=== PATIENT | male | born 1965 ===

== ENCOUNTER 2020-07-02 22:30 | Inpatient (IN) | payer OTHER ==
[2020-07-02] MEDS ORDERED: NITROGLYCERIN OINT 1 INCH/GM PACKET TOPICAL STA (22:43)
[2020-07-02] MEDS ORDERED: NITROGLYCERIN SL TABS 0.4 MG TAB SUBLINGUAL STA (22:43)
[2020-07-02] MEDS ORDERED: ASPIRIN 81 MG PO STA (22:43)
--- NOTE | 2020-07-02 23:03 | ED ---
SOB HPI - General Chief Complaint: Shortness of Breath Stated Complaint: SOB Time Seen by Provider: 07/02/20 22:42 Source: patient Mode of arrival: wheelchair Limitations: no limitations - History of Present Illness Initial Comments: This patient is a 55-year-old man who presents with complaints of shortness of breath and heavy feeling on his chest. The patient states that he has had worsening of his breathing going back for number weeks. The chest pressure came on this evening. He states that it has improved since he got here and they placed him on oxygen. The patient relates that he does have history of congestive heart failure. He was diagnosed with this a couple of years ago when he was in [place], at that time he also had a stroke with right-sided weakness that has improved after therapy. The patient has not had any nausea or vomiti ng, diaphoresis, palpitations or syncope. Patient did note at home that his blood pressure has been elevated. MD Complaint: shortness of breath, chest pain -: days(s) Severity: mild Quality: other (Pressure) Consistency: constant Improves With: oxygen Worsens With: lying flat, exertion Known History Of: congestive heart failure, diabetes Associated Symptoms: chest pain, cough, orthopnea Treatments Prior to Arrival: none - Related Data Home Oxygen Therapy: No Home Medications Medication Instructions Recorded Confirmed Atorvastatin [Lipitor] 20 mg PO DAILY 07/03/20 07/03/20 Clopidogrel [Plavix] 75 mg PO DAILY 07/03/20 07/03/20 Furosemide [Lasix] 40 mg PO DAILY 07/03/20 07/03/20 Insulin Glargine,Hum.rec.anlog See Protocol SQ AC-TID PRN 07/03/20 07/03/20 [Basaglar Kwikpen U-100] Losartan Potassium 100 mg PO DAILY 07/03/20 07/03/20 Potassium Chloride ER [K-Dur 20] 20 meq PO DAILY 07/03/20 07/03/20 Allergies Allergy/AdvReac Type Severity Reaction Status Date / Time Penicillins Allergy Swelling Verified 07/03/20 09:10 Review of Systems ROS Statement: Those systems with pertinent positive or pertinent negative responses have been documented in the HPI. ROS Other: All systems not noted in ROS Statement are negative. Constitutional: Denies: fever, chills, weakness Respiratory: Reports: cough (Clear sputum), dyspnea. Denies: wheezes, hemoptysis Cardiovascular: Reports: chest pain, dyspnea on exertion, orthopnea, edema. Denies: palpitations, syncope Gastrointestinal: Denies: abdominal pain, nausea, vomiting, melena, hematochezia Genitourinary: Denies: dysuria, hematuria Musculoskeletal: Denies: back pain Skin: Denies: rash Neurological: Denies: headache, weakness, numbness Past Medical History Past Medical History: CVA/TIA, Diabetes Mellitus, Hypertension Additional Past Medical History / Comment(s): right hand/leg weakness d/t CVA History of Any Multi-Drug Resistant Organisms: None Reported Past Surgical History: Adenoidectomy, Appendectomy, Tonsillectomy Past Psychological History: No Psychological Hx Reported Smoking Status: Never smoker Past Alcohol Use History: None Reported Past Drug Use History: None Reported General Exam Limitations: no limitations General appearance: alert, in no apparent distress Head exam: Present: atraumatic, normocephalic Eye exam: Present: normal appearance. Absent: scleral icterus, conjunctival injection Neck exam: Present: normal inspection, full ROM Respiratory exam: Present: respiratory distress (Mild tachypnea), rales (Bilateral bases). Absent: wheezes, rhonchi, stridor, accessory muscle use, decreased breath sounds, prolonged expiratory Cardiovascular Exam: Present: regular rate, normal rhythm, gallop. Absent: systolic murmur, diastolic murmur, rubs GI/Abdominal exam: Present: soft. Absent: distended, tenderness, guarding, rebound, rigid, mass Extremities exam: Present: normal capillary refill, pedal edema (Bilateral edema), other (Chronic stasis changes). Absent: tenderness, calf tenderness Back exam: Present: normal inspection. Absent: CVA tenderness (R), CVA tenderness (L) Neurological exam: Present: alert Skin exam: Present: warm, dry, intact, normal color. Absent: rash Course Vital Signs 07/02/20 07/02/20 07/02/20 22:32 23:07 23:30 Temperature 98.0 F Pulse Rate 80 73 Pulse Rate [ Pulse Oximetery ] Respiratory 24 24 22 Rate Blood Pressure 202/117 187/115 Blood Pressure [Left Arm Sitting] O2 Sat by Pulse 99 98 Oximetry 07/02/20 07/03/20 07/03/20 23:53 01:00 01:36 Temperature 98.7 F Pulse Rate 74 74 Pulse Rate [ 88 Pulse Oximetery ] Respiratory 22 22 Rate Blood Pressure 164/86 176/97 Blood Pressure 178/92 [Left Arm Sitting] O2 Sat by Pulse 100 99 98 Oximetry Medical Decision Making - Medical Decision Making This patient is a 55-year-old man who presents with dyspnea and chest pressure. He is hypertensive on arrival. The patient's workup does reveal presence of congestive heart failure, also elevated BUN/creatinine without any baseline for comparison here. The patient be admitted with cardiology consultation, also to have echocard iogram as he states the last one was performed in [place] approximately 2 years ago. Patient also to have nephrology consultation. Regarding the chest x-ray, patient denies pneumonia symptoms. He is not having fever or chills. He states that his cough is only productive of phlegm, no purulent sputum. - Lab Data Result diagrams: 07/09/20 07:08 07/09/20 07:08 Lab Results 07/02/20 07/02/20 07/02/20 Range/Units 22:50 22:50 22:50 WBC 7.1 (3.8-10.6) k/uL RBC 5.37 (4.30-5.90) m/uL Hgb 15.9 (13.0-17.5) gm/dL Hct 47.2 (39.0-53.0) % MCV 87.9 (80.0-100.0) fL MCH 29.6 (25.0-35.0) pg MCHC 33.7 (31.0-37.0) g/dL RDW 14.1 (11.5-15.5) % Plt Count 215 (150-450) k/uL Neutrophils % 70 % Lymphocytes % 18 % Monocytes % 6 % Eosinophils % 3 % Basophils % 1 % Neutrophils # 5.0 (1.3-7.7) k/uL Lymphocytes # 1.3 (1.0-4.8) k/uL Monocytes # 0.5 (0-1.0) k/uL Eosinophils # 0.2 (0-0.7) k/uL Basophils # 0.1 (0-0.2) k/uL PT 10.6 (9.0-12.0) sec INR 1.0 (<1.2) APTT 27.3 (22.0-30.0) sec D-Dimer 0.78 H (<0.60) mg/L FEU Sodium 134 L (137-145) mmol/L Potassium 4.3 (3.5-5.1) mmol/L Chloride 105 (98-107) mmol/L Carbon Dioxide 27 (22-30) mmol/L Anion Gap 2 mmol/L BUN 33 H (9-20) mg/dL Creatinine 2.61 H (0.66-1.25) mg/dL Est GFR (CKD-EPI)AfAm 30 (>60 ml/min/1.73 sqM) Est GFR (CKD-EPI)NonAf 26 (>60 ml/min/1.73 sqM) Glucose 118 H (74-99) mg/dL Plasma Lactic Acid Kiko (0.7-2.0) mmol/L Calcium 8.4 (8.4-10.2) mg/dL Magnesium 2.1 (1.6-2.3) mg/dL Total Bilirubin 1.0 (0.2-1.3) mg/dL AST 27 (17-59) U/L ALT 16 (4-49) U/L Alkaline Phosphatase 107 (38-126) U/L Troponin I (0.000-0.034) ng/mL NT-Pro-B Natriuret Pep pg/mL Total Protein 5.5 L (6.3-8.2) g/dL Albumin 2.8 L (3.5-5.0) g/dL 07/02/20 07/02/20 07/02/20 Range/Units 22:50 22:50 22:50 WBC (3.8-10.6) k/uL RBC (4.30-5.90) m/uL Hgb (13.0-17.5) gm/dL Hct (39.0-53.0) % MCV (80.0-100.0) fL MCH (25.0-35.0) pg MCHC (31.0-37.0) g/dL RDW (11.5-15.5) % Plt Count (150-450) k/uL Neutrophils % % Lymphocytes % % Monocytes % % Eosinophils % % Basophils % % Neutrophils # (1.3-7.7) k/uL Lymphocytes # (1.0-4.8) k/uL Monocytes # (0-1.0) k/uL Eosinophils # (0-0.7) k/uL Basophils # (0-0.2) k/uL PT (9.0-12.0) sec INR (<1.2) APTT (22.0-30.0) sec D-Dimer (<0.60) mg/L FEU Sodium (137-145) mmol/L Potassium (3.5-5.1) mmol/L Chloride (98-107) mmol/L Carbon Dioxide (22-30) mmol/L Anion Gap mmol/L BUN (9-20) mg/dL Creatinine (0.66-1.25) mg/dL Est GFR (CKD-EPI)AfAm (>60 ml/min/1.73 sqM) Est GFR (CKD-EPI)NonAf (>60 ml/min/1.73 sqM) Glucose (74-99) mg/dL Plasma Lactic Acid Kiko 0.7 (0.7-2.0) mmol/L Calcium (8.4-10.2) mg/dL Magnesium (1.6-2.3) mg/dL Total Bilirubin (0.2-1.3) mg/dL AST (17-59) U/L ALT (4-49) U/L Alkaline Phosphatase (38-126) U/L Troponin I 0.033 (0.000-0.034) ng/mL NT-Pro-B Natriuret Pep 55498 pg/mL Total Protein (6.3-8.2) g/dL Albumin (3.5-5.0) g/dL - EKG Data -: EKG Interpreted by Oh EKG shows normal: sinus rhythm, intervals (UT interval 230 ms, prolonged consistent with a first-degree AV block. QRS duration 124 ms, prolonged consistent with the bifascicular block. QTC is 481 ms, normal.), QRS complexes (There is a right bundle-branch block and a left anterior fascicular block, consistent with a bifascicular block.) Rate: normal (Rate 79 bpm) Interpretation: other (Possible old inferior infarct.) Disposition Clinical Impression: Congestive heart failure, Acute kidney injury, Hypertension Disposition: ADMITTED IP TO THIS [facility] Condition: Fair
[2020-07-02 23:09] LABS: Basophils # (A) 0.1 k/uL (0-0.2); Basophils % (A) 1 %; Eosinophils # (A) 0.2 k/uL (0-0.7); Eosinophils % (A) 3 %; HCT 47.2 % (39.0-53.0); HGB 15.9 gm/dL (13.0-17.5); Lymphocytes # (A) 1.3 k/uL (1.0-4.8); Lymphocytes % (A) 18 %; MCH 29.6 pg (25.0-35.0); MCHC 33.7 g/dL (31.0-37.0); MCV 87.9 fL (80.0-100.0); Mean Platelet Volume 7.8; Monocytes # (A) 0.5 k/uL (0-1.0); Monocytes % (A) 6 %; Neutrophils % (A) 70 %; Platelet Count 215 k/uL (150-450); RBC 5.37 m/uL (4.30-5.90); RDW 14.1 % (11.5-15.5); WBC 7.1 k/uL (3.8-10.6)
[2020-07-02 23:19] LABS: Albumin 2.8 g/dL (3.5-5.0); Calcium 8.4 mg/dL (8.4-10.2); Magnesium 2.1 mg/dL (1.6-2.3); Potassium 4.3 mmol/L (3.5-5.1); Total Protein 5.5 g/dL (6.3-8.2)
[2020-07-02 23:22] LABS: Partial Thromboplastin Time 27.3 sec (22.0-30.0); Prothrombin Time 10.6 sec (9.0-12.0)
[2020-07-02 23:25] LABS: D-Dimer 0.78 mg/L FEU (<0.60)
--- NOTE | 2020-07-02 23:31 | XR ---
EXAMINATION TYPE: XR chest 2V DATE OF EXAM: 07/02/2020 COMPARISON: NONE HISTORY: Difficulty breathing TECHNIQUE: FINDINGS: There is opacification left lower hemithorax. There is mild pulmonary congestion. Heart is probably enlarged. There are chest leads. Right lung is clear of consolidation. IMPRESSION: There is left lower lobe pneumonia and left pleural effusion. Mild pulmonary congestion.
[2020-07-02] MEDS ORDERED: MORPHINE SULFATE 4 MG/ML SYRINGE IV STA (23:36)
[2020-07-02] MEDS ORDERED: hydrALAZINE HCL 20 MG/ML 1 ML VIAL IVP STA (23:37)
[2020-07-02] MEDS ORDERED: FUROSEMIDE 10 MG/ML 4 ML VIAL IV SCH (23:45)
[2020-07-03] MEDS: HEPARIN SODIUM,PORCINE 5,000 UNIT/ML 1 ML VIAL SQ SCH ×4 (00:55→23:23)
[2020-07-03 02:10] LABS: Appearance,Urine Clear (Clear); Bilirubin,Urine Negative (Negative); Blood,Urine Moderate (Negative); Color,Urine Yellow; Glucose,Urine (UA) 2+ (Negative); Hyaline Casts,Urine 5 /lpf (0-2); Ketones,Urine Negative (Negative); Leukocyte Esterase,Urine Negative (Negative); Mucus,Urine Rare /hpf; Nitrite,Urine Negative (Negative); PH, Urine 6.5 (5.0-8.0); Protein,Urine 3+ (Negative); RBC,Urine 16 /hpf (0-5); Specific Gravity,Urine 1.013 (1.001-1.035); Squamous Epithelial Cell,Urine 1 /hpf (0-4); Urobilinogen,Urine <2.0 mg/dL (<2.0); WBC,Urine 3 /hpf (0-5)
--- NOTE | 2020-07-03 02:20 | US ---
EXAMINATION TYPE: US kidneys/renal and bladder DATE OF EXAM: 07/03/2020 COMPARISON: NONE CLINICAL HISTORY: kidney failure. Kidney failure. Hx hypertension. EXAM MEASUREMENTS: Right Kidney: 12.4 x 6.5 x 4.0 cm Left Kidney: 12.9 x 6.4 x 5.5 cm -Limited due to body habitus and gas. Right Kidney: No hydronephrosis or masses seen. Measures slightly enlarged versus upper limits of nor mal. Left Kidney: No hydronephrosis or masses seen. Measures slightly enlarged. Bladder: Appears to be anechoic. Bilateral Jets seen: Yes -Area of mixed echogenicity seen posterior to the bladder appears to be the prostate, appears promine nt measurin.7 x 5.4 x 4.7 cm. IMPRESSION: Normal exam. No evidence of renal mass or obstruction. Normal urinary bladder.
[2020-07-03 03:43] LABS: Creatinine,Urine Random 73.7 mg/dL
[2020-07-03 04:14] LABS: Total Protein,Urine Random >600 mg/dL (<12)
[2020-07-03 06:54] LABS: Glucose,Whole Blood 91 mg/dL (75-99)
[2020-07-03] MEDS: INSULIN ASPART (NovoLOG) 100 UNIT/ML VIAL SQ SCH ×4 (07:09→21:03)
[2020-07-03] MEDS: ATORVASTATIN 20 MG TAB PO SCH (08:56)
[2020-07-03] MEDS: CLOPIDOGREL 75 MG TAB PO SCH (08:57)
[2020-07-03] MEDS: NITROGLYCERIN OINT 1 INCH/GM PACKET TOPICAL SCH ×4 (08:58→21:04)
[2020-07-03] MEDS ORDERED: METOPROLOL SUCCINATE (ER) 50 MG TAB.ER.24H PO SCH (09:00)
[2020-07-03] MEDS ORDERED: LOSARTAN 50 MG TAB PO SCH (09:00)
--- NOTE | 2020-07-03 10:07 | P.CRDCN ---
History of Present Illness Consult date: 07/03/20 Consult reason: congestive heart failure Chief complaint: Shortness of breath History of present illness: This is a pleasant 55-year-old gentleman with documented history of diabetes, hypertension, hyperlipidemia, patient also has history of a CVA in October 2018, he underwent coiling of the brain also some stenting procedure of which exact details he is unclear. This was performed in [facility] in October 2018. According to the patient he's been progressively more and more short of breath over the past one month or more, he also had noticed significant increase in peripheral edema, up into his thigh area. Positive PND and orthopnea. Chest x- ray on presentation here showed a questionable left lower lobe pneumonia with left pleural effusion EKG showed normal sinus rhythm with first-degree AV block, right bundle branch block pattern, left anterior fascicular block inferior Q waves and some anterior ST depression noted. Blood pressure 178/80, heart rate in the 70s, 98% on 3 L of oxygen. White blood cell count 7.1, hemoglobin 15.9, platelet count 2:15. D-dimer 0.7. Sodium 134, potassium 4.3, chloride 105, CO2 27, BUN 33, creatinine 2.6. Troponin 0.03, 0.03, 0.045. BNP level XXVII,DC. Patient's home medications included Procardia, Plavix, losartan, and Lipitor. Here he has been placed on aspirin 325 mg daily, subcu heparin, Plavix, Lipitor, Lasix 40 IV twice a day, Cozaar 100 mg daily, Procardia 60 mg daily and Nitropaste. We will request an echocardiogram with Doppler study be performed, decrease the aspirin to 81 mg daily, discontinue the IV push Lasix and start the patient on a Lasix drip. Hold the Cozaar, check daily BUN and creatinine, initiate the patient on a beta tha. Past Medical History Past Medical History: Heart Failure, CVA/TIA, Diabetes Mellitus, Hypertension Additional Past Medical History / Comment(s): right hand/leg weakness d/t CVA History of Any Multi-Drug Resistant Organisms: None Reported Past Surgical History: Adenoidectomy, Appendectomy, Tonsillectomy Past Psychological History: No Psychological Hx Reported Smoking Status: Never smoker Past Alcohol Use History: None Reported Past Drug Use History: None Reported Medications and Allergies Home Medications Medication Instructions Recorded Confirmed Type Atorvastatin [Lipitor] 20 mg PO DAILY 07/03/20 07/03/20 History Clopidogrel [Plavix] 75 mg PO DAILY 07/03/20 07/03/20 History Furosemide [Lasix] 40 mg PO DAILY 07/03/20 07/03/20 History Insulin Glargine,Hum.rec.anlog See Protocol SQ AC-TID PRN 07/03/20 07/03/20 Hist ory [Basaglar Kwikpen U-100] Losartan Potassium 100 mg PO DAILY 07/03/20 07/03/20 History Potassium Chloride ER [K-Dur 20] 20 meq PO DAILY 07/03/20 07/03/20 History Allergies Allergy/AdvReac Type Severity Reaction Status Date / Time Penicillins Allergy Swelling Verified 07/03/20 09:10 Physical Exam Vitals: Vital Signs Temp Pulse Pulse Resp BP BP Pulse Ox 07/03/20 09:24 77 24 07/03/20 08:18 98.0 F 77 24 178/88 98 07/03/20 02:57 88 22 07/03/20 01:36 98.7 F 88 178/92 98 07/03/20 01:00 74 22 176/97 99 07/02/20 23:53 74 22 164/86 100 07/02/20 23:30 73 22 187/115 98 07/02/20 23:07 24 07/02/20 22:32 98.0 F 80 24 202/117 99 Intake and Output 07/02/20 07/03/20 07/03/20 22:59 06:59 14:59 Intake Total 240 130 Balance 240 130 Intake: IV 10 Invasive Line 1 10 Oral 240 120 Other: Voiding Method Urinal # Voids 2 Weight 134.263 kg 127.2 kg 127.2 kg PHYSICAL EXAMINATION: GENERAL: 55-year-old gentleman in no acute distress at the time of my examination HEENT: Head is atraumatic, normocephalic. Pupils equal, round. Sclera anic teric. Conjunctiva are clear. Mucous membranes of the mouth are moist. Neck is supple. There is elevated jugular venous pressure up to the angle of the jaw. No carotid bruit is heard. HEART EXAMINATION: Heart S1 S2 1 systolic murmur is heard CHEST EXAMINATION: Reveal diminished air entry bilaterally with rales heard to the bases bilaterally ABDOMEN: Soft, obese, nontender. Bowel sounds are heard. No organomegaly noted. EXTREMITIES: 2+ peripheral pulses with 2-3+ evidence of peripheral edema. NEUROLOGIC patient is awake, alert and oriented 3. . Results 07/02/20 22:50 07/02/20 22:50 Cardiac Enzymes 07/02/20 07/02/20 07/03/20 Range/Units 22:50 22:50 02:20 AST 27 (17-59) U/L Troponin I 0.033 0.032 (0.000-0.034) ng/mL 07/03/20 Range/Units 05:16 AST (17-59) U/L Troponin I 0.045 H* (0.000-0.034) ng/mL Coagulation 07/02/20 Range/Units 22:50 PT 10.6 (9.0-12.0) sec APTT 27.3 (22.0-30.0) sec CBC 07/02/20 Range/Units 22:50 WBC 7.1 (3.8-10.6) k/uL RBC 5.37 (4.30-5.90) m/uL Hgb 15.9 (13.0-17.5) gm/dL Hct 47.2 (39.0-53.0) % Plt Count 215 (150-450) k/uL Comprehensive Metabolic Panel 07/02/20 Range/Units 22:50 Sodium 134 L (137-145) mmol/L Potassium 4.3 (3.5-5.1) mmol/L Chloride 105 (98-107) mmol/L Carbon Dioxide 27 (22-30) mmol/L BUN 33 H (9-20) mg/dL Creatinine 2.61 H (0.66-1.25) mg/dL Glucose 118 H (74-99) mg/dL Calcium 8.4 (8.4-10.2) mg/dL AST 27 (17-59) U/L ALT 16 (4-49) U/L Alkaline Phosphatase 107 (38-126) U/L Total Protein 5.5 L (6.3-8.2) g/dL Albumin 2.8 L (3.5-5.0) g/dL Current Medications Generic Name Dose Route Start Last Admin Trade Name Freq PRN Reason Stop Dose Admin Aspirin 81 mg 07/04/20 09:00 Aspirin 81 Mg PO DAILY BRENT Atorvastatin Calcium 20 mg 07/03/20 09:00 07/03/20 08:56 Atorvastatin 20 Mg Tab PO 20 mg DAILY BRENT Administration Clopidogrel Bisulfate 75 mg 07/03/20 09:00 07/03/20 08:57 Clopidogrel 75 Mg Tab PO 75 mg DAILY BRENT Administration Heparin Sodium (Porcine) 5,000 unit 07/03/20 00:00 07/03/20 08:58 Heparin Sodium,Porcine 5,000 Unit/Ml 1 Ml Vial SQ 5,000 unit Q8HR BRENT Administration Furosemide 100 mg/ Sodium 100 mls @ 10 mls/hr 07/03/20 09:45 Chloride IV .Q10H BRENT 10 MG/HR Insulin Aspart 0 unit 07/03/20 07:30 07/03/20 07:09 Insulin Aspart (Novolog) 100 Unit/Ml Vial SQ Not Given ACHS [facility] Protocol Metoprolol Succinate 50 mg 07/03/20 09:00 07/03/20 08:56 Metoprolol Succinate (Er) 50 Mg Tab.Er.24h PO 50 mg DAILY BRENT Administration Nitroglycerin 1 inch 07/03/20 09:00 07/03/20 08:58 Nitroglycerin Oint 1 Inch/Gm Packet TOPICAL 1 inch QID BRENT Administration Sodium Chloride 10 ml 07/03/20 09:00 07/03/20 09:07 Sodium Chloride 0.9% Flush 10 Ml Syringe IV 10 ml BID BRENT Administration Intake and Output 07/02/20 07/03/20 07/03/20 22:59 06:59 14:59 Intake Total 240 130 Balance 240 130 Intake: IV 10 Invasive Line 1 10 Oral 240 120 Other: Voiding Method Urinal # Voids 2 Weight 134.263 kg 127.2 kg 127.2 kg Patient Weight 07/04/20 06:59 Weight 127.2 kg 07/02/20 22:50 07/02/20 22:50 EKG Interpretations (text) EKG shows normal sinus rhythm with first-degree AV block, right bundle branch block pattern, left anterior fascicular block, inferior Q waves and anterior ST depression. Assessment and Plan Plan: Assessment and plan #1 congestive heart failure, acute, LV function unknown #2 hypertension, accelerated #3 acute renal failure #4 diabetes #5 hyperlipidemia #6 history of CVA with mild residual weakness in the right arm, October 2018, patient did undergo coiling at that time questionable stenting as well #7 family history of premature coronary artery disease in his mom #8 mildly abnormal troponins, could be secondary to abnormal renal function, patient will however require workup for underlying coronary artery disease once his heart failure resolves. Plan We will obtain an echocardiogram with Doppler study. Decrease aspirin 81 mg daily. Discontinue Cozaar, discontinue IV push Lasix and start the patient on a Lasix drip. We will also start the patient on Coreg, discontinue Nitropaste, start the patient on some hydralazine and discontinue the Procardia. Patient will require workup for underlying coronary artery disease once his heart failure resolves. Further recommendations to follow. DNP note has been reviewed, I agree with a documented findings and plan of care. Patient was seen and examined.
[2020-07-03] MEDS: hydrALAZINE HCL 25 MG TAB PO SCH ×2 (11:04→21:01)
[2020-07-03] MEDS: FUROSEMIDE 100 MG in SODIUM CHLORIDE 0.9% 90 ML IV SCH ×2 (11:04→17:04)
[2020-07-03] MEDS: carvediloL 6.25 MG TAB PO SCH ×2 (11:04→17:33)
[2020-07-03 11:53] LABS: Glucose,Whole Blood 102 mg/dL (75-99)
--- NOTE | 2020-07-03 12:16 | P.NPCON ---
History of Present Illness - Reason for Consult acute renal failure - History of Present Illness reason for consultation: Acute kidney injury History of present illness: Patient is a 55-year-old male seen in consultation for acute kidney injury. Patient's creatinine was 2.61 on admission yesterday. Unknown as to what his baseline renal function is. Patient denies any prior history of kidney disease. He presented to the hospital due to worsening edema and shortness of breath. He was started on Lasix drip this morning. He has been voiding. No hematuria or dysuria. No chest pain. Denies regular use of nonsteroidals. He does have long-standing history of diabetes mellitus. he does admit to episodes of emesis in the morning. Oral intake has been fair. No diarrhea. blood pressures on the higher side. no fever or chills. No cough. Renal ultrasound revealed normal sized kidneys without any evidence of hydronephrosis. Vital signs are stable. General: The patient appeared well nourished and normally developed. HEENT: Head exam is unremarkable. Neck is without jugular venous distension. LUNGS: Breath sounds decreased. HEART: Rate and Rhythm are regular. ABDOMEN: soft, nontender. EXTREMITITES: 2+ edema. Past Medical History Past Medical History: Heart Failure, CVA/TIA, Diabetes Mellitus, Hypertension Additional Past Medical History / Comment(s): right hand/leg weakness d/t CVA History of Any Multi-Drug Resistant Organisms: None Reported Past Surgical History: Adenoidectomy, Appendectomy, Tonsillectomy Past Psychological History: No Psychological Hx Reported Smoking Status: Never smoker Past Alcohol Use History: None Reported Past Drug Use History: None Reported Medications and Allergies Home Medications Medication Instructions Recorded Confirmed Type Atorvastatin [Lipitor] 20 mg PO DAILY 07/03/20 07/03/20 History Clopidogrel [Plavix] 75 mg PO DAILY 07/03/20 07/03/20 History Furosemide [Lasix] 40 mg PO DAILY 07/03/20 07/03/20 History Insulin Glargine,Hum.rec.anlog See Protocol SQ AC-TID PRN 07/03/20 07/03/20 History [Basaglar Rosendapen U-100] Losartan Potassium 100 mg PO DAILY 07/03/20 07/03/20 History Potassium Chloride ER [K-Dur 20] 20 meq PO DAILY 07/03/20 07/03/20 History Allergies Allergy/AdvReac Type Severity Reaction Status Date / Time Penicillins Allergy Swelling Verified 07/03/20 09:10 Physical Exam Vitals: Vital Signs Temp Pulse Pulse Resp BP BP Pulse Ox 07/03/20 11:03 98.3 F 68 22 189/93 97 07/03/20 09:24 77 24 07/03/20 08:18 98.0 F 77 24 178/88 98 07/03/20 07:50 22 98 07/03/20 02:57 88 22 07/03/20 01:36 98.7 F 88 178/92 98 07/03/20 01:00 74 22 176/97 99 07/02/20 23:53 74 22 164/86 100 07/02/20 23:30 73 22 187/115 98 07/02/20 23:07 24 07/02/20 22:32 98.0 F 80 24 202/117 99 Intake and Output 07/02/20 07/03/20 07/03/20 22:59 06:59 14:59 Intake Total 240 150 Output Total 700 Balance 240 -550 Intake: IV 30 Invasive Line 1 30 Oral 240 120 Output: Urine 700 Other: Voiding Method Urinal Urinal # Voids 2 Weight 134.263 kg 127.2 kg 127.2 kg Results - Lab Results Most recent lab results Calcium 8.4 mg/dL (8.4-10.2) 07/02/20 22:50 Magnesium 2.1 mg/dL (1.6-2.3) 07/02/20 22:50 07/02/20 22:50 07/02/20 22:50 Assessment and Plan Plan: assessment: 1. Acute kidney injury secondary to ATN secondary to cardiorenal syndrome. creatinine 2.61 on admission. 2. Chronic kidney disease. Establish baseline renal function. Etiology is most likely diabetic kidney disease. Rule out GN. 3. CHF exacerbation. Unknown ejection fraction. 4. Volume overload. 5. Diabetes mellitus. 6. Hypervolemic hyponatremia. 7. Hypertension with chronic kidney disease. plan: Maintain Lasix drip at 10 mL an hour. Low-salt diet and 1500 mL fluid restriction. Coreg and hydralazine added today. Follow-up echocardiogram. check serologies. continue to monitor renal function and urine output. Thank you for the consultation. I will continue to follow the patient with you during his hospital stay.
--- NOTE | 2020-07-03 12:58 | ECHOF ---
Referral Reason:Heart Failure MEASUREMENTS -------- HEIGHT: 177.8 cm WEIGHT: 134.3 kg BP: 178/92 RVIDd: 2.9 cm (< 3.3) IVSd: 1.7 cm (0.6 - 1.1) LVIDd: 4.6 cm (3.9 - 5.3) LVPWd: 1.9 cm (0.6 - 1.1) IVSs: 1.8 cm LVIDs: 3.6 cm LVPWs: 2.5 cm LAESV Index (A-L): 41.49 ml/m Ao Diam: 3.4 cm (2.0 - 3.7) AV Cusp: 2.1 cm (1.5 - 2.6) MV EXCURSION: 14.751 mm (> 18.000) MV EF SLOPE: 105 mm/s (70 - 150) EPSS: 1.3 cm MV E Solis: 0.97 m/s MV DecT: 128 ms MV A Solis: 0.41 m/s MV E/A Ratio: 2.37 RAP: 5.00 mmHg RVSP: 42.23 mmHg FINDINGS -------- This was a technically difficult study with suboptimal apical views. The left ventricular size is normal. There is severe concentric left ventricular hypertrophy. Ove rall left ventricular systolic function is mildly impaired with, an EF between 45 - 50 %. Inferiorl ateral Hypokinesis The right ventricle is normal in size. LA is moderately dilated 34-39 ml/m2 The right atrium was not well visualized. 5.0mg of Lumason was utilized for enhancement of images Interatrial and interventricular septum intact. The aortic valve is trileaflet and appears structurally normal. There is mild aortic valve sclerosi s. There is no evidence of aortic regurgitation. There is no evidence of aortic stenosis. Mild mitral regurgitation is present. [id number] tricuspid regurgitation present. There is mild to moderate pulmonary hypertension. The right ventricular systolic pressure, as measured by Doppler, is 42.23mmHg. There is no pulmonic regurgitation present. The aortic root size is normal. IVC Not well visulized. There is no pericardial effusion. CONCLUSIONS -------- 1. The left ventricular size is normal. 2. There is severe concentric left ventricular hypertrophy. 3. Overall left ventricular systolic function is mildly impaired with, an EF between 45 - 50 %. 4. Inferiorlateral Hypokinesis 5. LA is moderately dilated 34-39 ml/m2 6. There is mild aortic valve sclerosis. 7. Mild mitral regurgitation is present. 8. [id number] tricuspid regurgitation present. 9. There is mild to moderate pulmonary hypertension. 10. The right ventricular systolic pressure, as measured by Doppler, is 42.23mmHg. POURER OFF: Kerri Hernandez RDCS
[2020-07-03] MEDS ORDERED: metOLazone 5 MG TAB PO STA (15:21)
[2020-07-03 16:52] LABS: Glucose,Whole Blood 152 mg/dL (75-99)
[2020-07-03 18:16] LABS: Hepatitis A Antibody IgM Non-Reactive (Non-Reactive); Hepatitis B Core IgM Non-Reactive (Non-Reactive); Hepatitis B Surface Antigen Non-Reactive (Non-Reactive); Hepatitis C IgG Antibody Non-Reactive (Non-Reactive)
--- NOTE | 2020-07-03 20:25 | P.HPIM ---
History of Present Illness H&P Date: 07/03/20 Chief Complaint: Shortness of breath History of presenting complaint: This is a pleasant 55-year-old patient of Dr. Fuentes. Patient is just 2 teenage sons. Patient with baseline right-sided weakness from prior stroke does use a cane. Also has obstructive sleep apnea. Also chronic kidney disease. Patient for noticed for 2 months has been increase in shortness of breath. Increasing edema. Sometimes get a bit lightheaded. Also notices that recently been sitting up upright sleeping on no recliner. No fever no chills. No cough. No chest pain or palpitation. Patient's sister the bedside. Review of systems: GEN.: Tired EYES: None HEENT: None NECK: None RESPIRATORY: As above CARDIOVASCULAR: As above] GASTROINTESTINAL: None GENITOURINARY: None MUSCULOSKELETAL: None LYMPHATICS: None HEMATOLOGICAL: None PSYCHIATRY: None NEUROLOGICAL: None Past medical history to include: CHF, stroke with right-sided weakness, diabetes, hypertension, Social history: Does not smoke or drink alcohol. Lives with 2 sons. Physical examination: VITAL SIGNS: 98, 18, 24, 202 / 170, 99% room air GENERAL: BMI 40.2, sitting up point chair, tired. EYES: Pupils equal. Conjunctiva normal. HEENT: External appearance of nose and ears normal, oral cavity grossly normal. NECK: JVD possibly replaced masses not palpable. HEART: First and second heart sounds are normal; edema present. LUNGS: Respiratory rate increased; decreased breath sounds at bases. ABDOMEN: Soft, nontender, liver spleen not palpable, no masses palpable. PSYCH: Alert and oriented x3; mood and affect normal. NEUROLOGICAL: Cranial nerves grossly intact; no facial asymmetry, power and sensation grossly intact. LYMPHATICS: No lymph nodes palpable in the axilla and neck INVESTIGATIONS, reviewed in the clinical context: White count 7.1 hemoglobin 15.9 platelets 215 potassium 4.3 bun 33 creatinine 2.61 Troponin I 0.033, 0.032, 0.045 Albumin 2.8 UA positive for protein 3+ glucose 2+ 2-D echocardiogram EF 45-50% some tricuspid regurgitation and some pulmonary hypertension inferolateral hypokinesis of the wall Ultrasound the kidneys and bladder-mostly unremarkable EKG tracing personally reviewed by me-normal sinus rhythm, right bundle-branch block subtle ST segment depression Chest x-ray film personally reviewed by me-pulmonary edema, cardiomegaly Assessment: -Acute on chronic congestive heart failure exacerbation from diastolic dysfunction EF 45-50% -Morbid obesity BMI 40.2 -Right hemiparesis from prior stroke -Diabetes mellitus type 2 -Essential hypertension -Chronic kidney disease stage III from diabetic nephropathy Plan: Patient was started on a Lasix drip. Home medications resumed. Accu-Cheks to be closely followed. DVT prophylaxis. Care was discussed with the patient and the sister question also. Consultation to cardiology and nephrology. Past Medical History Past Medical History: Heart Failure, CVA/TIA, Diabetes Mellitus, Hypertension Additional Past Medical History / Comment(s): right hand/leg weakness d/t CVA History of Any Multi-Drug Resistant Organisms: None Reported Past Surgical History: Adenoidectomy, Appendectomy, Tonsillectomy Past Psychological History: No Psychological Hx Reported Smoking Status: Never smoker Past Alcohol Use History: None Reported Past Drug Use History: None Reported Medications and Allergies Home Medications Medication Instructions Recorded Confirmed Type Atorvastatin [Lipitor] 20 mg PO DAILY 07/03/20 07/03/20 History Clopidogrel [Plavix] 75 mg PO DAILY 07/03/20 07/03/20 History Furosemide [Lasix] 40 mg PO DAILY 07/03/20 07/03/20 History Insulin Glargine,Hum.rec.anlog See Protocol SQ AC-TID PRN 07/03/20 07/03/20 History [Basaglar Kwikpen U-100] Losartan Potassium 100 mg PO DAILY 07/03/20 07/03/20 History Potassium Chloride ER [K-Dur 20] 20 meq PO DAILY 07/03/20 07/03/20 History Allergies Allergy/AdvReac Type Severity Reaction Status Date / Time Penicillins Allergy Swelling Verified 07/03/20 09:10 Physical Exam Vitals: Vital Signs Temp Pulse Pulse Resp BP BP Pulse Ox 07/03/20 11:03 98.3 F 68 22 189/93 97 07/03/20 09:24 77 24 07/03/20 08:18 98.0 F 77 24 178/88 98 07/03/20 02:57 88 22 07/03/20 01:36 98.7 F 88 178/92 98 07/03/20 01:00 74 22 176/97 99 07/02/20 23:53 74 22 164/86 100 07/02/20 23:30 73 22 187/115 98 07/02/20 23:07 24 07/02/20 22:32 98.0 F 80 24 202/117 99 Intake and Output 07/02/20 07/03/20 07/03/20 22:59 06:59 14:59 Intake Total 240 130 Output Total 300 Balance 240 -170 Intake: IV 10 Invasive Line 1 10 Oral 240 120 Output: Urine 300 Other: Voiding Method Urinal # Voids 2 Weight 134.263 kg 127.2 kg 127.2 kg Results CBC & Chem 7: 07/02/20 22:50 07/02/20 22:50 Labs: Abnormal Lab Results - Last 24 Hours (Table) 07/02/20 07/02/20 07/03/20 Range/Units 22:50 22:50 01:34 D-Dimer 0.78 H (<0.60) mg/L FEU Sodium 134 L (137-145) mmol/L BUN 33 H (9-20) mg/dL Creatinine 2.61 H (0.66-1.25) mg/dL Glucose 118 H (74-99) mg/dL Troponin I (0.000-0.034) ng/mL Total Protein 5.5 L (6.3-8.2) g/dL Albumin 2.8 L (3.5-5.0) g/dL Urine Protein 3+ H (Negative) Urine Glucose (UA) 2+ H (Negative) Urine Blood Moderate H (Negative) Urine RBC 16 H (0-5) /hpf Hyaline Casts 5 H (0-2) /lpf Urine Mucus Rare H (None) /hpf U Random Total Protein (<12) mg/dL 07/03/20 07/03/20 Range/Units 01:34 05:16 D-Dimer (<0.60) mg/L FEU Sodium (137-145) mmol/L BUN (9-20) mg/dL Creatinine (0.66-1.25) mg/dL Glucose (74-99) mg/dL Troponin I 0.045 H* (0.000-0.034) ng/mL Total Protein (6.3-8.2) g/dL Albumin (3.5-5.0) g/dL Urine Protein (Negative) Urine Glucose (UA) (Negative) Urine Blood (Negative) Urine RBC (0-5) /hpf Hyaline Casts (0-2) /lpf Urine Mucus (None) /hpf U Random Total Protein >600 H (<12) mg/dL Thrombosis Risk Factor Assmnt - Choose All That Apply Any of the Below Risk Factors Present?: Yes Each Factor Represents 1 point: Age 41-60 years, Heart failure (<1month), Obesity (BMI >25), Swollen legs (current) Other Risk Factors: No Thrombosis Risk Factor Assessment Total Risk Factor Score: 4 Thrombosis Risk Factor Assessment Level: Moderate Risk
[2020-07-03 20:54] LABS: Glucose,Whole Blood 130 mg/dL (75-99)
[2020-07-03 21:09] LABS: Anti-DNA, DS unit <1.0 IU/mL; DNA Double-Stranded NEGATIVE (NEGATIVE)
[2020-07-03 21:28] LABS: Protein, Total 4.6 g/dL (6.2-8.2)
[2020-07-04] MEDS ORDERED: ASPIRIN 325 MG TAB PO SCH (00:12)
[2020-07-04 06:46] LABS: Glucose,Whole Blood 97 mg/dL (75-99)
[2020-07-04] MEDS: INSULIN ASPART (NovoLOG) 100 UNIT/ML VIAL SQ SCH ×5 (06:52→20:45)
[2020-07-04] MEDS: FUROSEMIDE 100 MG in SODIUM CHLORIDE 0.9% 90 ML IV SCH ×3 (06:54→23:18)
[2020-07-04] MEDS: carvediloL 6.25 MG TAB PO SCH ×2 (06:54→17:29)
[2020-07-04] MEDS: ASPIRIN 81 MG PO SCH (08:44)
[2020-07-04] MEDS: NITROGLYCERIN OINT 1 INCH/GM PACKET TOPICAL SCH ×4 (08:44→23:16)
[2020-07-04] MEDS: hydrALAZINE HCL 25 MG TAB PO SCH ×2 (08:44→20:09)
[2020-07-04] MEDS: CLOPIDOGREL 75 MG TAB PO SCH (08:44)
[2020-07-04] MEDS: HEPARIN SODIUM,PORCINE 5,000 UNIT/ML 1 ML VIAL SQ SCH ×3 (08:44→23:16)
[2020-07-04] MEDS: ATORVASTATIN 20 MG TAB PO SCH (08:44)
[2020-07-04 09:02] LABS: Calcium 8.2 mg/dL (8.4-10.2); Magnesium 1.9 mg/dL (1.6-2.3); Potassium 3.8 mmol/L (3.5-5.1)
[2020-07-04] MEDS ORDERED: POTASSIUM CHLORIDE ER 20 MEQ TAB.ER PO STA (10:27)
--- NOTE | 2020-07-04 10:59 | P.PN ---
Subjective patient is seen in follow-up for acute kidney injury. Creatinine was 2.61 on admission and is 2.89 today. He is maintained on Lasix drip at 10 mL an hour. Weight trending down. no chest pain or shortness of breath. Feels better today. Vital signs are stable. General: The patient appeared well nourished and normally developed. HEENT: Head exam is unremarkable. Neck is without jugular venous distension. LUNGS: Lungs are clear to auscultation and percussion. Breath sounds decreased. HEART: Rate and Rhythm are regular. ABDOMEN: soft, nontender. EXTREMITITES: 2+ edema. Objective - Vital Signs Vital signs: Vital Signs Temp 97.4 F L 07/04/20 07:37 Pulse 67 07/04/20 08:20 Resp 20 07/04/20 08:41 BP 141/84 07/04/20 07:37 Pulse Ox 97 07/04/20 07:37 Intake & Output 07/03/20 07/04/20 07/04/20 18:59 06:59 18:59 Intake Total 1190 100 258.167 Output Total 700 2900 150 Balance 490 -2800 108.167 Weight 127.2 kg 124.6 kg Intake: IV 160 .9 10cc/ hr 60 Furosemide 100 mg In 60 Sodium Chloride 0.9% 90 ml @ 10 MG/HR 10 mls/hr IV .Q10H [facility] Rx#: [id number] Invasive Line 1 40 Intake, IV Titration 60 100 18.167 Amount Furosemide 100 mg In 60 100 18.167 Sodium Chloride 0.9% 90 ml @ 10 MG/HR 10 mls/hr IV .Q10H [facility] Rx#: [id number] Oral 970 240 Output: Urine 700 2900 150 Other: Voiding Method Urinal Urinal Urinal # Voids 2 - Labs CBC & Chem 7: 07/02/20 22:50 07/04/20 08:01 Labs: Abnormal Lab Results - Last 24 Hours (Table) 07/03/20 07/03/20 07/03/20 Range/Units 11:52 12:32 16:51 Sodium (137-145) mmol/L BUN (9-20) mg/dL Creatinine (0.66-1.25) mg/dL Glucose (74-99) mg/dL POC Glucose (mg/dL) 102 H 152 H (75-99) mg/dL Calcium (8.4-10.2) mg/dL Total Protein (PEP) 4.6 L (6.2-8.2) g/dL 07/03/20 07/04/20 Range/Units 20:48 08:01 Sodium 134 L (137-145) mmol/L BUN 35 H (9-20) mg/dL Creatinine 2.89 H (0.66-1.25) mg/dL Glucose 121 H (74-99) mg/dL POC Glucose (mg/dL) 130 H (75-99) mg/dL Calcium 8.2 L (8.4-10.2) mg/dL Total Protein (PEP) (6.2-8.2) g/dL Assessment and Plan Plan: Assessment: 1. Acute kidney injury secondary to ATN secondary to cardiorenal syndrome. creatinine 2.61 on admission - 2.89 today. 2. Chronic kidney disease. Establish baseline renal function. Etiology is most likely diabetic kidney disease. Rule out GN. 3. acute systolic CHF with ejection fraction of 45-50% with mild to moderate tricuspid regurgitation and moderate pulmonary hypertension. 4. Volume overload. improving with diuresis. 5. Diabetes mellitus. 6. Hypervolemic hyponatremia. better. 7. Hypertension with chronic kidney disease. plan: Maintain Lasix drip at 10 mL an hour. add metolazone 5 mg once daily. Low-salt diet and 1500 mL fluid restriction. follow-up pending serologies - negative so far. continue to monitor renal function and urine output.
[2020-07-04 11:56] LABS: Glucose,Whole Blood 109 mg/dL (75-99)
[2020-07-04] MEDS: metOLazone 5 MG TAB PO SCH (12:47)
--- NOTE | 2020-07-04 13:28 | P.PN ---
Subjective Progress Note Date: 07/04/20 This is a pleasant 55-year-old gentleman with documented history of diabetes, hypertension, hyperlipidemia, patient also has history of a CVA in October 2018, he underwent coiling of the brain also some stenting procedure of which exact details he is unclear. This was performed in [facility] in October 2018. According to the patient he's been progressively more and more short of breath over the past one month or more, he also had noticed significant increase in peripheral edema, up into his thigh area. Positive PND and orthopnea. Chest x- ray on presentation here showed a questionable left lower lobe pneumonia with left pleural effusion EKG showed normal sinus rhythm with first-degree AV block, right bundle branch block pattern, left anterior fascicular block inferior Q waves and some anterior ST depression noted. Blood pressure 178/80, heart rate in the 70s, 98% on 3 L of oxygen. White blood cell count 7.1, hemoglobin 15.9, platelet count 2:15. D-dimer 0.7. Sodium 134, potassium 4.3, chloride 105, CO2 27, BUN 33, creatinine 2.6. Troponin 0.03, 0.03, 0.045. BNP level XXVII,DC. Patient's home medications included Procardia, Plavix, losartan, and Lipitor. Here he has been placed on aspirin 325 mg daily, subcu heparin, Plavix, Lipitor, Lasix 40 IV twice a day, Cozaar 100 mg daily, Procardia 60 mg daily and Nitropaste. We will request an echocardiogram with Doppler study be performed, decrease the aspirin to 81 mg daily, discontinue the IV push Lasix and start the patient on a Lasix drip. Hold the Cozaar, check daily BUN and creatinine, initiate the patient on a beta tha. 07/04/2020 Patient was seen and examined this morning, sitting up at the chair bedside. Overall he feels significantly better. Diuresed well through the night last night. Blood pressure 130/60 with a heart rate in the 60s, 95% on room air. Sodium 134, potassium 3.8, BUN 35, creatinine 2.8. Magnesium 1.9. Echocardiogram with Doppler study was performed which revealed an ejection fraction of 45-50%. Inferior lateral hypokinesia noted, mild to moderate tricuspid regurg with moderate pulmonary hypertension. Ultrasound of the bladder was normal, no evidence of renal mass or obstruction. We will continue the patient on current dose of Lasix drip, along with his other medications. Continue to monitor the intake and output along with daily weights and daily lytes BUN and creatinine. Objective - Vital Signs Vital signs: Vital Signs Temp 97.4 F L 07/04/20 12:00 Pulse 63 07/04/20 12:00 Resp 18 07/04/20 12:00 BP 131/65 07/04/20 12:00 Pulse Ox 95 07/04/20 12:00 Intake & Output 07/03/20 07/04/20 07/04/20 18:59 06:59 18:59 Intake Total 1190 100 258.167 Output Total 700 2900 550 Balance 490 -2800 -291.833 Weight 127.2 kg 124.6 kg Intake: IV 160 .9 10cc/ hr 60 Furosemide 100 mg In 60 Sodium Chloride 0.9% 90 ml @ 10 MG/HR 10 mls/hr IV .Q10H [facility] Rx#: [id number] Invasive Line 1 40 Intake, IV Titration 60 100 18.167 Amount Furosemide 100 mg In 60 100 18.167 Sodium Chloride 0.9% 90 ml @ 10 MG/HR 10 mls/hr IV .Q10H [facility] Rx#: [id number] Oral 970 240 Output: Urine 700 2900 550 Other: Voiding Method Urinal Urinal Urinal # Voids 2 - Exam PHYSICAL EXAMINATION: GENERAL: 55-year-old gentleman in no acute distress at the time of my examination HEENT: Head is atraumatic, normocephalic. Pupils equal, round. Sclera anicteric. Conjunctiva are clear. Mucous membranes of the mouth are moist. Neck is supple. There is elevated jugular venous pressure up to the angle of the jaw. No carotid bruit is heard. HEART EXAMINATION: Heart S1 S2 1 systolic murmur is heard CHEST EXAMINATION: Reveal diminished air entry bilaterally with rales heard to the bases bilaterally ABDOMEN: Soft, obese, nontender. Bowel sounds are heard. No organomegaly noted. EXTREMITIES: 2+ peripheral pulses with 2-3+ evidence of peripheral edema. NEUROLOGIC patient is awake, alert and oriented 3. - Labs CBC & Chem 7: 07/02/20 22:50 07/04/20 08:01 Labs: Abnormal Lab Results - Last 24 Hours (Table) 09/07/03/20 07/03/20 Range/Units 12:32 16:51 20:48 Sodium (137-145) mmol/L BUN (9-20) mg/dL Creatinine (0.66-1.25) mg/dL Glucose (74-99) mg/dL POC Glucose (mg/dL) 152 H 130 H (75-99) mg/dL Calcium (8.4-10.2) mg/dL Total Protein (PEP) 4.6 L (6.2-8.2) g/dL 07/04/20 07/04/20 Range/Units 08:01 11:50 Sodium 134 L (137-145) mmol/L BUN 35 H (9-20) mg/dL Creatinine 2.89 H (0.66-1.25) mg/dL Glucose 121 H (74-99) mg/dL POC Glucose (mg/dL) 109 H (75-99) mg/dL Calcium 8.2 L (8.4-10.2) mg/dL Total Protein (PEP) (6.2-8.2) g/dL Assessment and Plan Plan: Assessment and plan #1 congestive heart failure, acute, LV function unknown #2 hypertension, accelerated #3 acute renal failure #4 diabetes #5 hyperlipidemia #6 history of CVA with mild residual weakness in the right arm, October 2018, patient did undergo coiling at that time questionable stenting as well #7 family history of premature coronary artery disease in his mom #8 mildly abnormal troponins, could be secondary to abnormal renal function, patient will however require workup for underlying coronary artery disease once his heart failure resolves. Plan We will continue current dose of IV Lasix drip, continue to monitor the intake and output along with daily weights and daily lytes BUN and creatinine. DNP note has been reviewed, I agree with a documented findings and plan of care. Patient was seen and examined.
[2020-07-04 14:51] LABS: Gamma Globulin 0.52 g/dL (0.70-1.50)
[2020-07-04 17:09] LABS: Glucose,Whole Blood 119 mg/dL (75-99)
--- NOTE | 2020-07-04 20:29 | P.PN ---
Progress Note - Text Progress Note Date: 07/04/20 Chief Complaint: Shortness of breath History of presenting complaint: This is a pleasant 55-year-old patient of Dr. Fuentes. Patient is just 2 teenage sons. Patient with baseline right-sided weakness from prior stroke does use a cane. Also has obstructive sleep apnea. Also chronic kidney disease. Patient for noticed for 2 months has been increase in shortness of breath. Increasing edema. Sometimes get a bit lightheaded. Also notices that recently been sitting up upright sleeping on no recliner. No fever no chills. No cough. No chest pain or palpitation. Patient's sister the bedside. Hospital course: Admitted with acute on chronic congestive heart exacerbation. [place] to have underlying chronic kidney disease. Started on Lasix drip. Today-breathing better. Eating better. Remains on Lasix drip. Sitting up in a chair. Over 2 L in negative fluid balance. Review of systems: Was done for constitutional, cardiovascular, GI, pulmonary. relevant finding as above Active Medications Aspirin (Aspirin 81 Mg) 81 mg PO DAILY [facility] Last Admin: 07/04/20 08:44 Dose: 81 mg Documented by: Atorvastatin Calcium (Atorvastatin 20 Mg Tab) 20 mg PO DAILY [facility] Last Admin: 07/04/20 08:44 Dose: 20 mg Documented by: Carvedilol (Carvedilol 6.25 Mg Tab) 6.25 mg PO BID-W/MEALS [facility] Last Admin: 07/04/20 17:29 Dose: 6.25 mg Documented by: Clopidogrel Bisulfate (Clopidogrel 75 Mg Tab) 75 mg PO DAILY [facility] Last Admin: 07/04/20 08:44 Dose: 75 mg Documented by: Heparin Sodium (Porcine) (Heparin Sodium,Porcine 5,000 Unit/Ml 1 Ml Vial) 5,000 unit SQ Q8HR [facility] Last Admin: 07/04/20 17:29 Dose: 5,000 unit Documented by: Hydralazine HCl (Hydralazine Hcl 25 Mg Tab) 25 mg PO BID [facility] Last Admin: 07/04/20 20:09 Dose: 25 mg Documented by: Furosemide 100 mg/ Sodium (Chloride) 100 mls @ 10 mls/hr IV .Q10H [facility] Last Admin: 07/04/20 08:43 Dose: 10 mg/hr, 10 mls/hr Documented by: Insulin Aspart (Insulin Aspart (Novolog) 100 Unit/Ml Vial) 0 unit SQ ACHS [facility]; Protocol Last Admin: 07/04/20 17:33 Dose: Not Given Documented by: Metolazone (Metolazone 5 Mg Tab) 5 mg PO DAILY [facility] Last Admin: 07/04/20 12:47 Dose: 5 mg Documented by: Nitroglycerin (Nitroglycerin Oint 1 Inch/Gm Packet) 1 inch TOPICAL QID [facility] Last Admin: 07/04/20 17:29 Dose: 1 inch Documented by: Sodium Chloride (Sodium Chloride 0.9% Flush 10 Ml Syringe) 10 ml IV BID [facility] Last Admin: 07/04/20 20:10 Dose: Not Given Documented by: Physical examination: VITAL SIGNS: 97.4, 623, 18, 1 31 x 55, 95% room air GENERAL: Sitting up in a chair, breathing better EYES: Pupils equal. Conjunctiva normal. NECK: JVD possibly replaced masses not palpable. HEART: First and second heart sounds are normal; edema present. LUNGS: Respiratory rate increased; decreased breath sounds at bases. ABDOMEN: Soft, nontender, liver spleen not palpable, no masses palpable. PSYCH: Alert and oriented x3; mood and affect normal. INVESTIGATIONS, reviewed in the clinical context: Potassium 3.8 bun 35 creatinine 2.89 Admission testing White count 7.1 hemoglobin 15.9 platelets 215 potassium 4.3 bun 33 creatinine 2.61 Troponin I 0.033, 0.032, 0.045 Albumin 2.8 UA positive for protein 3+ glucose 2+ 2-D echocardiogram EF 45-50% some tricuspid regurgitation and some pulmonary hypertension inferolateral hypokinesis of the wall Ultrasound the kidneys and bladder-mostly unremarkable EKG tracing personally reviewed by me-normal sinus rhythm, right bundle-branch block subtle ST segment depression Chest x-ray film personally reviewed by me-pulmonary edema, cardiomegaly Assessment: -Acute on chronic congestive heart failure exacerbation from diastolic dysfunction EF 45-50%-slow to respond, remain on IV Lasix drip -Morbid obesity BMI 40.2 -Right hemiparesis from prior stroke -Diabetes mellitus type 2 -Essential hypertension -Chronic kidney disease stage III from diabetic nephropathy Plan: Continue Lasix drip. Follow lites closely. Care was discussed with the patient. Questions answered.
[2020-07-04 20:45] LABS: Glucose,Whole Blood 138 mg/dL (75-99)
[2020-07-05] MEDS: carvediloL 6.25 MG TAB PO SCH (06:28)
[2020-07-05] MEDS: INSULIN ASPART (NovoLOG) 100 UNIT/ML VIAL SQ SCH ×4 (06:29→20:36)
[2020-07-05 06:35] LABS: Glucose,Whole Blood 90 mg/dL (75-99)
[2020-07-05 08:00] LABS: Calcium 8.4 mg/dL (8.4-10.2); Magnesium 1.8 mg/dL (1.6-2.3); Potassium 3.7 mmol/L (3.5-5.1)
[2020-07-05] MEDS: NITROGLYCERIN OINT 1 INCH/GM PACKET TOPICAL SCH ×4 (08:32→21:17)
[2020-07-05] MEDS: FUROSEMIDE 100 MG in SODIUM CHLORIDE 0.9% 90 ML IV SCH ×2 (08:32→16:13)
[2020-07-05] MEDS: HEPARIN SODIUM,PORCINE 5,000 UNIT/ML 1 ML VIAL SQ SCH ×3 (08:32→23:14)
[2020-07-05] MEDS: metOLazone 5 MG TAB PO SCH (08:33)
[2020-07-05] MEDS: hydrALAZINE HCL 25 MG TAB PO SCH ×3 (08:33→21:17)
[2020-07-05] MEDS: ASPIRIN 81 MG PO SCH (08:33)
[2020-07-05] MEDS: ATORVASTATIN 20 MG TAB PO SCH (08:33)
[2020-07-05] MEDS: CLOPIDOGREL 75 MG TAB PO SCH (08:33)
--- NOTE | 2020-07-05 10:05 | P.PN ---
Subjective Progress Note Date: 07/05/20 Principal diagnosis: This is a 55-year-old male seen in consultation because of cardiorenal syndrome, currently maintained on IV Lasix drip. Is known with diabetes hypertension history of CVA in October 2018. He came in because of shortness of breath and increasing edema, pulmonary hypertension with right ventricular pressure at 42 mm With IV Lasix he is diuresing well with 3.6 L and 3.4 L over the last 2 days. He claims his breathing is much better, is able to stand up and walk without any dizziness appetite is good. Mild cough no chest pain. No fever chills no nause a vomiting diarrhea. Creatinine is worsened slightly from 2.61-2.93 over the last 3 days Objective - Vital Signs Vital signs: Vital Signs Temp 98.6 F 07/05/20 08:31 Pulse 65 07/05/20 08:31 Resp 16 07/05/20 08:31 BP 168/94 07/05/20 08:31 Pulse Ox 99 07/05/20 08:31 Intake & Output 07/04/20 07/05/20 07/05/20 18:59 06:59 18:59 Intake Total 838.167 332.333 Output Total 775 2650 Balance 63.167 -2650 332.333 Weight 123.8 kg Intake: Intake, IV Titration 118.167 92.333 Amount Furosemide 100 mg In 118.167 92.333 Sodium Chloride 0.9% 90 ml @ 10 MG/HR 10 mls/hr IV .Q10H [facility] Rx#: [id number] Oral 720 240 Output: Urine 775 2650 Other: Voiding Method Urinal Urinal # Voids 3 Exam general he is awake alert oriented comfortable on nasal cannula HEENT exam no JVP neck is supple no facial asymmetry Lungs are clear to auscultation with good air entry bilaterally Heart sounds unremarkable for any murmur rub gallop Abdomen soft nontender Extremity exam was 2-3+ edema Neurologically awake alert oriented - Labs CBC & Chem 7: 07/02/20 22:50 07/05/20 07:15 Labs: Abnormal Lab Results - Last 24 Hours (Table) 07/03/20 07/04/20 07/04/20 Range/Units 12:32 11:50 17:06 Sodium (137-145) mmol/L BUN (9-20) mg/dL Creatinine (0.66-1.25) mg/dL POC Glucose (mg/dL) 109 H 119 H (75-99) mg/dL Albumin (PEP) 2.30 L (3.80-4.90) g/dL Gamma Globulins 0.52 L (0.70-1.50) g/dL 07/04/20 07/05/20 Range/Units 20:42 07:15 Sodium 134 L (137-145) mmol/L BUN 38 H (9-20) mg/dL Creatinine 2.93 H (0.66-1.25) mg/dL POC Glucose (mg/dL) 138 H (75-99) mg/dL Albumin (PEP) (3.80-4.90) g/dL Gamma Globulins (0.70-1.50) g/dL Assessment and Plan Assessment: Impression 1. Cardiorenal syndrome, on IV Lasix drip with diuresis about 3-3-1/2 L, creatinine though is worsening 2. Chronic kidney disease secondary diabetic nephropathy 3+ protein no previous creatinines available. Serum protein electrophoresis is no multiple myeloma protein. Urine protein to creatinine ratio is in the 10 g range. Ultrasound shows 12.4 and 12.9 cm kidneys 3. Significant edema improved 4. Hypertension not at target. The 1 6170 Recommendations. 1. Maintain diuretics IV Lasix drip. 2. Patient was informed that in the 24-48 hours we'll switch over to by mouth medication and see if he will respond otherwise possibility of renal replacement therapy may be needed 3. We'll monitor labs, intake and output and blood pressure
--- NOTE | 2020-07-05 11:10 | P.PN ---
Subjective Progress Note Date: 07/05/20 Principal diagnosis: Heart failure secondary to systolic dysfunction This is a pleasant 55-year-old with a past medical history significant for hypertension and diabetes and dyslipidemia who was admitted to the hospital was heart failure exacerbation as well as renal failure. The patient was sent to a July [id number]. He states he is feeling better internal shortness of breath. No symptoms of chest pain or chest discomfort. The creatinine continues to be elevated. Nephrology service is still on the case. The pressure continues to be elevated as well and I'm going to increase the dose of hydralazine to 25 mg by mouth 3 times a day. He underwent an ech ocardiogram which revealed mildly impaired LV function was EF between 45-50% was evidence of hypertensive heart disease. When he was seen and examined this morning he still have extensive crackles in both lung la. Objective - Vital Signs Vital signs: Vital Signs Temp 98.6 F 07/05/20 08:31 Pulse 65 07/05/20 08:31 Resp 16 07/05/20 08:31 BP 168/94 07/05/20 08:31 Pulse Ox 99 07/05/20 08:31 Intake & Output 07/04/20 07/05/20 07/05/20 18:59 06:59 18:59 Intake Total 838.167 342.333 Output Total 775 2650 Balance 63.167 -2650 342.333 Weight 123.8 kg Intake: IV 10 Invasive Line 1 10 Intake, IV Titration 118.167 92.333 Amount Furosemide 100 mg In 118.167 92.333 Sodium Chloride 0.9% 90 ml @ 10 MG/HR 10 mls/hr IV .Q10H [facility] Rx#: [id number] Oral 720 240 Output: Urine 775 2650 Other: Voiding Method Urinal Urinal Urinal # Voids 3 - Constitutional General appearance: Present: no acute distress - Respiratory Respiratory: bilateral: CTA - Cardiovascular Rhythm: regular Heart sounds: normal: S1, S2 - Labs CBC & Chem 7: 07/02/20 22:50 07/05/20 07:15 Labs: Abnormal Lab Results - Last 24 Hours (Table) 07/03/20 07/04/20 07/04/20 Range/Units 12:32 11:50 17:06 Sodium (137-145) mmol/L BUN (9-20) mg/dL Creatinine (0.66-1.25) mg/dL POC Glucose (mg/dL) 109 H 119 H (75-99) mg/dL Albumin (PEP) 2.30 L (3.80-4.90) g/dL Gamma Globulins 0.52 L (0.70-1.50) g/dL 07/04/20 07/05/20 Range/Units 20:42 07:15 Sodium 134 L (137-145) mmol/L BUN 38 H (9-20) mg/dL Creatinine 2.93 H (0.66-1.25) mg/dL POC Glucose (mg/dL) 138 H (75-99) mg/dL Albumin (PEP) (3.80-4.90) g/dL Gamma Globulins (0.70-1.50) g/dL Assessment and Plan Assessment: Assessment #1 congestive heart failure exacerbation secondary to systolic dysfunction with acute on chronic #2 uncontrolled blood pressure #3 acute on chronic renal failure #4 multiple comorbid conditions #5 mild cardiomyopathy Plan #1 he is on Lasix drip. #2 nephrology service still on the case #3 increase the dose of hydralazine #4 follow-up with the patient
[2020-07-05 11:59] LABS: Glucose,Whole Blood 126 mg/dL (75-99)
--- NOTE | 2020-07-05 13:09 | PN ---
PROGRESS NOTE DATE OF SERVICE: 07/05/2020 I am covering for Dr. Soni today. HISTORY OF PRESENT ILLNESS: This 55-year-old woman was admitted with shortness of breath and is on IV Lasix drip. The patient is being closely monitored. The creatinine is 2.93, the baseline about 2.67. BUN is also 38. Sodium is 130. Patient complains of tiredness and weakness. Troponin was found to be 0.045 and BNP was elevated at 600. PAST MEDICAL HISTORY: Reviewed. REVIEW OF SYSTEMS: CARDIOVASCULAR: As mentioned earlier. RESPIRATORY: As mentioned earlier. GI: No nausea or vomiting. : No dysuria. NERVOUS SYSTEM: No numbness or weakness. CURRENT MEDICATIONS: Reviewed and include aspirin, Lipitor, Coreg, Plavix, Lasix drip, heparin, hydralazine, NovoLog, Zaroxolyn, Nitro-Bid. Doses reviewed. PHYSICAL EXAM: Patient is alert, oriented x3. Pulse 65, blood pressure 168/94, respirations 16, temperature 98.2, pulse ox 98% on room air. HEENT: Conjunctivae normal. Oral mucosa moist. NECK: No jugular venous distention. No carotid bruits. No lymph node enlargement. CARDIOVASCULAR: S1 and S2 muffled, no S3 or S4. RESPIRATORY: Breath sounds diminished in the bases with bilateral scattered rhonchi and crackles. ABDOMEN: Soft, nontender. No mass palpable. EXTREMITIES: No edema, no swelling. NERVOUS SYSTEM: Higher functions as mentioned earlier. Moves all 4 limbs. No focal motor sensory deficits. LYMPHATICS: No lymph nodes palpable in the neck or axillae. SKIN: No rash. JOINTS: No active deforming arthropathy. LABS: WBC 7.2, hemoglobin 15.9, sodium is 134, potassium 3.7, creatinine is 2.93 and troponin 0.045. ASSESSMENT: 1. Congestive heart failure acute exacerbation with acute on chronic systolic dysfunction with ejection fraction 45% to 50%. On IV Lasix drip. 2. Morbid obesity. 3. Right hemiparesis from the previous stroke. 4. Diabetes mellitus type 2. 5. Hypertension. 6. Chronic kidney disease stage 3 from diabetic peripheral neuropathy. 7. Hyponatremia, mild. 8. Mild hypoalbuminemia with mild protein calorie malnutrition. 9. Proteinuria. 10.History of appendectomy. 11.History of adenoidectomy. 12.Obesity with body mass of 39.2. RECOMMENDATIONS AND DISCUSSION: In this 55-year-old gentleman who presented with multiple complex medical issues, we will monitor the patient closely. Continue the current management and symptomatic treatment. Otherwise we will continue with Lasix drip. Monitor fluid electrolyte balance closely. Closely follow with Cardiology, Nephrology. I would also recommend increasing the dose of Coreg and monitor blood pressure closely. The prognosis is guarded because of multiple complex medical issues. Further recommendations to follow. MMODL / IJN: [id number] /
--- NOTE | 2020-07-05 15:49 | XR ---
EXAMINATION TYPE: XR chest 1V portable DATE OF EXAM: 07/05/2020 COMPARISON: 07/02/2020 HISTORY: Difficulty breathing TECHNIQUE: FINDINGS: There is blunting of the left costophrenic angle. Heart size is normal. There is no heart f ailure. Thoracic aorta is atheromatous. There are chest leads. IMPRESSION: There is left pleural effusion that is improved compared to last exam. There is clearing of the congestive heart failure compared to last exam.
[2020-07-05] MEDS: carvediloL 12.5 MG TAB PO SCH (16:10)
[2020-07-05] MEDS ORDERED: POTASSIUM CHLORIDE ER 20 MEQ TAB.ER PO STA (16:15)
[2020-07-05 17:09] LABS: Glucose,Whole Blood 139 mg/dL (75-99)
[2020-07-05 20:07] LABS: Glucose,Whole Blood 141 mg/dL (75-99)
[2020-07-05] MEDS: MELATONIN 3 MG TABLET PO SCH (21:17)
[2020-07-06 06:49] LABS: Glucose,Whole Blood 95 mg/dL (75-99)
[2020-07-06] MEDS: INSULIN ASPART (NovoLOG) 100 UNIT/ML VIAL SQ SCH ×4 (06:51→21:06)
[2020-07-06] MEDS: carvediloL 12.5 MG TAB PO SCH ×2 (06:51→15:38)
[2020-07-06] MEDS: FUROSEMIDE 100 MG in SODIUM CHLORIDE 0.9% 90 ML IV SCH ×3 (08:17→19:21)
[2020-07-06] MEDS: HEPARIN SODIUM,PORCINE 5,000 UNIT/ML 1 ML VIAL SQ SCH ×3 (08:21→22:56)
[2020-07-06] MEDS: ATORVASTATIN 20 MG TAB PO SCH (08:21)
[2020-07-06] MEDS: CLOPIDOGREL 75 MG TAB PO SCH (08:21)
[2020-07-06] MEDS: NITROGLYCERIN OINT 1 INCH/GM PACKET TOPICAL SCH ×4 (08:22→21:06)
[2020-07-06] MEDS: hydrALAZINE HCL 25 MG TAB PO SCH ×3 (08:22→21:06)
[2020-07-06] MEDS: ASPIRIN 81 MG PO SCH (08:22)
[2020-07-06] MEDS: metOLazone 5 MG TAB PO SCH (08:22)
[2020-07-06 09:24] LABS: HCT 44.5 % (39.0-53.0); HGB 14.8 gm/dL (13.0-17.5); MCHC 33.2 g/dL (31.0-37.0); MCV 87.2 fL (80.0-100.0); Platelet Count 204 k/uL (150-450); WBC 5.6 k/uL (3.8-10.6)
[2020-07-06 09:37] LABS: Albumin 2.6 g/dL (3.5-5.0); Calcium 8.3 mg/dL (8.4-10.2); Magnesium 1.7 mg/dL (1.6-2.3); Potassium 3.9 mmol/L (3.5-5.1); Total Bilirubin 1.1 mg/dL (0.2-1.3); Total Protein 5.1 g/dL (6.3-8.2)
--- NOTE | 2020-07-06 11:21 | P.PN ---
Subjective Progress Note Date: 07/06/20 Principal diagnosis: This is a 55-year-old male seen in consultation because of cardiorenal syndrome, currently maintained on IV Lasix drip. Is known with diabetes hypertension history of CVA in October 2018. He came in because of shortness of breath and increasing edema, pulmonary hypertension with right ventricular pressure at 42 mm With IV Lasix he is diuresing well with 3 Liters approximately per day,his weight is going down is supposedly. He does not feel dizzy when he stands up although his creatinine is slowly. Mild cough no chest pain. No fever chills no nausea vomiting diarrhea. Creatinine is worsened slightly from 2.61-2.93 over the last 3 days Objective - Vital Signs Vital signs: Vital Signs Temp 97.7 F 07/06/20 07:40 Pulse 63 07/06/20 07:40 Resp 18 07/06/20 07:41 BP 156/81 07/06/20 07:40 Pulse Ox 95 07/06/20 07:40 Intake & Output 07/05/20 07/06/20 07/06/20 18:59 06:59 18:59 Intake Total 1639.166 100 Output Total 1400 2100 Balance 239.166 -2000 Weight 118.7 kg Intake: IV 30 Invasive Line 1 30 Intake, IV Titration 169.166 100 Amount Furosemide 100 mg In 169.166 100 Sodium Chloride 0.9% 90 ml @ 10 MG/HR 10 mls/hr IV .Q10H [facility] Rx#: [id number] Oral 1440 Output: Urine 1400 2100 Other: Voiding Method Urinal Urinal Urinal # Voids 4 on examination is awake alert oriented comfortable sitting in a chair. HEENT exam no JVP neck is supple no facial asymmetry Lungs are clear to auscultation good air entry bilaterally Tones are unremarkable for any murmur rub gallop Abdomen soft nontender Extremity exam was 1-2+ edema much better Neurologically awake alert oriented - Labs CBC & Chem 7: 07/06/20 08:37 07/06/20 08:37 Labs: Abnormal Lab Results - Last 24 Hours (Table) 07/05/20 07/05/20 07/05/20 Range/Units 11:51 16:57 20:06 Sodium (137-145) mmol/L BUN (9-20) mg/dL Creatinine (0.66-1.25) mg/dL Glucose (74-99) mg/dL POC Glucose (mg/dL) 126 H 139 H 141 H (75-99) mg/dL Calcium (8.4-10.2) mg/dL Total Protein (6.3-8.2) g/dL Albumin (3.5-5.0) g/dL 07/06/20 Range/Units 08:37 Sodium 133 L (137-145) mmol/L BUN 39 H (9-20) mg/dL Creatinine 3.10 H (0.66-1.25) mg/dL Glucose 144 H (74-99) mg/dL POC Glucose (mg/dL) (75-99) mg/dL Calcium 8.3 L (8.4-10.2) mg/dL Total Protein 5.1 L (6.3-8.2) g/dL Albumin 2.6 L (3.5-5.0) g/dL Assessment and Plan Assessment: Impression 1. Cardiorenal syndrome, on IV Lasix drip with diuresis about 3-1/2 L, creatinine though is worsening, was 2.61 on admission and currently 3.1 2. Chronic kidney disease secondary diabetic nephropathy 3+ protein no previous creatinines available. Serum protein electrophoresis is no multiple myeloma protein. Urine protein to creatinine ratio is in the 10 g range. Ultrasound shows 12.4 and 12.9 cm kidneys 3. Significant edema improved, weight down 4. Hypertension not at target. Recommendations. 1. Maintain diuretics IV Lasix drip. 2. Patient was informed that in the 24-48 hours we'll switch over to by mouth medication and see if he will respond otherwise possibility of renal replacement therapy may be needed 3. We'll monitor labs, intake and output and blood pressure
[2020-07-06 12:03] LABS: Glucose,Whole Blood 114 mg/dL (75-99)
--- NOTE | 2020-07-06 12:21 | P.PN ---
Subjective Progress Note Date: 07/06/20 Principal diagnosis: Heart failure secondary to systolic dysfunction This is a pleasant 55-year-old with a past medical history significant for hypertension and diabetes and dyslipidemia who was admitted to the hospital was heart failure exacerbation as well as renal failure. Also he was found to be in acute on chronic renal failure The patient was seen today July 062019. He is feeling better internal shortness of breath. On physical examination the crackles are less compared to before. Hemodynamically he continues to be hypertensive. I'm going to increase the dose of hydralazine to 50 mg by mouth 3 times a day. The weight has came down significantly. The echo revealed mildly impaired LV function was EF between 45-50% was evidence of hypertensive heart disease. He continues to be on Lasix IV and nephrology service continues to be on the case. The creatinine is worse. Objective - Vital Signs Vital signs: Vital Signs Temp 97.7 F 07/06/20 07:40 Pulse 63 07/06/20 07:40 Resp 18 07/06/20 07:41 BP 156/81 07/06/20 07:40 Pulse Ox 95 07/06/20 07:40 Intake & Output 07/05/20 07/06/20 07/06/20 18:59 06:59 18:59 Intake Total 1639.166 100 Output Total 1400 2100 200 Balance 239.166 -2000 -200 Weight 118.7 kg Intake: IV 30 Invasive Line 1 30 Intake, IV Titration 169.166 100 Amount Furosemide 100 mg In 169.166 100 Sodium Chloride 0.9% 90 ml @ 10 MG/HR 10 mls/hr IV .Q10H [facility] Rx#: [id number] Oral 1440 Output: Urine 1400 2100 200 Other: Voiding Method Urinal Urinal Urinal # Voids 4 1 - Constitutional General appearance: Present: no acute distress - Respiratory Respiratory: bilateral: diminished - Cardiovascular Rhythm: regular Heart sounds: normal: S1, S2 - Labs CBC & Chem 7: 07/06/20 08:37 07/06/20 08:37 Labs: Abnormal Lab Results - Last 24 Hours (Table) 07/05/20 07/05/20 07/06/20 Range/Units 16:57 20:06 08:37 Sodium 133 L (137-145) mmol/L BUN 39 H (9-20) mg/dL Creatinine 3.10 H (0.66-1.25) mg/dL Glucose 144 H (74-99) mg/dL POC Glucose (mg/dL) 139 H 141 H (75-99) mg/dL Calcium 8.3 L (8.4-10.2) mg/dL Total Protein 5.1 L (6.3-8.2) g/dL Albumin 2.6 L (3.5-5.0) g/dL 07/06/20 Range/Units 11:49 Sodium (137-145) mmol/L BUN (9-20) mg/dL Creatinine (0.66-1.25) mg/dL Glucose (74-99) mg/dL POC Glucose (mg/dL) 114 H (75-99) mg/dL Calcium (8.4-10.2) mg/dL Total Protein (6.3-8.2) g/dL Albumin (3.5-5.0) g/dL Assessment and Plan Assessment: Assessment #1 congestive heart failure exacerbation secondary to systolic dysfunction with acute on chronic #2 uncontrolled blood pressure #3 acute on chronic renal failure #4 multiple comorbid conditions #5 mild cardiomyopathy Plan #1 continue Lasix drip #2 continue monitor the kidney function and electrolytes #3 increase the dose of hydralazine #4 follow-up with the patient
--- NOTE | 2020-07-06 14:09 | US ---
EXAMINATION TYPE: US chest DATE OF EXAM: 07/06/2020 COMPARISON: NONE CLINICAL HISTORY: left effusion, dyspnea. TECHNIQUE: Targeted ultrasound of the posterior lower bilateral hemithoraces EXAM MEASUREMENTS: Left Pleural Effusion pocket size: 11.3 cm Left skin surface to fluid distance: 3.9 cm Left side marked for possible thoracentesis outside the dept. Pulmonologists are able to review the images in the patient?s EMR. IMPRESSIONS: 1. Left pleural effusion
[2020-07-06 17:38] LABS: Glucose,Whole Blood 117 mg/dL (75-99)
--- NOTE | 2020-07-06 17:53 | PN ---
PROGRESS NOTE DATE OF SERVICE: 07/06/2020 I am covering for Dr. Soni. HISTORY OF PRESENT ILLNESS: This 55-year-old gentleman was admitted with shortness of breath, CHF acute exacerbation, IV Lasix drip. The patient has got left pleural effusion. Creatinine is at 3.10, indicating possibly cardiorenal syndrome. Troponins are noted. The patient is rather diuresing in negative balance at this time. The patient has lost several kilos after admission. The chest ultrasound was also done to evaluate the pleural effusion, which showed 11.3 cm pocket of the pleural fluid. PAST MEDICAL HISTORY: Reviewed. REVIEW OF SYSTEMS: Cardiovascular system: No angina. Respiration as mentioned earlier. GI: As mentioned earlier. : No dysuria. NERVOUS SYSTEM: As mentioned earlier. CURRENT MEDICATIONS: Reviewed include aspirin, Lipitor. Coreg. Plavix. Lasix drip, NovoLog, Zestril, melatonin, Zaroxolyn. PHYSICAL EXAM: Patient is alert, oriented x3. Pulse 61. Blood pressure 176/90, respiration 14, temperature 97.2, pulse ox 98% on room air. HEENT: Conjunctivae normal. NECK: No JVD. CARDIOVASCULAR: S1, S2 muffled. Respiration: Breath sounds diminished in the bases. A few scattered rhonchi and crackles. ABDOMEN: Soft, obese. LEGS are no edema. No swelling. NERVOUS SYSTEM: No focal deficits. LABORATORY DATA: CBC within normal limits. Sodium 130, creatinine 3.10. ASSESSMENT: 1. Congestive heart failure acute exacerbation with acute on chronic systolic dysfunction, EF fraction 45% to 50% on IV Lasix drip. 2. Acute on chronic renal failure with possibly cardiorenal syndrome. 3. Possible chronic kidney disease stage 3. 4. Left pleural effusion, possibly secondary to pleural effusion which is persistent. 5. Morbid obesity. 6. Right hemiparesis from previous stroke. 7. Diabetes mellitus type 2. 8. Hypertension. 9. Hypernatremia, mild. 10.Mild hypoalbuminemia with mild protein calorie malnutrition. 11.Proteinuria. 12.History of appendectomy. 13.History of adenoidectomy. 14.Obesity with body mass of 39.2. 15.FULL CODE. RECOMMENDATIONS AND DISCUSSION: Recommend to continue current medications, symptomatic treatment. Otherwise ultrasound of the chest showed at least fluid pocket about 11 cm. I would recommend pulmonary consultation by Dr. Randell for possible thoracocentesis. Otherwise, continue to monitor. Continue with Lasix drip. Monitor intake/output chart carefully and repeat labs. Limit fluid intake. Guarded prognosis. Further recommendations to follow. MMODL / IJN: [id number] /
[2020-07-06 20:31] LABS: Glucose,Whole Blood 169 mg/dL (75-99)
[2020-07-06] MEDS: MELATONIN 3 MG TABLET PO SCH (21:06)
[2020-07-07] MEDS: FUROSEMIDE 100 MG in SODIUM CHLORIDE 0.9% 90 ML IV SCH ×3 (03:24→17:01)
[2020-07-07 06:22] LABS: Glucose,Whole Blood 90 mg/dL (75-99)
[2020-07-07] MEDS: INSULIN ASPART (NovoLOG) 100 UNIT/ML VIAL SQ SCH ×4 (06:23→20:55)
[2020-07-07] MEDS: carvediloL 12.5 MG TAB PO SCH ×2 (06:38→15:01)
[2020-07-07] MEDS: CLOPIDOGREL 75 MG TAB PO SCH (08:07)
[2020-07-07] MEDS: ASPIRIN 81 MG PO SCH (08:07)
[2020-07-07] MEDS: HEPARIN SODIUM,PORCINE 5,000 UNIT/ML 1 ML VIAL SQ SCH ×3 (08:07→23:01)
[2020-07-07] MEDS: metOLazone 5 MG TAB PO SCH (08:07)
[2020-07-07] MEDS: ATORVASTATIN 20 MG TAB PO SCH (08:07)
[2020-07-07] MEDS: NITROGLYCERIN OINT 1 INCH/GM PACKET TOPICAL SCH (08:07)
[2020-07-07] MEDS: lisinopriL 5 MG TAB PO SCH (08:07)
[2020-07-07] MEDS: hydrALAZINE HCL 25 MG TAB PO SCH ×3 (08:08→21:07)
[2020-07-07] MEDS: ISOSORBIDE MONONITRATE ER 30 MG TAB.ER.24H PO SCH (09:26)
[2020-07-07 09:46] LABS: Basophils # (A) 0.1 k/uL (0-0.2); Basophils % (A) 1 %; Eosinophils # (A) 0.2 k/uL (0-0.7); Eosinophils % (A) 3 %; HCT 48.3 % (39.0-53.0); HGB 15.5 gm/dL (13.0-17.5); Lymphocytes # (A) 1.6 k/uL (1.0-4.8); Lymphocytes % (A) 27 %; MCH 28.2 pg (25.0-35.0); MCHC 32.2 g/dL (31.0-37.0); MCV 87.7 fL (80.0-100.0); Mean Platelet Volume 7.5; Monocytes # (A) 0.4 k/uL (0-1.0); Monocytes % (A) 6 %; Neutrophils # (A) 3.7 k/uL (1.3-7.7); Neutrophils % (A) 62 %; Platelet Count 235 k/uL (150-450); RBC 5.51 m/uL (4.30-5.90); RDW 13.9 % (11.5-15.5); WBC 5.9 k/uL (3.8-10.6)
[2020-07-07 09:56] LABS: Calcium 8.5 mg/dL (8.4-10.2); Potassium 3.8 mmol/L (3.5-5.1)
--- NOTE | 2020-07-07 11:30 | P.PN ---
Subjective Progress Note Date: 07/07/20 This is a pleasant 55-year-old gentleman with documented history of diabetes, hypertension, hyperlipidemia, patient also has history of a CVA in October 2018, he underwent coiling of the brain also some stenting procedure of which exact details he is unclear. This was performed in [facility] in October 2018. According to the patient he's been progressively more and more short of breath over the past one month or more, he also had noticed significant increase in peripheral edema, up into his thigh area. Positive PND and orthopnea. Chest x- ray on presentation here showed a questionable left lower lobe pneumonia with left pleural effusion EKG showed normal sinus rhythm with first-degree AV block, right bundle branch block pattern, left anterior fascicular block inferior Q waves and some anterior ST depression noted. Blood pressure 178/80, heart rate in the 70s, 98% on 3 L of oxygen. White blood cell count 7.1, hemoglobin 15.9, platelet count 2:15. D-dimer 0.7. Sodium 134, potassium 4.3, chloride 105, CO2 27, BUN 33, creatinine 2.6. Troponin 0.03, 0.03, 0.045. BNP level XXVII,DC. Patient's home medications included Procardia, Plavix, losartan, and Lipitor. Here he has been placed on aspirin 325 mg daily, subcu heparin, Plavix, Lipitor, Lasix 40 IV twice a day, Cozaar 100 mg daily, Procardia 60 mg daily and Nitropaste. We will request an echocardiogram with Doppler study be performed, decrease the aspirin to 81 mg daily, discontinue the IV push Lasix and start the patient on a Lasix drip. Hold the Cozaar, check daily BUN and creatinine, initiate the patient on a beta tha. 07/04/2020 Patient was seen and examined this morning, sitting up at the chair bedside. Overall he feels significantly better. Diuresed well through the night last night. Blood pressure 130/60 with a heart rate in the 60s, 95% on room air. Sodium 134, potassium 3.8, BUN 35, creatinine 2.8. Magnesium 1.9. Echocardiogram with Doppler study was performed which revealed an ejection fraction of 45-50%. Inferior lateral hypokinesia noted, mild to moderate tricuspid regurg with moderate pulmonary hypertension. Ultrasound of the bladder was normal, no evidence of renal mass or obstruction. We will continue the patient on current dose of Lasix drip, along with his other medications. Continue to monitor the intake and output along with daily weights and daily lytes BUN and creatinine. 07/05/2020 Patient seen and examined this morning, overall doing significantly better. He continues to diurese well, his weight is down 4 kg from yesterday. Blood pressure 146/76 with a heart rate in the 60s, 95% on room air. White blood cell count 5.9, hemoglobin 15.5, platelet count 235. Sodium 132, potassium 3.8, BUN 44, creatinine 3.0. An ultrasound of the chest was performed yesterday which showed a left sided pleural effusion measuring 11.3 cm Objective - Vital Signs Vital signs: Vital Signs Temp 97.8 F 07/07/20 07:44 Pulse 61 07/07/20 07:44 Resp 18 07/07/20 07:45 BP 148/77 07/07/20 07:44 Pulse Ox 95 07/07/20 07:44 Intake & Output 07/06/20 07/07/20 07/07/20 18:59 06:59 18:59 Intake Total 1123.5 357.667 850 Output Total 700 2100 250 Balance 423.5 -1742.333 600 Weight 114.5 kg Intake: IV 30 10 Invasive Line 1 10 Invasive Line 2 20 10 Intake, IV Titration 73.5 117.667 Amount Furosemide 100 mg In 73.5 117.667 Sodium Chloride 0.9% 90 ml @ 10 MG/HR 10 mls/hr IV .Q10H [facility] Rx#: [id number] Oral 1020 240 840 Output: Urine 700 2100 250 Other: Voiding Method Urinal Urinal # Voids 2 1 - Exam PHYSICAL EXAMINATION: GENERAL: 55-year-old gentleman in no acute distress at the time of my examination HEENT: Head is atraumatic, normocephalic. Pupils equal, round. Sclera anicteric. Conjunctiva are clear. Mucous membranes of the mouth are moist. Neck is supple. There is elevated jugular venous pressure up to the angle of the jaw. No carotid bruit is heard. HEART EXAMINATION: Heart S1 S2 1 systolic murmur is heard CHEST EXAMINATION: Reveal diminished air entry bilaterally , left greater than the right, with rales heard to the bases bilaterally ABDOMEN: Soft, obese, nontender. Bowel sounds are heard. No organomegaly noted. EXTREMITIES: 2+ peripheral pulses with 2-3+ evidence of peripheral edema. NEUROLOGIC patient is awake, alert and oriented 3. - Labs CBC & Chem 7: 07/07/20 09:05 07/07/20 09:05 Labs: Abnormal Lab Results - Last 24 Hours (Table) 07/06/20 07/06/20 07/06/20 Range/Units 11:49 17:30 20:26 Sodium (137-145) mmol/L Chloride (98-107) mmol/L Carbon Dioxide (22-30) mmol/L BUN (9-20) mg/dL Creatinine (0.66-1.25) mg/dL Glucose (74-99) mg/dL POC Glucose (mg/dL) 114 H 117 H 169 H (75-99) mg/dL 07/07/20 Range/Units 09:05 Sodium 132 L (137-145) mmol/L Chloride 95 L (98-107) mmol/L Carbon Dioxide 33 H (22-30) mmol/L BUN 44 H (9-20) mg/dL Creatinine 3.08 H (0.66-1.25) mg/dL Glucose 133 H (74-99) mg/dL POC Glucose (mg/dL) (75-99) mg/dL Assessment and Plan Plan: Assessment and plan #1 congestive heart failure, acute, LV function unknown #2 hypertension, accelerated #3 acute renal failure #4 diabetes #5 hyperlipidemia #6 history of CVA with mild residual weakness in the right arm, October 2018, patient did undergo coiling at that time questionable stenting as well #7 family history of premature coronary artery disease in his mom #8 mildly abnormal troponins, could be secondary to abnormal renal function, patient will however require workup for underlying coronary artery disease once his heart failure resolves. Plan We will continue current dose of IV Lasix drip, continue to monitor the intake and output along with daily weights and daily lytes BUN and creatinine. DNP note has been reviewed, I agree with a documented findings and plan of care. Patient was seen and examined.
[2020-07-07 12:01] LABS: Glucose,Whole Blood 100 mg/dL (75-99)
[2020-07-07 14:27] LABS: C-ANCA <1:20 Titer (<1:20)
[2020-07-07] MEDS ORDERED: POTASSIUM CHLORIDE ER 20 MEQ TAB.ER PO STA (14:38)
--- NOTE | 2020-07-07 15:55 | PN ---
PROGRESS NOTE Patient is seen for followup for chronic kidney disease and acute kidney injury. Currently, patient is maintained on Lasix drip for volume overload. He has had a 24 hour output of about 2.8 L. Weight is down significantly since admission. Overall, patient states he is feeling better, although he continues to have significant edema. PHYSICAL EXAMINATION: On examination today, blood pressure was 148/77, heart rate 61 per minute he is afebrile/ Examination of the heart S1, S2. Examination of lungs decreased breath sounds at bases. Abdomen is soft, nontender. Examination of the lower extremities shows edema 3 to 4+ bilaterally. [employer] exam grossly intact. LABS: Show sodium 132, potassium 3.8, chloride 95, CO2 is 33, BUN 44, creatinine 3.08 hemoglobin 15.5 g/dL. ASSESSMENT: 1. Acute kidney injury cardiorenal, currently maintained on Lasix drip. Serum creatinine staying at about 3 mg/dL. I will discontinue the Lasix drip tomorrow. 2. Chronic kidney disease secondary to diabetic nephropathy with protein creatinine ratio about 10 g suggesting 10 g of proteinuria, started on VARINDER inhibitors this admission. 3. Significant edema, now improving. 4. Blood pressure remains elevated. However, expect further improvement with ongoing diuresis. VARINDER inhibitors have just been added. PLAN: Continue Lasix drip for one more day and switch to IV push Lasix tomorrow. Continue with the VARINDER inhibitors. Repeat labs in a.m. Patient will need followup as outpatient. MMODL / IJN: [id number] /
[2020-07-07 16:48] LABS: Glucose,Whole Blood 158 mg/dL (75-99)
--- NOTE | 2020-07-07 18:07 | PN ---
PROGRESS NOTE DATE OF SERVICE: 07/07/2020 I am covering for Dr. Soni. This 55-year-old gentleman who was admitted with CHF, acute exacerbation, is still on IV Lasix drip. The patient is diuresing significantly, but even then there is a persistent left pleural effusion. Chest ultrasound showed almost 11 cm of fluid. Most recent chest x-ray, which was personally reviewed by me, showed persistent left pleural effusion. Past medical history reviewed. REVIEW OF SYSTEMS: CARDIOVASCULAR SYSTEM: As mentioned earlier. RESPIRATORY SYSTEM: As mentioned earlier. GI: No nausea, vomiting. : No dysuria or retention. NERVOUS SYSTEM: No numbness, weakness. CURRENT MEDICATIONS: Reviewed. They include Lipitor 20 mg daily, Coreg 12.5 mg b.i.d., Lasix drip at 20 mg/hour, Apresoline, NovoLog, Imdur, Zestril, melatonin and Zaroxolyn. PHYSICAL EXAMINATION: Patient is alert, oriented x3. Pulse 64, blood pressure 137/74, respiration 14, temperature 97.7, pulse ox 94% on room air. HEENT: Conjunctivae normal. NECK: No jugular venous distention. CARDIOVASCULAR SYSTEM: S1, S2 muffled. RESPIRATORY SYSTEM: Breath sounds diminished at the bases. A few scattered rhonchi and crackles. ABDOMEN: Soft, obese, non-tender. LEGS: Bilateral leg edema. NERVOUS SYSTEM: No focal deficit. LABS: CBC within normal limits. Sodium 132, creatinine 3.08. Yesterday it was 3.10. ASSESSMENT: 1. Congestive heart failure, acute exacerbation, with acute on chronic systolic dysfunction, ejection fraction 45% to 50% with IV Lasix drip. 2. Acute on chronic renal failure, possibly cardiorenal syndrome. 3. Possible chronic kidney disease, stage 3. 4. Left pleural effusion possibly secondary secondary to congestive heart failure, which is persistent. 5. Morbid obesity. 6. Right hemiparesis from previous stroke. 7. Diabetes mellitus, type 2. 8. Hypertension. 9. Hyponatremia mild. 10.Mild hypoalbuminemia with mild protein-calorie malnutrition. 11.Proteinuria. 12.History of appendectomy. 13.History of adenoidectomy. 14.Obesity with body mass index of 39.6. 15.FULL CODE. RECOMMENDATIONS AND DISCUSSION: I recommend to continue current medications, continue symptomatic treatment. Continue with the Lasix drip. I would also recommend a repeat chest x-ray. Pulmonary consultation. Continue the rest of the medications. Monitor creatinine closely. Prognosis extremely guarded. Closely follow with Cardiology and Pulmonology. Further recommendations to follow. MMODL / IJN: [id number] / MTDD
[2020-07-07 19:20] LABS: Hemoglobin A1C 6.6 % (4.0-6.0)
[2020-07-07 20:54] LABS: Glucose,Whole Blood 109 mg/dL (75-99)
[2020-07-07] MEDS: MELATONIN 3 MG TABLET PO SCH (21:07)
--- NOTE | 2020-07-07 22:09 | CONS ---
CONSULTATION PULMONARY/CRITICAL CARE CONSULTATION: DATE OF SERVICE: 07/07/2020 REASON FOR CONSULTATION: Shortness of breath and left pleural effusion. This is a 55-year-old male who apparently was evaluated in the emergency room on July 02. We were just consulted today. We are apparently being consulted because the patient had shortness of breath and was discovered to have a left pleural effusion which was about 11 cm in size based on a recent ultrasound. He presented to the emergency room with complaints of shortness of breath and a heavy feeling in his chest. Apparently his shortness of breath had been going on for a couple of weeks. The chest pressure occurred on the evening of his admission to the emergency room. He apparently was placed on oxygen in the emergency room and felt better. He does have a history of congestive heart failure. He apparently was diagnosed with heart failure recently when he was in [place]. In addition, at that time he apparently sustained a CVA with right- sided weakness that has improved. Currently the patient is feeling reasonably well other than when he is walking around, at which time he does develop increasing shortness of breath. His left posterior chest was marked by ultrasound. Unfortunately, the patient is on aspirin, Plavix and subcutaneous heparin. We will have to hold those medications before we anticipate doing a thoracentesis. MEDICATIONS: His home medications include potassium chloride, losartan, insulin, Lasix, Plavix, Lipitor. His current inpatient medications include Lipitor, Coreg, Lasix in the form of Lasix drip, subcutaneous heparin, Apresoline, NovoLog, Imdur, Zestril, melatonin, Zaroxolyn and sodium chloride IV. He was also on Plavix and aspirin, but those 2 things have been discontinued. ALLERGIES: PENICILLIN. PAST MEDICAL HISTORY: Past medical history includes diabetes, hypertension and CVA. SURGICAL HISTORY: Surgical history includes tonsillectomy, appendectomy, adenoidectomy. SOCIAL HISTORY: Negative tobacco use. He denies any alcohol use or illicit drug use. FAMILY HISTORY: Noncontributory. Both parents were healthy. REVIEW OF SYSTEMS: CONSTITUTIONAL: Negative. NEUROLOGIC: Negative. HEENT: Negative. CARDIOVASCULAR: Chest heaviness, resolved. PULMONARY: Shortness of breath on exertion. GI: Negative. : Negative. RHEUMATOLOGIC: Negative. IMMUNOLOGIC: Negative. ENDOCRINOLOGIC: Negative. DERMATOLOGIC: Negative. PHYSICAL EXAMINATION: VITAL SIGNS: Current vital signs are reviewed. They include a temperature of 97.7 heart rate 64, respiratory rate 14, blood pressure 137/74, mean 95, and room-air saturation 95%. GENERAL APPEARANCE: He appears in no acute distress. HEENT: Examination is grossly unremarkable. NECK: Supple. CARDIOVASCULAR: Examination reveals regular rhythm and rate. S1, S2 normal. Heart rate 64. No murmur. LUNGS: Lungs reveal diminished breath sounds at the left base. There is some dullness at the left base. The right lung is clear. I do not hear any wheezes, rhonchi or crackles. ABDOMEN: Soft. Bowel sounds are heard. EXTREMITIES: Intact. No significant edema. Maybe slight edema noted bilaterally. SKIN: Without rash. NEUROLOGIC: Neurologic examination is nonfocal. LABS/IMAGING: Labs are reviewed. White count 5.9, hemoglobin 15.5, hematocrit 48.3, platelet count 335,000. Sodium 132, potassium 3.8, chloride 95. CO2 33. Anion gap is 4. BUN and creatinine were 44 and 3.08. Microbiology is negative. A chest ultrasound done yesterday shows a pocket on the left side that is 11.3 cm. Chest x-ray on 07/05 shows a left-sided pleural effusion. Medications are reviewed. ASSESSMENT: 1. Left pleural effusion, likely secondary to congestive heart failure, causing the patient shortness of breath, particularly on exertion. 2. Chronic kidney disease, which may also be contributing to the patient's fluid overload/pleural effusion. 3. History of recent cerebrovascular accident with right-sided weakness, which has improved. 4. Diabetes mellitus. 5. Hypertension. 6. Previous adenoidectomy, appendectomy and tonsillectomy. 7. Lifelong nonsmoker. PLAN: The patient's Plavix and aspirin were discontinued. He will continue on the subcutaneous heparin for now. Will discontinue that before the procedure. Probably will do a thoracentesis on . Additional recommendations and suggestions are forthcoming. The left posterior chest was marked. The pocket size is 11.3 cm. No additional recommendations are made. Again, we will continue to follow. MMODL / IJN: [id number] /
[2020-07-08 06:25] LABS: Glucose,Whole Blood 91 mg/dL (75-99)
[2020-07-08] MEDS: carvediloL 12.5 MG TAB PO SCH ×3 (07:03→15:50)
[2020-07-08] MEDS: INSULIN ASPART (NovoLOG) 100 UNIT/ML VIAL SQ SCH ×4 (07:06→21:48)
[2020-07-08] MEDS: ISOSORBIDE MONONITRATE ER 30 MG TAB.ER.24H PO SCH (08:11)
[2020-07-08] MEDS: ATORVASTATIN 20 MG TAB PO SCH (08:11)
[2020-07-08] MEDS: metOLazone 5 MG TAB PO SCH (08:11)
[2020-07-08] MEDS: HEPARIN SODIUM,PORCINE 5,000 UNIT/ML 1 ML VIAL SQ SCH ×2 (08:12→15:50)
[2020-07-08] MEDS: hydrALAZINE HCL 25 MG TAB PO SCH ×3 (08:12→21:49)
[2020-07-08] MEDS: lisinopriL 5 MG TAB PO SCH (08:12)
--- NOTE | 2020-07-08 08:13 | XR ---
EXAMINATION TYPE: XR chest 2V DATE OF EXAM: 07/08/2020 COMPARISON: Prior chest x-ray 07/05/2020 HISTORY: Congestive heart failure, pleural effusion TECHNIQUE: Frontal and lateral views of the chest are obtained. FINDINGS: There is persistent abnormal density at the left lung base with obscured left hemidiaphrag m, blunting of the left costophrenic angle. No pneumothorax. Heart is stable. Aorta is dense. IMPRESSION: Persistent left lower lobe atelectasis versus pneumonia and associated effusion.
[2020-07-08] MEDS: FUROSEMIDE 100 MG in SODIUM CHLORIDE 0.9% 90 ML IV SCH (08:16)
[2020-07-08 09:55] LABS: Calcium 8.3 mg/dL (8.4-10.2); Potassium 3.9 mmol/L (3.5-5.1)
[2020-07-08 10:17] LABS: Basophils # (A) 0.1 k/uL (0-0.2); Basophils % (A) 1 %; Eosinophils # (A) 0.2 k/uL (0-0.7); Eosinophils % (A) 2 %; HCT 46.7 % (39.0-53.0); HGB 14.7 gm/dL (13.0-17.5); Lymphocytes # (A) 1.7 k/uL (1.0-4.8); Lymphocytes % (A) 25 %; MCH 27.9 pg (25.0-35.0); MCHC 31.4 g/dL (31.0-37.0); Mean Platelet Volume 7.7; Monocytes # (A) 0.5 k/uL (0-1.0); Monocytes % (A) 8 %; Neutrophils # (A) 4.3 k/uL (1.3-7.7); Neutrophils % (A) 63 %; Platelet Count 224 k/uL (150-450); RBC 5.25 m/uL (4.30-5.90); RDW 14.2 % (11.5-15.5); WBC 6.9 k/uL (3.8-10.6)
[2020-07-08 12:04] LABS: Glucose,Whole Blood 108 mg/dL (75-99)
--- NOTE | 2020-07-08 13:05 | PN ---
PROGRESS NOTE Mr. Melisas is a 55-year-old male who presented with symptoms of progressive dyspnea, evidence with significant peripheral edema and hypertension and had evidence of congestive heart failure. He had a prior history of stroke. He had an echocardiogram performed at the time of his admission that revealed an ejection fraction 45% to 50% with mild mitral and mild to moderate tricuspid regurgitation. He feels better today. His breathing is better. He denies any symptoms of chest pain. He denies any dizziness. He denies any palpitation. His energy is better. He continues to have evidence of left lower lobe atelectasis with evidence of effusion and was evaluated by Dr. Jeronimo for thoracentesis. His aspirin and Plavix are on hold for this thoracentesis. Otherwise, he continues to be on Lasix 60 mg IV q.12 hours, Coreg 12.5 mg twice a day, Lipitor 20 mg daily, hydralazine 75 mg 3 times a day, lisinopril 5 mg daily, and metolazone 5 mg daily in addition to isosorbide mononitrate 30 mg daily. PHYSICAL EXAMINATION: Blood pressure 120/60 with a heart rate in the 70s. Lungs with decreased breath sounds at the bases, more on the left side. HEART: Regular rate and rhythm, S1, S2. No S3. No rub. ABDOMEN: Soft, nontender. EXTREMITIES: Trace edema. LAB DATA: Revealed BUN and creatinine of 50 and 3.22. Potassium 3.9, hemoglobin of 14.7. IMPRESSION: 1. Congestive heart failure, improving. 2. Hypertension. 3. Pleural effusion. 4. History of stroke. 5. Chronic kidney disease. RECOMMENDATION: I will switch him to oral recommendation. I will stop his Zaroxolyn and follow his renal function. Will continue to hold his aspirin and clopidogrel pending the thoracentesis and depending on his blood pressure and renal function, further recommendation will be made. MMODL / IJN: [id number] /
--- NOTE | 2020-07-08 14:36 | P.PN ---
Subjective Progress Note Date: 07/08/20 Principal diagnosis: Shortness of breath On 07/08/2020 patient seen in follow-up on selective care unit. Patient was admitted to the hospital on 07/03/2020 with complaints of shortness of breath, and was diagnosed with acute exacerbation of CHF with systolic dysfunction. His been diuresed, and she was on Lasix infusion which was transitioned over to Lasix 60 mg twice daily, nephrology is following, he is in negative fluid balance, fluid balance is difficult to estimate, but his weight is down by 0.7 kg in the last 24 hours. Today's chest x-ray shows persistent left lower lobe atelectasis versus pneumonia and associated pleural effusion. Yesterday we stopped the patient Plavix and aspirin with the plan of left thoracentesis possibly on . Today's labs have been reviewed, CBC is within normal limits, sodium 133, relatively stable, potassium is 3.9, chloride is 94, CO2 is 35, BUN is 50, and creatinine is 3.22 with some worsening in renal function. No worsening dyspnea, no complaints of chest pain, his echocardiogram during this admission revealed an ejection fraction of 45-50% with mild mitral and mild to moderate tricuspid regurgitation. Overall his breathing easier, feeling better. Cardiology is following. Objective - Vital Signs Vital signs: Vital Signs Temp 98.0 F 07/08/20 11:00 Pulse 70 07/08/20 11:00 Resp 16 07/08/20 11:00 BP 121/69 07/08/20 11:00 Pulse Ox 98 07/08/20 11:00 Intake & Output 07/07/20 07/08/20 07/08/20 18:59 06:59 18:59 Intake Total 1243.914 536 7169.167 Output Total 750 700 Balance 493.667 -600 1170.167 Weight 113.8 kg Intake: IV 30 10 Invasive Line 2 30 10 Intake, IV Titration 133.667 100 20.167 Amount Furosemide 100 mg In 133.667 100 20.167 Sodium Chloride 0.9% 90 ml @ 10 MG/HR 10 mls/hr IV .Q10H BRENT Rx#: [id number] Oral 1080 1140 Output: Urine 750 700 Other: Voiding Method Urinal Urinal Urinal # Voids 1 - Exam GENERAL EXAM: Alert, very pleasant, 65-year-old white male, on room air, with a pulse ox of 98% comfortable in no apparent distress. HEAD: Normocephalic/atraumatic. EYES: Normal reaction of pupils, equal size. Conjunctiva pink, sclera white. NOSE: Clear with pink turbinates. THROAT: No erythema or exudates. NECK: No masses, no JVD, no thyroid enlargement, no adenopathy. CHEST: No chest wall deformity. Symmetrical expansion. LUNGS: Equal air entry with no crackles, wheeze, rhonchi or dullness. CVS: Regular rate and rhythm, normal S1 and S2, no gallops, no murmurs, no rubs ABDOMEN: Soft, nontender. No hepatosplenomegaly, normal bowel sounds, no guarding or rigidity. EXTREMITIES: No clubbing, no edema, no cyanosis, 2+ pulses and upper and lower extremities. MUSCULOSKELETAL: Muscle strength and tone normal. SPINE: No scoliosis or deformity SKIN: No rashes CENTRAL NERVOUS SYSTEM: Alert and oriented -3. No focal deficits, tone is normal in all 4 extremities. PSYCHIATRIC: Alert and oriented -3. Appropriate affect. Intact judgment and insight. - Labs CBC & Chem 7: 07/08/20 08:48 07/08/20 08:48 Labs: Abnormal Lab Results - Last 24 Hours (Table) 07/07/20 07/07/20 07/07/20 Range/Units 09:05 16:45 20:53 Sodium (137-145) mmol/L Chloride (98-107) mmol/L Carbon Dioxide (22-30) mmol/L BUN (9-20) mg/dL Creatinine (0.66-1.25) mg/dL Glucose (74-99) mg/dL POC Glucose (mg/dL) 158 H 109 H (75-99) mg/dL Hemoglobin A1c 6.6 H (4.0-6.0) % Calcium (8.4-10.2) mg/dL 07/08/20 07/08/20 Range/Units 08:48 12:02 Sodium 133 L (137-145) mmol/L Chloride 94 L (98-107) mmol/L Carbon Dioxide 35 H (22-30) mmol/L BUN 50 H (9-20) mg/dL Creatinine 3.22 H (0.66-1.25) mg/dL Glucose 133 H (74-99) mg/dL POC Glucose (mg/dL) 108 H (75-99) mg/dL Hemoglobin A1c (4.0-6.0) % Calcium 8.3 L (8.4-10.2) mg/dL Assessment and Plan Plan: Assessment: #1. Left pleural effusion, likely related to acute exacerbation of CHF, with s ystolic dysfunction with secondary increased shortness of breath particularly on exertion #2. Acute on chronic kidney disease #3. History of recent CVA with right-sided weakness, which has improved #4. Diabetes mellitus type 2 #5. Hypertension #6. Previous adenoidectomy, appendectomy and tonsillectomy #7. Lifelong nonsmoker Plan: Continue current medical treatment, diuretics per nephrology, breathing easier today, we'll continue holding aspirin and Plavix for possibility of left-sided thoracentesis on . Continue medical treatment for now, daily electrolytes and renal profile, and acute intake and output, accurate weight I performed a history & physical examination of the patient and discussed their management with my nurse practitioner, Elizabet Irwin. I reviewed the nurse practitioner's note and agree with the documented findings and plan of care. Lung sounds are positive for diffuse wheezes throughout the lung la. The findings and the impression was discussed with the patient. I attest to the documentation by the nurse practitioner. Time with Patient: Less than 30
--- NOTE | 2020-07-08 14:42 | PN ---
PROGRESS NOTE Patient is seen for followup for acute kidney injury, mostly cardiorenal. Patient is maintained on Lasix drip for significant volume overload. His creatinine has been staying at about 3 mg/dL. Urine output seems to have dropped a little bit since VARINDER inhibitors were started. However, patient's overall volume status is much better than on admission. PHYSICAL EXAMINATION: On examination today, blood pressure was 121/69, heart rate 70 per minute, patient is afebrile. Examination of the heart S1, S2. Examination of the lungs, bilateral breath sounds are heard. Decreased breath sounds at the bases. Abdomen is soft, nontender, obese. Examination of lower extremities shows edema 2+ bilaterally. MEDICAL BILLING AND CODING SPECIALIST exam grossly intact. LABS: Show sodium 133, potassium 3.9, CO2 is 35, BUN 50, serum creatinine 3.2, hemoglobin 14.7 g/dL. ASSESSMENT: 1. Acute kidney injury mostly cardiorenal, renal function fairly stable; however, serum creatinine slightly increased. I will discontinue the Lasix drip. Continue with the VARINDER inhibitors for now. 2. Chronic kidney disease secondary to diabetic nephropathy with protein creatinine ratio suggesting about 10 g of proteinuria, maintained on VARINDER inhibitors, which was started this admission. 3. Edema, currently improving. 4. Hypertension, better controlled with initiation of VARINDER inhibitors and improvement in volume status. PLAN: DC Lasix drip, maintain Lasix 60 mg IV q.12 hours. Repeat labs in a.m. MMODL / IJN: [id number] /
[2020-07-08 17:01] LABS: Glucose,Whole Blood 135 mg/dL (75-99)
--- NOTE | 2020-07-08 21:05 | PN ---
PROGRESS NOTE DATE OF SERVICE: 07/08/2009 This is a 55-year-old gentleman admitted with CHF exacerbation slated to have a pleural effusion tapped on by Dr. Jeronimo, the Lasix drip has been stopped at this time. Chest x-ray showed persistent pleural effusion, left side. No fever. No cough. PHYSICAL EXAMINATION: Alert and oriented times three. Pulse is 61. Blood pressure 145/70, respiration 18, temperature 97.9, pulse ox 98% on room air. HEENT: Conjunctivae normal. NECK: No JVD. CARDIOVASCULAR: S1, S2 muffled. RESPIRATION: Breath sounds diminished in the bases. A few scattered rhonchi. ABDOMEN: Soft. Nontender. NERVOUS SYSTEM: No focal deficits. LAB: CBC within normal limits. Sodium 133, creatinine 3.22. ASSESSMENT: 1. Congestive heart failure acute exacerbation with acute on chronic systolic dysfunction, ejection fraction 40-50 percent, status post IV Lasix drip. 2. Acute on chronic renal failure, possibly cardiorenal syndrome. 3. Possible chronic kidney stage 3 baseline. 4. Left pleural effusion, possibly secondary to congestive heart failure acute exacerbation which is persistent. 5. Morbid obesity. 6. Right hemiparesis from previous stroke. 7. Diabetes mellitus type 2. 8. Hypertension. 9. Hyponatremia, mild. 10.Mild hypoalbuminemia with mild protein calorie malnutrition. 11.Proteinuria. 12.History of appendectomy. 13.History of adenoidectomy. 14.Obesity, body mass index of 39.6. 15.FULL CODE. RECOMMENDATIONS AND DISCUSSION: Continue current management. Symptomatic treatment. Patient is titrated off to Lasix 60 IV b.i.d. by Nephrology. We will continue to monitor. Closely follow with Dr. Jeronimo. Stop antiplatelet agents. Thoracocenteses. Guarded prognosis. Further recommendations to follow. MMODL / IJN: [id number] /
[2020-07-08 21:15] LABS: Glucose,Whole Blood 114 mg/dL (75-99)
[2020-07-08] MEDS: FUROSEMIDE 10 MG/ML 10 ML VIAL IV SCH (21:43)
[2020-07-08] MEDS: MELATONIN 3 MG TABLET PO SCH (21:49)
[2020-07-09] MEDS: HEPARIN SODIUM,PORCINE 5,000 UNIT/ML 1 ML VIAL SQ SCH ×2 (01:00→08:28)
[2020-07-09 06:31] LABS: Glucose,Whole Blood 101 mg/dL (75-99)
[2020-07-09] MEDS: INSULIN ASPART (NovoLOG) 100 UNIT/ML VIAL SQ SCH ×4 (06:34→21:34)
[2020-07-09] MEDS: carvediloL 12.5 MG TAB PO SCH ×2 (06:40→17:00)
[2020-07-09 08:06] LABS: Basophils # (A) 0.1 k/uL (0-0.2); Basophils % (A) 1 %; Eosinophils # (A) 0.1 k/uL (0-0.7); Eosinophils % (A) 2 %; HCT 45.5 % (39.0-53.0); HGB 14.4 gm/dL (13.0-17.5); Lymphocytes # (A) 1.7 k/uL (1.0-4.8); Lymphocytes % (A) 26 %; MCHC 31.6 g/dL (31.0-37.0); MCV 88.6 fL (80.0-100.0); Monocytes # (A) 0.5 k/uL (0-1.0); Monocytes % (A) 7 %; Neutrophils # (A) 4.1 k/uL (1.3-7.7); Neutrophils % (A) 62 %; Platelet Count 233 k/uL (150-450); RBC 5.13 m/uL (4.30-5.90); WBC 6.6 k/uL (3.8-10.6)
[2020-07-09 08:13] LABS: Calcium 8.3 mg/dL (8.4-10.2); Potassium 3.7 mmol/L (3.5-5.1)
[2020-07-09] MEDS: hydrALAZINE HCL 25 MG TAB PO SCH ×3 (08:28→21:35)
[2020-07-09] MEDS: lisinopriL 5 MG TAB PO SCH (08:28)
[2020-07-09] MEDS: FUROSEMIDE 10 MG/ML 10 ML VIAL IV SCH (08:28)
[2020-07-09] MEDS: ISOSORBIDE MONONITRATE ER 30 MG TAB.ER.24H PO SCH (08:28)
[2020-07-09] MEDS: ATORVASTATIN 20 MG TAB PO SCH (08:28)
--- NOTE | 2020-07-09 10:56 | P.PN ---
Subjective Progress Note Date: 07/09/20 This is a pleasant 55-year-old gentleman with documented history of diabetes, hypertension, hyperlipidemia, patient also has history of a CVA in October 2018, he underwent coiling of the brain also some stenting procedure of which exact details he is unclear. This was performed in [facility] in October 2018. According to the patient he's been progressively more and more short of breath over the past one month or more, he also had noticed significant increase in peripheral edema, up into his thigh area. Positive PND and orthopnea. Chest x- ray on presentation here showed a questionable left lower lobe pneumonia with left pleural effusion EKG showed normal sinus rhythm with first-degree AV block, right bundle branch block pattern, left anterior fascicular block inferior Q waves and some anterior ST depression noted. Blood pressure 178/80, heart rate in the 70s, 98% on 3 L of oxygen. White blood cell count 7.1, hemoglobin 15.9, platelet count 2:15. D-dimer 0.7. Sodium 134, potassium 4.3, chloride 105, CO2 27, BUN 33, creatinine 2.6. Troponin 0.03, 0.03, 0.045. BNP level XXVII,DC. Patient's home medications included Procardia, Plavix, losartan, and Lipitor. Here he has been placed on aspirin 325 mg daily, subcu heparin, Plavix, Lipitor, Lasix 40 IV twice a day, Cozaar 100 mg daily, Procardia 60 mg daily and Nitropaste. We will request an echocardiogram with Doppler study be performed, decrease the aspirin to 81 mg daily, discontinue the IV push Lasix and start the patient on a Lasix drip. Hold the Cozaar, check daily BUN and creatinine, initiate the patient on a beta tha. 07/04/2020 Patient was seen and examined this morning, sitting up at the chair bedside. Overall he feels significantly better. Diuresed well through the night last night. Blood pressure 130/60 with a heart rate in the 60s, 95% on room air. Sodium 134, potassium 3.8, BUN 35, creatinine 2.8. Magnesium 1.9. Echocardiogram with Doppler study was performed which revealed an ejection fraction of 45-50%. Inferior lateral hypokinesia noted, mild to moderate tricuspid regurg with moderate pulmonary hypertension. Ultrasound of the bladder was normal, no evidence of renal mass or obstruction. We will continue the patient on current dose of Lasix drip, along with his other medications. Continue to monitor the intake and output along with daily weights and daily lytes BUN and creatinine. 07/05/2020 Patient seen and examined this morning, overall doing significantly better. He continues to diurese well, his weight is down 4 kg from yesterday. Blood pressure 146/76 with a heart rate in the 60s, 95% on room air. White blood cell count 5.9, hemoglobin 15.5, platelet count 235. Sodium 132, potassium 3.8, BUN 44, creatinine 3.0. An ultrasound of the chest was performed yesterday which showed a left sided pleural effusion measuring 11.3 cm. 07/09/2020 Patient seen and examined this morning, he states that he did not sleep well through the night last night, had an episode of nausea and vomiting after his dinner and overall just did not feel well. He continues today to feel short of breath. Patient has been seen by pulmonary, with the plan on possibly doing a left-sided thoracentesis tomorrow. His aspirin and Plavix continue to be on hold. Blood pressure 114/60 with a heart rate in the 60s, 96% on room air. White blood cell count 6.6, hemoglobin 14.4, platelet count 233. Sodium 133, potassium 3.7, BUN 54 and creatinine 3.5. Objective - Vital Signs Vital signs: Vital Signs Temp 98.1 F 07/09/20 08:15 Pulse 67 07/09/20 08:15 Resp 18 07/09/20 08:15 BP 114/57 07/09/20 08:15 Pulse Ox 96 07/09/20 08:15 Intake & Output 07/08/20 07/09/20 07/09/20 18:59 06:59 18:59 Intake Total 1720.167 600 236 Output Total 225 600 Balance 1495.167 0 236 Weight 113.4 kg Intake: IV 20 Invasive Line 2 20 Intake, IV Titration 20.167 Amount Furosemide 100 mg In 20.167 Sodium Chloride 0.9% 90 ml @ 10 MG/HR 10 mls/hr IV .Q10H [facility] Rx#: [id number] Oral 1680 600 236 Output: Urine 225 600 Other: Voiding Method Urinal Urinal - Exam PHYSICAL EXAMINATION: GENERAL: 55-year-old gentleman in no acute distress at the time of my examinat ion HEENT: Head is atraumatic, normocephalic. Pupils equal, round. Sclera anicteric. Conjunctiva are clear. Mucous membranes of the mouth are moist. Neck is supple. There is elevated jugular venous pressure up to the angle of the jaw. No carotid bruit is heard. HEART EXAMINATION: Heart S1 S2 1 systolic murmur is heard CHEST EXAMINATION: Reveal diminished air entry bilaterally , left greater than the right, with rales heard to the bases bilaterally ABDOMEN: Soft, obese, nontender. Bowel sounds are heard. No organomegaly noted. EXTREMITIES: 2+ peripheral pulses with 1-2+ evidence of peripheral edema. NEUROLOGIC patient is awake, alert and oriented 3. - Labs CBC & Chem 7: 07/09/20 07:08 07/09/20 07:08 Labs: Abnormal Lab Results - Last 24 Hours (Table) 07/08/20 07/08/20 07/08/20 Range/Units 12:02 17:00 21:14 Sodium (137-145) mmol/L Chloride (98-107) mmol/L BUN (9-20) mg/dL Creatinine (0.66-1.25) mg/dL POC Glucose (mg/dL) 108 H 135 H 114 H (75-99) mg/dL Calcium (8.4-10.2) mg/dL 07/09/20 07/09/20 Range/Units 06:31 07:08 Sodium 133 L (137-145) mmol/L Chloride 97 L (98-107) mmol/L BUN 54 H (9-20) mg/dL Creatinine 3.50 H (0.66-1.25) mg/dL POC Glucose (mg/dL) 101 H (75-99) mg/dL Calcium 8.3 L (8.4-10.2) mg/dL Assessment and Plan Plan: Assessment and plan #1 congestive heart failure, acute, LV function unknown #2 hypertension, accelerated #3 acute renal failure #4 diabetes #5 hyperlipidemia #6 history of CVA with mild residual weakness in the right arm, October 2018, patient did undergo coiling at that time questionable stenting as well #7 family history of premature coronary artery disease in his mom #8 mildly abnormal troponins, could be secondary to abnormal renal function, patient will however require workup for underlying coronary artery disease once his heart failure resolves. Plan We will continue current dose of IV Lasix , continue to monitor the intake and output along with daily weights and daily lytes BUN and creatinine. Tentatively the patient is scheduled for a left-sided thoracentesis tomorrow. DNP note has been reviewed, I agree with a documented findings and plan of care. Patient was seen and examined.
[2020-07-09 11:45] LABS: Glucose,Whole Blood 160 mg/dL (75-99)
--- NOTE | 2020-07-09 15:42 | PN ---
PROGRESS NOTE Patient is seen for followup for acute kidney injury. Patient states he did not sleep well. He had an upset stomach. However, he was able to tolerate some breakfast. No significant chest pains. He has had good urine output. A 24 hour urine output: however, noted to be 1.4 L. Lasix drip was discontinued yesterday. Currently maintained on 60 mg IV q.12 hours of Lasix. Volume status has improved significantly. Serum creatinine; however, has been trending upwards. PHYSICAL EXAMINATION: On examination today, blood pressure is 114/57, heart rate 67 per minute, patient is afebrile. Examination of the heart S1, S2. Examination of the lungs, decreased breath sounds at bases. Abdomen is soft, obese, nontender. Examination of the lower extremities shows 1+ edema bilaterally. RNP exam grossly intact. LABS: Show sodium 133, potassium 3.7, chloride 97, CO2 is 30, BUN 54, serum creatinine 3.5, hemoglobin 14.4 g/dL. ASSESSMENT: 1. Acute kidney injury mostly cardiorenal, serum creatinine slightly worsened over the last 2-3 days associated with recent diuresis as well as initiation of VARINDER inhibitors. I will switch to p.o. Lasix today. 2. Chronic kidney disease secondary to diabetic nephropathy with roughly 10 g of proteinuria, started on VARINDER inhibitors this admission. 3. Edema, significantly improved. 4. CHF exacerbation, acute on top of chronic, mostly diastolic. 5. Hypertension, better controlled with improvement in volume status. 6. Cardiomyopathy, ejection fraction 45% to 50%. PLAN: Switch to p.o. Lasix, decrease lisinopril to about 2.5 mg. Repeat labs in a.m. MMODL / IJN: [id number] /
[2020-07-09] MEDS: FUROSEMIDE 40 MG TAB PO SCH (17:00)
[2020-07-09 17:02] LABS: Glucose,Whole Blood 114 mg/dL (75-99)
--- NOTE | 2020-07-09 17:18 | PN ---
PROGRESS NOTE This is a 55-year-old gentleman who is seen in followup. He has a left pleural effusion. We are going to do a left-sided thoracentesis tomorrow. We held off doing initially because he was on heparin, aspirin and Plavix. His pleural effusion is likely secondary to CHF. In addition, he has a history of acute on chronic kidney disease, recent CVA with right-sided weakness, diabetes mellitus, hypertension, previous adenoidectomy, appendectomy and tonsillectomy, and the patient is a lifelong nonsmoker. Clinically, he is doing well. He is not particularly short of breath. The ultrasound and chest x-rays were reviewed. Current vital signs are reviewed. Temperature is 98.1, heart rate 61, respiratory rate 17, blood pressure 144/68 mean 86 and room-air saturation 96%. Appears in no acute distress. HEENT: Examination is grossly unremarkable. Neck is supple, full range of motion. No adenopathy. Neck veins are flat. CARDIOVASCULAR: Examination reveals regular rhythm and rate. S1, S2 normal. No S3, S4, or murmur. LUNGS: Reveal diminished breath sounds at the left base. No crackles or wheezes. ABDOMEN: Soft, bowel sounds are heard. EXTREMITIES: Intact. No cyanosis, clubbing, or significant edema. SKIN: Without rash. NEUROLOGIC: Examination is nonfocal. CURRENT LABORATORY DATA: Includes a white count 6.6, hemoglobin 14.4, hematocrit 45.5, platelet count is 233,000. Sodium 133, potassium 3.7, chloride 97, CO2 is 30, anion gap is 6, BUN and creatinine were 54 and 3.50. Microbiology is negative, pending. The most recent chest x-ray was on July 08, which shows some persistent left lower lobe atelectasis and pneumonia with associated effusion. Medications are reviewed. ASSESSMENT: 1. Left-sided pleural effusion, secondary to CHF, with anticipated thoracentesis tomorrow. 2. History of systolic dysfunction. 3. Acute on chronic kidney disease. 4. History of recent cerebrovascular accident with right-sided weakness, improved. 5. Type 2 diabetes mellitus. 6. Essential hypertension. 7. Prior history of adenoidectomy, appendectomy, and tonsillectomy. 8. Lifelong nonsmoker. PLAN: The patient is doing reasonably well. I will follow him along. The patient will have a thoracentesis tomorrow, if all is well. The ultrasound demonstrated a relatively large left-sided pleural effusion. Chest x-ray has been reviewed. We have discussed the case with the patient. No additional recommendations made. Will continue to follow. MMODL / IJN: [id number] /
[2020-07-09 20:44] LABS: Glucose,Whole Blood 165 mg/dL (75-99)
[2020-07-09] MEDS: MELATONIN 3 MG TABLET PO SCH (21:37)
--- NOTE | 2020-07-09 22:10 | PN ---
PROGRESS NOTE DATE OF SERVICE: 07/09/2020 This 55-year-old gentleman who was admitted with CHF, acute exacerbation, with acute on chronic systolic dysfunction had ejection fraction 40% to 50%. Patient is on Lasix drip. Patient also had a left pleural effusion. Dr. Jeronimo is planning possible thoracocentesis tomorrow. No chest pain. No palpitations. No fever. PHYSICAL EXAMINATION: Alert and oriented x3. Pulse 74, blood pressure 159/74, respiration 22, temperature 97.9, pulse ox 96% on room air. HEENT: Conjunctivae normal. NECK: No jugular venous distention. CARDIOVASCULAR SYSTEM: S1, S2 muffled. RESPIRATORY SYSTEM: Breath sounds diminished at the bases. A few scattered rhonchi. ABDOMEN: Soft, non-tender. NERVOUS SYSTEM: No focal deficit. LABS: Creatinine 3.50 and glucose 160. ASSESSMENT: 1. Congestive heart failure with acute exacerbation with acute on chronic systolic dysfunction, ejection fraction 40% to 50%, status post IV Lasix drip. 2. Acute on chronic renal failure, possibly cardiorenal syndrome. 3. Possible chronic kidney disease, stage 3 disease at baseline. 4. Left pleural effusion possibly secondary to congestive heart failure. 5. Morbid obesity. 6. Right hemiparesis from previous stroke. 7. Diabetes mellitus, type 2. 8. Hypertension. 9. Hyponatremia, mild. 10.Mild hypoalbuminemia with mild protein-calorie malnutrition. 11.Proteinuria. 12.History of appendectomy. 13.History of adenoidectomy. 14.Obesity with body mass index of 39.6. 15.FULL CODE. RECOMMENDATIONS AND DISCUSSION: I recommend to continue current medications, continue with the monitoring, symptomatic treatment. Continue the diuretics. Monitor renal functions closely. Thoracocentesis by Dr. Jeronimo. Prognosis guarded. Further recommendations to follow. MMODL / IJN: [id number] /
[2020-07-10 06:30] LABS: Glucose,Whole Blood 95 mg/dL (75-99)
[2020-07-10] MEDS: INSULIN ASPART (NovoLOG) 100 UNIT/ML VIAL SQ SCH ×4 (06:38→20:57)
[2020-07-10] MEDS: carvediloL 12.5 MG TAB PO SCH ×2 (07:00→17:49)
[2020-07-10] MEDS: FUROSEMIDE 40 MG TAB PO SCH ×2 (09:12→15:40)
[2020-07-10] MEDS: ATORVASTATIN 20 MG TAB PO SCH (09:12)
[2020-07-10] MEDS: hydrALAZINE HCL 25 MG TAB PO SCH ×3 (09:12→20:57)
[2020-07-10] MEDS: ISOSORBIDE MONONITRATE ER 30 MG TAB.ER.24H PO SCH (09:12)
[2020-07-10 09:40] LABS: Calcium 8.4 mg/dL (8.4-10.2); Potassium 3.6 mmol/L (3.5-5.1)
[2020-07-10 11:46] VITALS: BMI 35.9
[2020-07-10 12:21] LABS: Glucose,Whole Blood 116 mg/dL (75-99)
--- NOTE | 2020-07-10 12:34 | XR ---
EXAMINATION TYPE: XR chest 1V portable DATE OF EXAM: 07/10/2020 COMPARISON: 07/08/2020 INDICATION: Status post left thoracentesis TECHNIQUE: Single frontal view of the chest is obtained. FINDINGS: The heart size is mildly prominent. The pulmonary vasculature is prominent. Lungs appear essentially clear. Very minimal residual left pleural effusion may be present. No pneumo thorax is evident. IMPRESSION: 1. No pneumothorax postthoracentesis.
--- NOTE | 2020-07-10 14:11 | P.PN ---
Subjective Progress Note Date: 07/10/20 Principal diagnosis: Acute exacerbation of systolic congestive heart failure with left pleural effusion The patient is seen today on 07/10/2020 in follow-up in the selective care unit. He is currently sitting up at the bedside. Awake and alert in no acute distress. He is maintaining O2 saturation in the 90s on room air. He's been afebrile. Sodium 133. Potassium 3.6. Creatinine 3.67. Ultrasound of the left chest did reveal a 11.3 cm pocket. He did undergo a left-sided thoracentesis by Dr. Jeronimo today with 1100 mL of cloudy yellow fluid removed removed. Follow-up chest x-ray revealed no evidence of pneumothorax. Fluid sent for analysis and cytology. Objective - Vital Signs Vital signs: Vital Signs Temp 98.6 F 07/10/20 12:34 Pulse 69 07/10/20 12:34 Resp 17 07/10/20 12:34 BP 180/86 07/10/20 12:34 Pulse Ox 94 L 07/10/20 12:34 Intake & Output 07/09/20 07/10/20 07/10/20 18:59 06:59 18:59 Intake Total 596 690 Output Total 150 Balance 596 -150 690 Weight 113.5 kg 113.5 kg Intake: Oral 596 690 Output: Urine 150 Other: Voiding Method Urinal # Voids 1 - Exam GENERAL EXAM: Alert, active, pleasant 55-year-old gentleman, on room air, comfortable in no apparent distress. HEAD: Normocephalic. EYES: Normal reaction of pupils, equal size. NOSE: Clear with pink turbinates. THROAT: No erythema or exudates. NECK: No masses, no JVD. CHEST: No chest wall deformity. LUNGS: Equal air entry with crackles in the left base, diminished, dullness. CVS: S1 and S2 normal with no audible murmur, regular rhythm. ABDOMEN: No hepatosplenomegaly, normal bowel sounds, no guarding or rigidity. SPINE: No scoliosis or deformity SKIN: No rashes CENTRAL NERVOUS SYSTEM: No focal deficits, tone is normal in all 4 extremities. EXTREMITIES: There is no peripheral edema. No clubbing, no cyanosis. Perip heral pulses are intact. - Labs CBC & Chem 7: 07/09/20 07:08 07/10/20 08:41 Labs: Abnormal Lab Results - Last 24 Hours (Table) 07/09/20 07/09/20 07/10/20 Range/Units 17:00 20:42 08:41 Sodium 133 L (137-145) mmol/L Chloride 96 L (98-107) mmol/L Carbon Dioxide 34 H (22-30) mmol/L BUN 60 H (9-20) mg/dL Creatinine 3.67 H (0.66-1.25) mg/dL Glucose 131 H (74-99) mg/dL POC Glucose (mg/dL) 114 H 165 H (75-99) mg/dL 07/10/20 Range/Units 12:20 Sodium (137-145) mmol/L Chloride (98-107) mmol/L Carbon Dioxide (22-30) mmol/L BUN (9-20) mg/dL Creatinine (0.66-1.25) mg/dL Glucose (74-99) mg/dL POC Glucose (mg/dL) 116 H (75-99) mg/dL Assessment and Plan Assessment: #1. Left pleural effusion, likely related to acute exacerbation of CHF, with systolic dysfunction with secondary increased shortness of breath particularly on exertion #2. Acute on chronic kidney disease #3. History of recent CVA with right-sided weakness, which has improved #4. Diabetes mellitus type 2 #5. Hypertension #6. Previous adenoidectomy, appendectomy and tonsillectomy #7. Lifelong nonsmoker Plan: The patient was seen and evaluated by Dr. Jeronimo He did go ahead and perform a left-sided thoracentesis with 1100 ML's cloudy yellow fluid returned Fluid sent for analysis and cytology Follow-up chest x-ray revealed no evidence of pneumothorax Okay to resume aspirin and Plavix Cleared for discharge once cleared by cardiology We'll continue to follow I, the cosigning physician, performed a history & physical examination of the patient. Lungs sounds with crackles in the left lung base, diminished. Maintaining good O2 saturations in the 90s on room air. I discussed the assessm ent and plan of care with my nurse practitioner, Rohini Clfiford. I attest to the above note as dictated by her.
[2020-07-10] MEDS: CLOPIDOGREL 75 MG TAB PO SCH (15:40)
[2020-07-10 16:49] LABS: Glucose,Whole Blood 163 mg/dL (75-99)
--- NOTE | 2020-07-10 17:03 | PN ---
PROGRESS NOTE Patient is seen for follow up for acute kidney injury on top of chronic kidney disease. Patient's serum creatinine continues to increase. It is up to 3.6 today. The VARINDER inhibitors were started about 3 days ago. Patient was also on Lasix drip which is now decreased to Lasix 40 mg p.o. b.i.d. Volume status has improved significantly and edema is much improved than on admission. The patient is scheduled for thoracentesis today. 24 hour urine output documented at 825 mL. PHYSICAL EXAMINATION: On examination today, blood pressure 151/74, heart rate 70 per minute, he is afebrile. Examination of the heart S1, S2. Examination of lungs, decreased breath sounds at bases. Abdomen is soft, nontender. Examination of lower extremities shows 1+ edema bilaterally. Chronic skin changes noted. [employer] exam grossly intact. LAB: Show sodium 133, potassium 3.6, chloride 96, CO2 is 34, BUN 60, creatinine 3.67. ASSESSMENT: 1. Acute kidney injury, mostly cardiorenal. The dose of VARINDER inhibitors were decreased yesterday to 2.5. The Lasix was also decreased. I will continue with the current dose of p.o. Lasix. There are no other nephrotoxic agents on board. The VARINEDR inhibitors were started mainly because of underlying 10 g of proteinuria and chronic kidney disease. 2. Chronic kidney disease secondary to diabetic nephropathy. Baseline creatinine not available. Lowest creatinine 2.6 this admission. 3. Congestive heart failure exacerbation, acute on top of chronic, mostly systolic. 4. Cardiomyopathy, ejection fraction 45% to 50%. 5. Pleural effusion, left-sided, scheduled for thoracentesis today. PLAN: Continue with oral Lasix. Continue minimal dose of VARINDER inhibitors. Repeat labs in a.m. Continue to avoid any other nephrotoxic medications. MMODL / IJN: [id number] /
[2020-07-10] MEDS: MELATONIN 3 MG TABLET PO SCH (20:56)
[2020-07-10 20:57] LABS: Appearance,BF Clear; Nucleated Cells, Body Fluid 110 /uL; RBC, Body Fluid 205 /uL
[2020-07-10 20:58] LABS: Glucose,Whole Blood 181 mg/dL (75-99)
[2020-07-10 21:05] LABS: Mononuclear WBC,Body Fluid 94 %; Polynuclear WBC,Body Fluid 6 %; Total Cells Counted,Body Fluid 100
--- NOTE | 2020-07-10 22:04 | P.PN ---
Progress Note - Text Progress Note Date: 07/10/20 Chief Complaint: Shortness of breath History of presenting complaint: This is a pleasant 55-year-old patient of Dr. Fuentes. Patient is just 2 teenage sons. Patient with baseline right-sided weakness from prior stroke does use a cane. Also has obstructive sleep apnea. Also chronic kidney disease. Patient for noticed for 2 months has been increase in shortness of breath. Increasing edema. Sometimes get a bit lightheaded. Also notices that recently been sitting up upright sleeping on no recliner. No fever no chills. No cough. No chest pain or palpitation. Patient's sister the bedside. Hospital course: Admitted with acute on chronic congestive heart exacerbation. [place] to have underlying chronic kidney disease. Started on Lasix drip. Patient made good urine output. Today-and left-sided thoracentesis carried out today. About 1100 mL of juan c- colored fluid was removed. Breathing better. Eating well. Edema was gone on. Son at bedside. Review of systems: Was done for constitutional, cardiovascular, GI, pulmonary. relevant finding as above Active Medications Aspirin (Aspirin 81 Mg) 81 mg PO DAILY [facility] Atorvastatin Calcium (Atorvastatin 20 Mg Tab) 20 mg PO DAILY [facility] Last Admin: 07/10/20 09:12 Dose: 20 mg Documented by: Carvedilol (Carvedilol 12.5 Mg Tab) 12.5 mg PO BID-W/MEALS [facility] Last Admin: 07/10/20 17:49 Dose: 12.5 mg Documented by: Clopidogrel Bisulfate (Clopidogrel 75 Mg Tab) 75 mg PO DAILY [facility] Last Admin: 07/10/20 15:40 Dose: 75 mg Documented by: Furosemide (Furosemide 40 Mg Tab) 40 mg PO BID@0900,1600 [facility] Last Admin: 07/10/20 15:40 Dose: 40 mg Documented by: Hydralazine HCl (Hydralazine Hcl 25 Mg Tab) 75 mg PO TID [facility] Last Admin: 07/10/20 20:57 Dose: 75 mg Documented by: Insulin Aspart (Insulin Aspart (Novolog) 100 Unit/Ml Vial) 0 unit SQ [facility]; Protocol Last Admin: 07/10/20 20:57 Dose: 3 unit Documented by: Isosorbide Mononitrate (Isosorbide Mononitrate Er 30 Mg Tab.Er.24h) 30 mg PO DAILY [facility] Last Admin: 07/10/20 09:12 Dose: 30 mg Documented by: Lisinopril (Lisinopril 2.5 Mg Tab) 2.5 mg PO DAILY [facility] Last Admin: 07/10/20 09:12 Dose: 2.5 mg Documented by: Melatonin (Melatonin 3 Mg Tablet) 3 mg PO HS [facility] Last Admin: 07/10/20 20:56 Dose: 3 mg Documented by: Sodium Chloride (Sodium Chloride 0.9% Flush 10 Ml Syringe) 10 ml IV BID [facility] Last Admin: 07/10/20 20:57 Dose: 10 ml Documented by: Physical examination: VITAL SIGNS: 98.3, 68, 16, 144/68, 95% room air GENERAL: Sitting at the edge of the bed, eating EYES: Pupils equal. Conjunctiva normal. NECK: JVD possibly replaced masses not palpable. HEART: First and second heart sounds are normal; edema decreased LUNGS: Respiratory rate normal; decreased breath sounds at bases. ABDOMEN: Soft, nontender, liver spleen not palpable, no masses palpable. PSYCH: Alert and oriented x3; mood and affect normal. INVESTIGATIONS, reviewed in the clinical context: Potassium 3.6 creatinine 3.67 Admission testing White count 7.1 hemoglobin 15.9 platelets 215 potassium 4.3 bun 33 creatinine 2.61 Troponin I 0.033, 0.032, 0.045 Albumin 2.8 UA positive for protein 3+ glucose 2+ 2-D echocardiogram EF 45-50% some tricuspid regurgitation and some pulmonary hypertension inferolateral hypokinesis of the wall Ultrasound the kidneys and bladder-mostly unremarkable EKG tracing personally reviewed by me-normal sinus rhythm, right bundle-branch block subtle ST segment depression Chest x-ray film personally reviewed by me-pulmonary edema, cardiomegaly Assessment: -Acute on chronic congestive heart failure exacerbation from diastolic dysfunction EF 45-50%-is wondering well to IV Lasix drip. -Large left pleural effusion from CHF, status post thoracentesis, 1100 mL removed -Morbid obesity BMI 40.2 -Right hemiparesis from prior stroke -Diabetes mellitus type 2 -Essential hypertension -Chronic kidney disease stage III from diabetic nephropathy Plan: Patient doing much better. On oral Lasix. Encouraged tablet. Hopefully discharge in next 24 hours.
--- NOTE | 2020-07-11 04:28 | PCN ---
PROCEDURE NOTE PULMONARY/CRITICAL CARE PROCEDURE NOTE: PROCEDURE: Left-sided thoracentesis. PREOPERATIVE DIAGNOSIS: Left pleural effusion. POSTOPERATIVE DIAGNOSIS: Left pleural effusion. OPERATORS: Dr. Jeronimo and Dr. Clifford Indication Pleural effusion. A time-out was completed verifying correct patient, procedure, site, positioning , and implant (s) or special equipment if applicable. Ultrasound guidance was used and appropriate fluid pocket was identified and marked. Patient was positioned, prepped and draped in usual sterile fashion. Lidocaine was used to anesthetize the area. A Thoracentesis catheter was introduced into the pleural space and fluid was removed. Blood loss was none. A chest x-ray was ordered to evaluate for pneumothorax. Total Fluid Removed: 1100 mL. Color of Fluid: Yellow. Fluid was sent for appropriate laboratory tests. Patient tolerated the procedure well and there were no complications. 1100 mL of fluid was removed from the left pleural space. The patient tolerated the procedure well. The left posterior chest was marked by ultrasound. The fluid was yellow in color and relatively thin. The fluid will be sent for analysis. This will include chemistry, cytology and also microbiology. The patient tolerated procedure well. Chest x-ray was ordered to rule out pneumothorax. Again the patient tolerated the procedure well without any difficulty whatsoever. MMODL / IJN: [id number] /
[2020-07-11 05:52] LABS: Glucose, BF Source Pleural Fluid; Glucose, Body Fluid 124 mg/dL; LDH, Body Fluid Source Pleural Fluid
[2020-07-11 06:13] LABS: Glucose,Whole Blood 84 mg/dL (75-99)
[2020-07-11] MEDS: INSULIN ASPART (NovoLOG) 100 UNIT/ML VIAL SQ SCH ×2 (06:38→12:19)
[2020-07-11] MEDS: carvediloL 12.5 MG TAB PO SCH (06:38)
[2020-07-11] MEDS: FUROSEMIDE 40 MG TAB PO SCH (08:17)
[2020-07-11] MEDS: CLOPIDOGREL 75 MG TAB PO SCH (08:17)
[2020-07-11] MEDS: hydrALAZINE HCL 25 MG TAB PO SCH (08:17)
[2020-07-11] MEDS: ISOSORBIDE MONONITRATE ER 30 MG TAB.ER.24H PO SCH (08:18)
[2020-07-11] MEDS: ATORVASTATIN 20 MG TAB PO SCH (08:18)
[2020-07-11 08:31] VITALS: PULSE 60
[2020-07-11] MEDS ORDERED: ASPIRIN 81 MG PO SCH (09:00)
[2020-07-11 11:22] VITALS: BP 150/79; RESP 23; TEMP 98.2
--- NOTE | 2020-07-11 11:43 | P.PN ---
Subjective Progress Note Date: 07/11/20 This is a pleasant 55-year-old gentleman with documented history of diabetes, hypertension, hyperlipidemia, patient also has history of a CVA in October 2018, he underwent coiling of the brain also some stenting procedure of which exact details he is unclear. This was performed in [facility] in October 2018. According to the patient he's been progressively more and more short of breath over the past one month or more, he also had noticed significant increase in peripheral edema, up into his thigh area. Positive PND and orthopnea. Chest x- ray on presentation here showed a questionable left lower lobe pneumonia with left pleural effusion EKG showed normal sinus rhythm with first-degree AV block, right bundle branch block pattern, left anterior fascicular block inferior Q waves and some anterior ST depression noted. Blood pressure 178/80, heart rate in the 70s, 98% on 3 L of oxygen. White blood cell count 7.1, hemoglobin 15.9, platelet count 2:15. D-dimer 0.7. Sodium 134, potassium 4.3, chloride 105, CO2 27, BUN 33, creatinine 2.6. Troponin 0.03, 0.03, 0.045. BNP level XXVII,DC. Patient's home medications included Procardia, Plavix, losartan, and Lipitor. Here he has been placed on aspirin 325 mg daily, subcu heparin, Plavix, Lipitor, Lasix 40 IV twice a day, Cozaar 100 mg daily, Procardia 60 mg daily and Nitropaste. We will request an echocardiogram with Doppler study be performed, decrease the aspirin to 81 mg daily, discontinue the IV push Lasix and start the patient on a Lasix drip. Hold the Cozaar, check daily BUN and creatinine, initiate the patient on a beta tha. 07/04/2020 Patient was seen and examined this morning, sitting up at the chair bedside. Overall he feels significantly better. Diuresed well through the night last night. Blood pressure 130/60 with a heart rate in the 60s, 95% on room air. Sodium 134, potassium 3.8, BUN 35, creatinine 2.8. Magnesium 1.9. Echocardiogram with Doppler study was performed which revealed an ejection fraction of 45-50%. Inferior lateral hypokinesia noted, mild to moderate tricuspid regurg with moderate pulmonary hypertension. Ultrasound of the bladder was normal, no evidence of renal mass or obstruction. We will continue the patient on current dose of Lasix drip, along with his other medications. Continue to monitor the intake and output along with daily weights and daily lytes BUN and creatinine. 07/05/2020 Patient seen and examined this morning, overall doing significantly better. He continues to diurese well, his weight is down 4 kg from yesterday. Blood pressure 146/76 with a heart rate in the 60s, 95% on room air. White blood cell count 5.9, hemoglobin 15.5, platelet count 235. Sodium 132, potassium 3.8, BUN 44, creatinine 3.0. An ultrasound of the chest was performed yesterday which showed a left sided pleural effusion measuring 11.3 cm. 07/09/2020 Patient seen and examined this morning, he states that he did not sleep well through the night last night, had an episode of nausea and vomiting after his dinner and overall just did not feel well. He continues today to feel short of breath. Patient has been seen by pulmonary, with the plan on possibly doing a left-sided thoracentesis tomorrow. His aspirin and Plavix continue to be on hold. Blood pressure 114/60 with a heart rate in the 60s, 96% on room air. White blood cell count 6.6, hemoglobin 14.4, platelet count 233. Sodium 133, potassium 3.7, BUN 54 and creatinine 3.5. 07/11/2020 Patient was seen and examined this morning, he had a good night last night. Breathing is stable this morning. The patient underwent a left-sided thoracentesis yesterday, total fluid removed 1100 mL. Blood pressure 150/70 with a heart rate in the 60s, 96% on room air. BMP remains pending. Objective - Vital Signs Vital signs: Vital Signs Temp 98.2 F 07/11/20 11:20 Pulse 60 07/11/20 11:20 Resp 23 07/11/20 11:20 BP 150/79 07/11/20 11:20 Pulse Ox 96 07/11/20 11:20 Intake & Output 07/10/20 07/11/20 07/11/20 18:59 06:59 18:59 Intake Total 930 540 240 Output Total 400 Balance 530 540 240 Weight 113.5 kg 112.4 kg Intake: Oral 930 240 Other 540 Output: Urine 400 Other: Voiding Method Urinal Urinal Urinal - Exam PHYSICAL EXAMINATION: GENERAL: 55-year-old gentleman in no acute distress at the time of my examination HEENT: Head is atraumatic, normocephalic. Pupils equal, round. Sclera anicteric. Conjunctiva are clear. Mucous membranes of the mouth are moist. Neck is supple. There is elevated jugular venous pressure up to the angle of the jaw. No carotid bruit is heard. HEART EXAMINATION: Heart S1 S2 1 systolic murmur is heard CHEST EXAMINATION: Reveal improvement in air entry bilaterally ABDOMEN: Soft, obese, nontender. Bowel sounds are heard. No organomegaly noted. EXTREMITIES: 2+ peripheral pulses with trace evidence of peripheral edema. NEUROLOGIC patient is awake, alert and oriented 3. - Labs CBC & Chem 7: 07/09/20 07:08 07/10/20 08:41 Labs: Abnormal Lab Results - Last 24 Hours (Table) 07/10/20 07/10/20 07/10/20 Range/Units 12:20 16:44 20:56 POC Glucose (mg/dL) 116 H 163 H 181 H (75-99) mg/dL Microbiology - Last 24 Hours (Table) 07/10/20 12:05 Gram Stain - Preliminary Pleural Fluid Body Fluid Culture - Preliminary Assessment and Plan Plan: Assessment and plan #1 congestive heart failure, acute, LV function unknown #2 hypertension, accelerated #3 acute renal failure #4 diabetes #5 hyperlipidemia #6 history of CVA with mild residual weakness in the right arm, October 2018, patient did undergo coiling at that time questionable stenting as well #7 family history of premature coronary artery disease in his mom #8 mildly abnormal troponins, could be secondary to abnormal renal function, patient will however require workup for underlying coronary artery disease once his heart failure resolves. Plan From cardiology's perspective, patient is overall doing significantly better. We will follow this patient along with you now on an as-needed basis only, please don't hesitate to call with any questions. DNP note has been reviewed, I agree with a documented findings and plan of care. Patient was seen and examined.
[2020-07-11 12:21] LABS: Glucose,Whole Blood 153 mg/dL (75-99)
[2020-07-11 12:59] LABS: Calcium 8.5 mg/dL (8.4-10.2); Potassium 3.8 mmol/L (3.5-5.1)
--- NOTE | 2020-07-11 14:04 | PN ---
PROGRESS NOTE Patient is seen for followup for acute kidney injury. He is currently doing well. He states he is feeling better after the thoracentesis. He has been walking. Lower extremity edema has improved. No complaints of chest pains or shortness of breath. Lasix is now at 40 mg p.o. b.i.d. EXAMINATION: Patient is comfortable. Blood pressure 150/79, heart rate 60 per minute, he is afebrile. Examination of the heart S1, S2. Examination of the lungs, bilateral breath sounds are heard. Abdomen is soft, nontender, obese. Examination of lower extremities shows edema trace bilaterally. [employer] exam grossly intact. LAB: Show sodium 132, potassium 3.8, chloride 98, BUN 62, creatinine 3.37. ASSESSMENT: 1. Acute kidney injury, cardiorenal, currently improved. Diuretics have been decreased. VARINDER inhibitors are maintained at a very low dose. 2. Chronic kidney disease secondary to diabetic nephropathy with about 10 g of proteinuria. Lowest creatinine this admission 2.6. No prior labs available for comparison. 3. Congestive heart failure, acute on top of chronic, mainly systolic. 4. Cardiomyopathy, ejection fraction 45 to 50%. 5. Pleural effusion status post thoracentesis. PLAN: Continue with current dose of Lasix. Maintain followup as outpatient in 1-2 weeks. MMODL / IJN: [id number] /
--- NOTE | 2020-07-11 16:08 | PN ---
PROGRESS NOTE This is a very pleasant 55-year-old male. He had a left pleural effusion. The patient had a thoracentesis performed yesterday. We had to hold his Plavix, aspirin and subcutaneous heparin to do the procedure. About 1100 mL was removed, as I recall. He tolerated the procedure well. He is feeling much better. The fluid was sent to the laboratory for analysis. He does have acute on chronic kidney disease, recent CVA with right-sided weakness, diabetes mellitus, hypertension, and he is a lifelong nonsmoker. This morning he was feeling relatively well. He denies any chest pain or chest discomfort, shortness of breath, cough, wheezing, phlegm production, GI complaints or complaints. PHYSICAL EXAMINATION: VITAL SIGNS: Current vital signs are reviewed. His temperature is 98.2, heart rate 60, respiratory rate 23, blood pressure 150/79, mean 102, room-air saturation 96%. GENERAL APPEARANCE: Appears in no acute distress. HEENT: Examination is grossly unremarkable. NECK: Supple. Full range of motion. No adenopathy. Neck veins are flat. CARDIOVASCULAR: Examination reveals regular rhythm and rate. S1, S2 normal. Heart rate 60. LUNGS: Lungs reveal clear breath sounds throughout. Breath sounds equal bilaterally. No wheezes, rhonchi or crackles. ABDOMEN: Soft. Bowel sounds are heard. EXTREMITIES: Intact. No cyanosis, clubbing or edema. SKIN: Without rash. NEUROLOGIC: Neurologic examination is brief but nonfocal. LABS/IMAGING: Labs are reviewed. Sodium 132, potassium 3.8, chloride 98, CO2 30. Anion gap is 4. BUN and creatinine were 62 and 3.37. Chest x-ray is much improved following the thoracentesis. ASSESSMENT: 1. Left pleural effusion, status post thoracentesis. 2. Pleural effusion, left, secondary to congestive heart failure and systolic dysfunction as well as renal failure. 3. Acute on chronic kidney disease. 4. History of recent cerebrovascular accident with right-sided weakness, which is improved. 5. Diabetes mellitus, type 2. 6. History of hypertension. 7. Previous adenoidectomy, appendectomy and tonsillectomy. 8. Lifelong nonsmoker. PLAN: The patient did have a left-sided thoracentesis; 1100 mL was removed on . The fluid was sent for analysis. The fluid was yellow and cloudy. The patient tolerated the procedure well. Follow-up chest x-ray showed no complication. Clinically he is doing well. The patient is being considered for discharge in the next 24 to 48 hours. We will continue to follow. CHAD / ANN: [id number] /
--- NOTE | 2020-07-11 23:04 | P.DS ---
Providers Date of admission: 07/03/20 00:13 Expected date of discharge: 07/11/20 Attending physician: Darek Soni Consults: 07/02/20 23:55 Consult Physician Routine Consulting Provider: Rodolfo Leon Consult Reason/Comments: Chronic kidney disease Do you want consulting provider notified?: Yes Consult Physician Routine Consulting Provider: Fermin Wood Consult Reason/Comments: Congestive heart failure Do you want consulting provider notified?: Yes 07/06/20 14:47 Consult Physician Routine Consulting Provider: Óscar Mejias Consult Reason/Comments: left pleural effusion Do you want consulting provider notified?: Yes 07/06/20 15:14 Consult Physician Routine Consulting Provider: Óscar Mejias Consult Reason/Comments: thoracentesis Do you want consulting provider notified?: Yes Primary care physician: [facility] Course: Chief Complaint: Shortness of breath History of presenting complaint: This is a pleasant 55-year-old patient of Dr. Fuentes. Patient is just 2 teenage sons. Patient with baseline right-sided weakness from prior stroke does use a cane. Also has obstructive sleep apnea. Also chronic kidney disease. Patient for noticed for 2 months has been increase in shortness of breath. Increasing edema. Sometimes get a bit lightheaded. Also notices that recently been sitting up upright sleeping on no recliner. No fever no chills. No cough. No chest pain or palpitation. Patient's sister the bedside. Hospital course: Admitted with acute on chronic congestive heart exacerbation. underlying chronic kidney disease. Started on Lasix drip. Patient made good urine output.left-sided thoracentesis- 1100 mL of juan c-colored fluid was removed. Today-breathing better. Ambulating. Edema is gone down. Patient weighs about his diet. He'll follow with nephrology and cardiology. Consultation: [facility] Physical examination: VITAL SIGNS: 98.2, 60, 23, 150/79, 96% room GENERAL: Sitting-comfortable EYES: Pupils equal. Conjunctiva normal. NECK: JVD possibly replaced masses not palpable. HEART: First and second heart sounds are normal; edema decreased LUNGS: Respiratory rate normal; decreased breath sounds at bases. ABDOMEN: Soft, nontender, liver spleen not palpable, no masses palpable. PSYCH: Alert and oriented x3; mood and affect normal. INVESTIGATIONS, reviewed in the clinical context: Potassium 3.8 creatinine 3.37 Admission testing White count 7.1 hemoglobin 15.9 platelets 215 potassium 4.3 bun 33 creatinine 2.61 Troponin I 0.033, 0.032, 0.045 Albumin 2.8 UA positive for protein 3+ glucose 2+ 2-D echocardiogram EF 45-50% some tricuspid regurgitation and some pulmonary hypertension inferolateral hypokinesis of the wall Ultrasound the kidneys and bladder-mostly unremarkable EKG tracing personally reviewed by me-normal sinus rhythm, right bundle-branch block subtle ST segment depression Chest x-ray film personally reviewed by me-pulmonary edema, cardiomegaly Assessment: -Acute on chronic congestive heart failure exacerbation from diastolic dysfunction EF 45-50%-respond well to IV Lasix drip. -Large left pleural effusion from CHF, status post thoracentesis, 1100 mL removed -Morbid obesity BMI 40.2 -Right hemiparesis from prior stroke -Diabetes mellitus type 2 -Essential hypertension -Chronic kidney disease stage III from diabetic nephropathy -Acute kidney injury, ATN from cardiorenal Disposition: Home Patient Condition at Discharge: Stable Plan - Discharge Summary Discharge Rx Participant: No New Discharge Prescriptions: New hydrALAZINE HCL [Apresoline] 75 mg PO TID #90 tab Aspirin 81 mg PO DAILY chew carvediloL [Coreg*] 12.5 mg PO BID-W/MEALS #60 tab Isosorbide Mononitrate ER [Imdur] 30 mg PO DAILY #30 tab.er.24h lisinopriL [Zestril] 2.5 mg PO DAILY #30 tab Continue Atorvastatin [Lipitor] 20 mg PO DAILY Clopidogrel [Plavix] 75 mg PO DAILY Potassium Chloride ER [K-Dur 20] 20 meq PO DAILY Insulin Glargine,Hum.rec.anlog [Basaglar Kwikpen U-100] See Protocol SQ AC- TID PRN PRN Reason: Blood Sugar - High Changed Furosemide [Lasix] 40 mg PO BID #60 tab Discontinued Losartan Potassium 100 mg PO DAILY Discharge Medication List Atorvastatin [Lipitor] 20 mg PO DAILY 07/03/20 [History] Clopidogrel [Plavix] 75 mg PO DAILY 07/03/20 [History] Insulin Glargine,Hum.rec.anlog [Basaglar Kwikpen U-100] See Protocol SQ AC-TID PRN 07/03/20 [History] Potassium Chloride ER [K-Dur 20] 20 meq PO DAILY 07/03/20 [History] Aspirin 81 mg PO DAILY chew 07/11/20 [Rx] Furosemide [Lasix] 40 mg PO BID #60 tab 07/11/20 [Rx] Isosorbide Mononitrate ER [Imdur] 30 mg PO DAILY #30 tab.er.24h 07/11/20 [Rx] carvediloL [Coreg*] 12.5 mg PO BID-W/MEALS #60 tab 07/11/20 [Rx] hydrALAZINE HCL [Apresoline] 75 mg PO TID #90 tab 07/11/20 [Rx] lisinopriL [Zestril] 2.5 mg PO DAILY #30 tab 07/11/20 [Rx] Follow up Appointment(s)/Referral(s): Lea Umanzor MD [STAFF PHYSICIAN] - 08/05/20 1:00 pm Gerald Greenwood MD [STAFF PHYSICIAN] - 1 Week (Office will call to schedule follow-up. ) Larry Fuentes MD [Primary Care Provider] - 07/14/20 11:30 am Patient Instructions/Handouts: Heart Failure (DC), Chronic Kidney Disease (DC), Heart Healthy Diet (DC) Discharge Disposition: HOME SELF-CARE
== END 2020-07-11 14:00 | disposition home or self-care (01) | DRG 291 ==
LOC: EC 22:30 → 3SCARD 07-03 00:13
PROVIDERS: ADMIT Hospitalist; ATTEND Hospitalist
PROC: 0W9B3ZZ Drainage of Left Pleural Cavity, Percutaneous Approach (ICD-10-PCS; principal; 2020-07-11)
DX: I13.0 Hypertensive heart and chronic kidney disease with heart failure and stage 1 through stage 4 chronic kidney disease, or unspecified chronic kidney disease (principal); I50.33 Acute on chronic diastolic (congestive) heart failure; N17.0 Acute kidney failure with tubular necrosis; E44.1 Mild protein-calorie malnutrition; J91.8 Pleural effusion in other conditions classified elsewhere; E87.0 Hyperosmolality and hypernatremia; E87.1 Hypo-osmolality and hyponatremia; I69.351 Hemiplegia and hemiparesis following cerebral infarction affecting right dominant side; I45.2 Bifascicular block; J98.11 Atelectasis; I42.9 Cardiomyopathy, unspecified; I27.22 Pulmonary hypertension due to left heart disease; E11.42 Type 2 diabetes mellitus with diabetic polyneuropathy; N18.30 Chronic kidney disease, stage 3 unspecified; E11.22 Type 2 diabetes mellitus with diabetic chronic kidney disease; Z79.4 Long term (current) use of insulin; E66.01 Morbid (severe) obesity due to excess calories; E78.5 Hyperlipidemia, unspecified; I44.0 Atrioventricular block, first degree; I07.1 Rheumatic tricuspid insufficiency; G47.33 Obstructive sleep apnea (adult) (pediatric); R79.89 Other specified abnormal findings of blood chemistry; Z71.3 Dietary counseling and surveillance; Z79.899 Other long term (current) drug therapy; Z79.02 Long term (current) use of antithrombotics/antiplatelets; Z90.49 Acquired absence of other specified parts of digestive tract; Z98.890 Other specified postprocedural states; Z88.0 Allergy status to penicillin; Z82.49 Family history of ischemic heart disease and other diseases of the circulatory system
CPT/HCPCS: 36415; 71045; 71046; 76604; 76770; 80048; 80053; 80074; 81001; 82570; 82945; 83036; 83605; 83615; 83735; 83880; 84133; 84156; 84157; 84165; 84300; 84484; 85025; 85027; 85379; 85610; 85730; 86038; 86160; 86162; 86225; 86255; 86334; 87070; 87205; 88108; 88305; 88341; 88342; 89050; 93005; 93306; 96374; 96375; 99285

== ENCOUNTER 2020-09-12 17:06 | Inpatient (IN) | payer OTHER ==
--- NOTE | 2020-09-12 17:46 | ED ---
General Adult HPI - General Chief complaint: Shortness of Breath Stated complaint: chest pain/SOB Time Seen by Provider: 09/12/20 17:33 Source: patient Mode of arrival: wheelchair Limitations: no limitations - History of Present Illness Initial comments: Dictation was produced using [employer] dictation software. please excuse any grammatical, word or spelling errors. This patient was cared for during a federal and state declared state of emergency secondary to Covid 19 Chief Complaint: 55-year-old male with past medical history of diabetes hypertension stroke and heart failure presents with shortness of breath. History of Present Illness: 55-year-old male he has multiple comorbidities. Patient states he's been feeling short of breath for the last 7 days or so. Patient reports being admitted to our hospital couple months ago. He is admitted for congestive heart failure and evaluated by cardiology. At that time he had a large pleural effusion. She persisted symptoms are similar to the last time he was admitted. Urinalysis insurance of breath is worse especially when lying flat. He states he is gained 30 pounds in the last 2 months. He's been taking his medications as prescribed. If her. No chills or night sweats. No sore throat or runny nose. No muscle aches. No headaches. No obvious exposure to antibiotic coronavirus. The ROS documented in this emergency department record has been reviewed and confirmed by me. Those systems with pertinent positive or negative responses have been documented in the HPI. All other systems are other negative and/or noncontributory. PHYSICAL EXAM: General Impression: Alert and oriented x3, not in acute distress HEENT: Normocephalic atraumatic, extra-ocular movements intact, pupils equal and reactive to light bilaterally, mucous membranes moist. Cardiovascular: Heart regular rate and rhythm Chest: Able to complete full sentences, no retractions, no tachypnea, mild crackles with auscultation to the lungs Abdomen: abdomen soft, non-tender, non-distended, no organomegaly Musculoskeletal: Pulses present and equal in all extremities, 1+ edema bilaterally Motor: no focal deficits noted Neurological: CN II-XII grossly intact, no focal motor or sensory deficits noted Skin: Intact with no visualized rashes Psych: Normal affect and mood ED course: 55-year-old male multiple coronary disease presents with dyspnea. Vital signs upon arrival shows blood pressure 203/99, worse vital signs within acceptable limits. Laboratory evaluation obtained. CBC and a marble. Coag panel is unremarkable. D-dimer is elevated at 1.61. Metabolic panel shows cranial 2.91 which appears to be improved compared to his baseline. Troponin is elevated 0.043 which appears to be around his baseline. Brain natruretic peptide is 44,000. Coronavirus test is negative. Chest x-ray shows bilateral pleural effusions and mild congestive heart failure. Given patient's elevated blood pressure, symptoms of dyspnea and x-ray and lab findings concerning for CHF exacerbation. Patient's blood pressure significantly elevated. Clinical presentation concerning also for hypertensive emergency. Patient given sublingual nitroglycerin and started on nitroglycerin infusion. Case is discussed with Dr. Soni is willing to accept patients care for admission. Patient is pending neuro S and scan to evaluate for possible PE given that patient is elevated d-dimer. Patient given one dose of Lovenox subcu pending nuclear medicine scan. This is discussed with Dr. Soni who requests ICU admission. Case is discussed with Dr. Brady was went except patient's care however I see is currently full patient be boarded in the emergency room. Should patient's clinical status stabilizes to the point where he will no longer any ICU admission Dr. Brady requested patient be admitted to the floor instead. Cardiology consulted. he given aspirin. EKG interpretation: Ventricular rate 65, sinus rhythm, SD interval 260, QRS 134, QTC 482, right bundle branch block. No SD prolongation, no QTC prolongation, no ST or T-wave changes noted. EKG compared to 07/02/2020 showing no changes. Overall, this EKG is unremarkable - Related Data Home Medications Medication Instructions Recorded Confirmed Furosemide [Lasix] 40 mg PO DAILY 09/12/20 09/12/20 Losartan Potassium 100 mg PO DAILY 09/12/20 09/12/20 hydrALAZINE HCL [Apresoline] 100 mg PO AC-TID 09/12/20 09/12/20 Previous Rx's Medication Instructions Recorded Aspirin 81 mg PO DAILY chew 07/11/20 Isosorbide Mononitrate ER [Imdur] 30 mg PO DAILY #30 tab.er.24h 07/11/20 carvediloL [Coreg*] 12.5 mg PO BID-W/MEALS #60 tab 07/11/20 Allergies Allergy/AdvReac Type Severity Reaction Status Date / Time Penicillins Allergy Swelling Verified 09/12/20 18:05 Review of Systems ROS Statement: Those systems with pertinent positive or pertinent negative responses have been documented in the HPI. ROS Other: All systems not noted in ROS Statement are negative. Past Medical History Past Medical History: CVA/TIA, Diabetes Mellitus, Hypertension Additional Past Medical History / Comment(s): right hand/leg weakness d/t CVA History of Any Multi-Drug Resistant Organisms: None Reported Past Surgical History: Adenoidectomy, Appendectomy, Tonsillectomy Past Psychological History: No Psychological Hx Reported Smoking Status: Never smoker Past Alcohol Use History: None Reported Past Drug Use History: None Reported General Exam Limitations: no limitations Course Vital Signs 09/12/20 09/12/20 09/12/20 17:25 17:39 19:20 Temperature 98.5 F Pulse Rate 63 64 61 Respiratory 18 24 26 H Rate Blood Pressure 203/99 199/114 202/112 O2 Sat by Pulse 97 98 98 Oximetry Medical Decision Making - Lab Data Result diagrams: 09/12/20 17:45 09/12/20 17:45 Lab Results 09/12/20 09/12/20 09/12/20 Range/Units 17:45 17:45 17:45 WBC 6.4 (3.8-10.6) k/uL RBC 4.88 (4.30-5.90) m/uL Hgb 15.1 (13.0-17.5) gm/dL Hct 44.4 (39.0-53.0) % MCV 91.0 (80.0-100.0) fL MCH 30.9 (25.0-35.0) pg MCHC 33.9 (31.0-37.0) g/dL RDW 14.3 (11.5-15.5) % Plt Count 161 (150-450) k/uL MPV 7.7 Neutrophils % 73 % Lymphocytes % 17 % Monocytes % 5 % Eosinophils % 3 % Basophils % 2 % Neutrophils # 4.6 (1.3-7.7) k/uL Lymphocytes # 1.1 (1.0-4.8) k/uL Monocytes # 0.3 (0-1.0) k/uL Eosinophils # 0.2 (0-0.7) k/uL Basophils # 0.1 (0-0.2) k/uL PT 11.1 (9.0-12.0) sec INR 1.1 (<1.2) APTT 27.6 (22.0-30.0) sec D-Dimer 1.61 H (<0.60) mg/L FEU Sodium 136 L (137-145) mmol/L Potassium 3.7 (3.5-5.1) mmol/L Chloride 109 H (98-107) mmol/L Carbon Dioxide 23 (22-30) mmol/L Anion Gap 4 mmol/L BUN 41 H (9-20) mg/dL Creatinine 2.91 H (0.66-1.25) mg/dL Est GFR (CKD-EPI)AfAm 26 (>60 ml/min/1.73 sqM) Est GFR (CKD-EPI)NonAf 23 (>60 ml/min/1.73 sqM) Glucose 187 H (74-99) mg/dL Plasma Lactic Acid Kiko (0.7-2.0) mmol/L Calcium 8.4 (8.4-10.2) mg/dL Total Bilirubin 1.0 (0.2-1.3) mg/dL AST 26 (17-59) U/L ALT 18 (4-49) U/L Alkaline Phosphatase 101 (38-126) U/L Troponin I (0.000-0.034) ng/mL NT-Pro-B Natriuret Pep pg/mL Total Protein 5.5 L (6.3-8.2) g/dL Albumin 2.8 L (3.5-5.0) g/dL Coronavirus (PCR) (Not Detectd) 09/12/20 09/12/20 09/12/20 Range/Units 17:45 17:45 17:45 WBC (3.8-10.6) k/uL RBC (4.30-5.90) m/uL Hgb (13.0-17.5) gm/dL Hct (39.0-53.0) % MCV (80.0-100.0) fL MCH (25.0-35.0) pg MCHC (31.0-37.0) g/dL RDW (11.5-15.5) % Plt Count (150-450) k/uL MPV Neutrophils % % Lymphocytes % % Monocytes % % Eosinophils % % Basophils % % Neutrophils # (1.3-7.7) k/uL Lymphocytes # (1.0-4.8) k/uL Monocytes # (0-1.0) k/uL Eosinophils # (0-0.7) k/uL Basophils # (0-0.2) k/uL PT (9.0-12.0) sec INR (<1.2) APTT (22.0-30.0) sec D-Dimer (<0.60) mg/L FEU Sodium (137-145) mmol/L Potassium (3.5-5.1) mmol/L Chloride (98-107) mmol/L Carbon Dioxide (22-30) mmol/L Anion Gap mmol/L BUN (9-20) mg/dL Creatinine (0.66-1.25) mg/dL Est GFR (CKD-EPI)AfAm (>60 ml/min/1.73 sqM) Est GFR (CKD-EPI)NonAf (>60 ml/min/1.73 sqM) Glucose (74-99) mg/dL Plasma Lactic Acid Kiko 1.0 (0.7-2.0) mmol/L Calcium (8.4-10.2) mg/dL Total Bilirubin (0.2-1.3) mg/dL AST (17-59) U/L ALT (4-49) U/L Alkaline Phosphatase (38-126) U/L Troponin I 0.043 H* (0.000-0.034) ng/mL NT-Pro-B Natriuret Pep 92412 pg/mL Total Protein (6.3-8.2) g/dL Albumin (3.5-5.0) g/dL Coronavirus (PCR) (Not Detectd) 09/12/20 Range/Units 17:45 WBC (3.8-10.6) k/uL RBC (4.30-5.90) m/uL Hgb (13.0-17.5) gm/dL Hct (39.0-53.0) % MCV (80.0-100.0) fL MCH (25.0-35.0) pg MCHC (31.0-37.0) g/dL RDW (11.5-15.5) % Plt Count (150-450) k/uL MPV Neutrophils % % Lymphocytes % % Monocytes % % Eosinophils % % Basophils % % Neutrophils # (1.3-7.7) k/uL Lymphocytes # (1.0-4.8) k/uL Monocytes # (0-1.0) k/uL Eosinophils # (0-0.7) k/uL Basophils # (0-0.2) k/uL PT (9.0-12.0) sec INR (<1.2) APTT (22.0-30.0) sec D-Dimer (<0.60) mg/L FEU Sodium (137-145) mmol/L Potassium (3.5-5.1) mmol/L Chloride (98-107) mmol/L Carbon Dioxide (22-30) mmol/L Anion Gap mmol/L BUN (9-20) mg/dL Creatinine (0.66-1.25) mg/dL Est GFR (CKD-EPI)AfAm (>60 ml/min/1.73 sqM) Est GFR (CKD-EPI)NonAf (>60 ml/min/1.73 sqM) Glucose (74-99) mg/dL Plasma Lactic Acid Kiko (0.7-2.0) mmol/L Calcium (8.4-10.2) mg/dL Total Bilirubin (0.2-1.3) mg/dL AST (17-59) U/L ALT (4-49) U/L Alkaline Phosphatase (38-126) U/L Troponin I (0.000-0.034) ng/mL NT-Pro-B Natriuret Pep pg/mL Total Protein (6.3-8.2) g/dL Albumin (3.5-5.0) g/dL Coronavirus (PCR) Not Detected (Not Detectd) Critical Care Time Critical Care Time: Yes Total Critical Care Time: 33 Disposition Clinical Impression: Hypertensive emergency, Heart failure Disposition: ADMITTED IP TO THIS [facility] Condition: Critical Referrals: Larry Fuentes MD [Primary Care Provider] - 1-2 days Decision Time: 19:58
[2020-09-12 17:58] LABS: Basophils # (A) 0.1 k/uL (0-0.2); Basophils % (A) 2 %; Eosinophils # (A) 0.2 k/uL (0-0.7); Eosinophils % (A) 3 %; HCT 44.4 % (39.0-53.0); HGB 15.1 gm/dL (13.0-17.5); Lymphocytes # (A) 1.1 k/uL (1.0-4.8); Lymphocytes % (A) 17 %; MCH 30.9 pg (25.0-35.0); MCHC 33.9 g/dL (31.0-37.0); Mean Platelet Volume 7.7; Monocytes # (A) 0.3 k/uL (0-1.0); Monocytes % (A) 5 %; Neutrophils # (A) 4.6 k/uL (1.3-7.7); Neutrophils % (A) 73 %; Platelet Count 161 k/uL (150-450); RBC 4.88 m/uL (4.30-5.90); RDW 14.3 % (11.5-15.5); WBC 6.4 k/uL (3.8-10.6)
[2020-09-12 18:14] LABS: Albumin 2.8 g/dL (3.5-5.0); Calcium 8.4 mg/dL (8.4-10.2); Potassium 3.7 mmol/L (3.5-5.1); Total Protein 5.5 g/dL (6.3-8.2)
--- NOTE | 2020-09-12 18:28 | XR ---
EXAMINATION TYPE: XR chest 2V DATE OF EXAM: 09/12/2020 COMPARISON: 07/10/2020 HISTORY: Difficulty breathing TECHNIQUE: FINDINGS: There is bilateral blunting of the costophrenic angles and more on the left side. There is mild pulmonary congestion. Heart is slightly enlarged. There are chest leads. IMPRESSION: Bilateral pleural effusions and mild congestive heart failure. Pleural fluid increased on the left side and unchanged on the right side compared to old exam.
[2020-09-12 18:29] LABS: INR 1.1 (<1.2); Partial Thromboplastin Time 27.6 sec (22.0-30.0); Prothrombin Time 11.1 sec (9.0-12.0)
[2020-09-12 18:39] LABS: D-Dimer 1.61 mg/L FEU (<0.60)
[2020-09-12] MEDS ORDERED: ENOXAPARIN 150 MG/ML SYRINGE SQ STA (18:42)
[2020-09-12] MEDS ORDERED: NITROGLYCERIN SL TABS 0.4 MG TAB SUBLINGUAL STA (19:25)
[2020-09-12] MEDS ORDERED: NITROGLYCERIN-D5W PMX 50 MG in DEXTROSE/WATER 1 250ML.BAG IV ONE (19:28)
[2020-09-12] MEDS ORDERED: ASPIRIN 81 MG PO STA ×2 (19:48→19:56)
[2020-09-12] MEDS ORDERED: NALOXONE 0.4 MG/ML 1 ML VIAL IV PRN (19:55)
--- NOTE | 2020-09-12 20:48 | NM ---
EXAMINATION TYPE: NM pul vent and perfuse DATE OF EXAM: 09/12/2020 COMPARISON: NONE HISTORY: Short of breath TECHNIQUE: Utilizing inhalation of 67.8 mCi Tc 99m DTPA aerosol and intravenous injection of 5.4 mCi of Tc 99m MAA, ventilation and perfusion images are acquired post injection in multiple projections. FINDINGS: There is large matching defect in the ventilation perfusion images involving the left lower lobe. Thi s is in the area of pleural fluid and airspace consolidation evident on the chest x-ray today. The ri ght lung shows no evidence of any significant ventilation perfusion defect. IMPRESSION: Large matching defect on the left side consistent with a large pleural effusion. There is intermediat e probability of pulmonary embolism.
[2020-09-12] MEDS: NITROGLYCERIN-D5W PMX 50 MG in DEXTROSE/WATER 1 250ML.BAG IV ONE (21:02)
[2020-09-12] MEDS: SODIUM CHLORIDE 0.9% 1,000 ML IV SCH (21:04)
[2020-09-12] MEDS: carvediloL 12.5 MG TAB PO SCH (22:29)
[2020-09-12] MEDS: hydrALAZINE HCL 50 MG TAB PO SCH (22:29)
[2020-09-13] MEDS ORDERED: FUROSEMIDE 40 MG TAB PO SCH (09:00)
[2020-09-13] MEDS: NITROGLYCERIN-D5W PMX 50 MG in DEXTROSE/WATER 1 250ML.BAG IV ONE (09:05)
--- NOTE | 2020-09-13 09:23 | US ---
EXAMINATION TYPE: US chest DATE OF EXAM: 09/13/2020 COMPARISON: Radiograph 09/12/2020 CLINICAL HISTORY: 55-year-old male pleural effusion, left. TECHNIQUE: Targeted ultrasound of the posterior lower left hemithorax FINDINGS: EXAM MEASUREMENTS: Left Pleural Effusion pocket size: 9.5 cm Left skin surface to fluid distance: 2.9 cm Left side marked for possible thoracentesis outside the dept. Pulmonologists are able to review the images in the patient?s EMR. IMPRESSIONS: Moderate left pleural effusion.
[2020-09-13] MEDS: hydrALAZINE HCL 50 MG TAB PO SCH ×3 (09:25→17:12)
[2020-09-13] MEDS: ISOSORBIDE MONONITRATE ER 30 MG TAB.ER.24H PO SCH (09:25)
[2020-09-13] MEDS: LOSARTAN 50 MG TAB PO SCH (09:25)
[2020-09-13] MEDS: ASPIRIN 81 MG PO SCH (09:26)
[2020-09-13] MEDS: FUROSEMIDE 10 MG/ML 4 ML VIAL IV SCH ×2 (09:26→20:59)
[2020-09-13] MEDS: carvediloL 12.5 MG TAB PO SCH ×2 (09:26→17:11)
--- NOTE | 2020-09-13 11:08 | CONS ---
CONSULTATION PULMONARY/CRITICAL CARE CONSULTATION: DATE OF SERVICE: September 13, 2020 REASON FOR CONSULTATION: Shortness of breath, hypertensive urgency/emergency. HISTORY OF PRESENT ILLNESS: A 55-year-old gentleman with multiple medical problems. He comes to the emergency room complaining of shortness of breath for about 7 days. He was in the hospital a couple months back with a similar episode. He has a history of congestive heart failure. At that time, he had a pleural effusion and we did a thoracentesis on the patient. More recently, the patient has been complaining of significant weight gain. He states he has been taking his medications as prescribed. He denies any chest pain or chest discomfort. Denies any fever or chills. There is no nausea, vomiting, diarrhea. No abdominal pain. No muscle aches or joint aches. The patient was admitted to the hospital. I was called from the ER, Dr. Sifuentes. The patient was placed on nitroglycerin for blood pressure control. He wanted the patient in the intensive care unit. Unfortunately, there were no beds available. Chest x-ray shows findings that are consistent with CHF with left-sided pleural effusion. HOME MEDICATIONS: Include Lasix, losartan, Apresoline, aspirin, Imdur, Coreg. ALLERGIES: PENICILLIN. MEDICAL HISTORY: Hypertension, CHF, diabetes, CVA, and some other minor medical problems. He does have a prior history also of pleural effusion requiring thoracentesis. SURGICAL HISTORY: Includes adenoidectomy, appendectomy, and tonsillectomy. SOCIAL HISTORY: Negative for tobacco use. No alcohol use or illicit drug use. FAMILY HISTORY: Noncontributory. REVIEW OF SYSTEMS: CONSTITUTIONAL weakness. NEUROLOGIC negative. HEENT negative. CARDIOVASCULAR negative. PULMONARY shortness of breath. GI negative. negative. RHEUMATOLOGIC negative. IMMUNOLOGIC negative. ENDOCRINOLOGIC negative. DERMATOLOGIC negative. PHYSICAL EXAMINATION: VITAL SIGNS: Current vital signs reviewed. Temperature 98.5. Heart rate 61, respiratory rate 18, blood pressure 176/89, mean 118. 3 L saturation 96%. GENERAL: Appears in no acute distress. HEENT: Examination is grossly unremarkable. NECK: Supple. Full range of motion. No adenopathy. Neck veins are flat. CARDIOVASCULAR: Examination reveals a regular rhythm and rate. Heart sounds are distant. Heart rate 61 beats per minute. No murmur. LUNGS: Reveal bibasilar crackles. There is dullness at the left base. No wheezes. ABDOMEN: Soft. Bowel sounds are heard. EXTREMITIES: Reveal some mild edema. SKIN: Without rash. NEUROLOGIC: Examination is nonfocal. Currently, the patient is on room air. He is getting a nitroglycerin drip. White count 6.4, hemoglobin 15.1, hematocrit 44.4, platelet count 161,000. PT 11.1, INR 1.1, PTT of 27.6. D-dimer 1.61. Sodium 136, potassium 3.7, chloride 109, and CO2 23. Anion gap is 4. BUN and creatinine were 41 and 2.91, glucose 187. Troponin 0.043. N- terminal proBNP 44,100. Albumin 2.8. COVID testing was negative. Microbiology is negative or pending. The perfusion lung scan was done. It was intermediate. There was a matching defects on the left side consistent with the patient's known history of left pleural effusion. Chest x-ray done yesterday shows bilateral pleural effusions, left greater than right and congestive changes. Medications are reviewed. The patient is on aspirin, Coreg, Lasix, Apresoline, Imdur, losartan, Narcan, and nitroglycerin drip. ASSESSMENT: 1. Hypertensive urgency/emergency with congestive heart failure. 2. Hypertensive nephropathy with fibrinoid necrosis and worsening renal function. 3. Previous history of similar episodes, requiring left-sided thoracentesis. 4. Left pleural effusion. 5. History of hypertension. 6. Previous history of cerebrovascular accident with right-sided weakness. 7. Diabetes mellitus. PLAN: The patient's Lasix will be increased. The patient may or may not come to the ICU depending on availability. We will do an ultrasound of the left chest. He may require a repeat thoracentesis. Additional recommendations and suggestions are forthcoming. Prognosis is guarded. MMODL / IJN: [id number] /
--- NOTE | 2020-09-13 11:35 | P.CRDCN ---
History of Present Illness Consult date: 09/13/20 History of present illness: CHIEF COMPLAINT: Hypertensive emergency HISTORY OF PRESENT ILLNESS: This is a 55 -year old male with a past medical history significant for hypertension, CVA, CHF and obesity. Patient follows in the office with Dr. Wood. We have been asked to see the patient in consultation for hypertensive emergency. Patient examined this morning at the bedside in the emergency room. Patient reports he has been having increasing shortness of breath over the past week and increasing edema to his lower 70s. Patient states he usually is able to lay flat in bed with 2 pillows without feeling short of breath. However over the past week he has been having to sit up or sleep in the chair due to shortness of breath. He reports weight gain of about 10 pounds in the past week. He also reports nausea and vomiting over the past week. He states he has been compliant with all his medications however due to his nausea and vomiting he's not sure how much of his medications "stayed down". The patient was hypertensive upon presentation to the emergency room with a pressure of 203/99. He was started on a nitro drip. It is noted the patient was hospitalized in June 2020 secondary to CHF. Patient had a large pleural effusion at that time and underwent thoracentesis by pulmonary services. Echocardiogram at that time revealed ejection fraction 45-50%, mild mitral regurgitation, mild to moderate tricuspid regurgitation, and pulmonary hypertension. DIAGNOSTICS: EKG reveals sinus rhythm. First degree AV block. Right bundle branch block. Chest xray bilateral pleural effusions and mild heart failure. Pleural fluid increased on the left side unchanged on the right side compared to old exam. VQ scan: Large matching defect on the left side consistent with large pleural effusion. There is intermediate probability of PE. Laboratory data: W BC 6.4. Hemoglobin 15.1. Platelet count 161. D-dimer 1.61. Sodium 136. Potassium 3.7. BUN 41. Creatinine 2.91. Lactic acid 1.0. BNP 44,100. Troponin 0.043. Current home cardiac medications include hydralazine 100 mg 3 times a day, losartan 100 mg daily, Coreg 12.5 mg twice a day, Imdur 39 g daily, Lasix 40 mg daily, and aspirin 81 mg daily REVIEW OF SYSTEMS: At the time of my exam: CONSTITUTIONAL: Denies fever or chills. HEENT: Denies blurred vision, vision changes, or eye pain. Denies hemoptysis CARDIOVASCULAR: Denies chest pain, orthopnea, PND or palpitations RESPIRATORY: Reports shortness of breath. GASTROINTESTINAL: Denies abdominal pain. Denies nausea or vomiting. HEMATOLOGIC: Denies bleeding disorders. GENITOURINARY: Denies any blood in urine. SKIN: Denies pruitis. Denies rash. PHYSICAL EXAM: VITAL SIGNS: Reviewed. GENERAL: Well-developed in no acute distress. HEENT: Head is normocephalic. Pupils are equal, round. Sclerae anicteric. Mucous membranes of the mouth are moist. Neck supple. No JVD or thyromegaly LUNGS: Respirations even and unlabored. Lungs diminished with rales to bilateral bases HEART: Regular rate and rhythm. S1 and S2 heard. ABDOMEN: Soft. Nondistended. Mild tenderness of right lower quadrant. EXTREMITIES: Normal range of motion. No clubbing or cyanosis. Peripheral pulses intact. 2+ bilateral lower extremity edema NEUROLOGIC: Awake and alert. Oriented x 3. ASSESSMENT: Shortness of breath Large left pleural effusion per VQ scan Acute exacerbation of chronic systolic congestive heart failure, EF 45%, BNP 44,000 Hypertension, uncontrolled Nausea and vomiting Diabetes mellitus, type II History of CVA Chronic kidney disease PLAN: Resume home cardiac medications Wean nitro drip Add Norvasc 10mg daily Begin IV Lasix: 40 mg IV every 12 hours Daily weights Accurate I&O Monitor kidney function Pulmonary consulted. Await evaluation Further recommendations pending patient's course Nurse practitioner note has been reviewed by physician. Signing provider agrees with the documented findings, assessment, and plan of care. Past Medical History Past Medical History: CVA/TIA, Diabetes Mellitus, Hypertension Additional Past Medical History / Comment(s): right hand/leg weakness d/t CVA History of Any Multi-Drug Resistant Organisms: None Reported Past Surgical History: Adenoidectomy, Appendectomy, Tonsillectomy Past Psychological History: No Psychological Hx Reported Smoking Status: Never smoker Past Alcohol Use History: None Reported Past Drug Use History: None Reported Medications and Allergies Home Medications Medication Instructions Recorded Confirmed Type Aspirin 81 mg PO DAILY chew 07/11/20 09/12/20 Rx Isosorbide Mononitrate ER [Imdur] 30 mg PO DAILY #30 tab.er.24h 07/11/20 09/12/20 Rx carvediloL [Coreg*] 12.5 mg PO BID-W/MEALS #60 tab 07/11/20 09/12/20 Rx Furosemide [Lasix] 40 mg PO DAILY 09/12/20 09/12/20 History Losartan Potassium 100 mg PO DAILY 09/12/20 09/12/20 History hydrALAZINE HCL [Apresoline] 100 mg PO AC-TID 09/12/20 09/12/20 History Allergies Allergy/AdvReac Type Severity Reaction Status Date / Time Penicillins Allergy Swelling Verified 09/12/20 18:05 Physical Exam Vitals: Vital Signs Temp Pulse Resp BP Pulse Ox 09/13/20 09:00 61 18 174/92 98 09/13/20 08:00 61 18 176/89 96 09/13/20 07:49 61 18 170/89 96 09/13/20 07:00 63 20 168/88 97 09/13/20 06:00 65 20 176/93 98 09/13/20 05:00 60 24 173/92 98 09/13/20 04:00 98.5 F 60 18 172/95 96 09/13/20 03:00 60 171/95 97 09/13/20 02:00 55 L 22 159/95 97 09/13/20 01:00 59 L 20 160/88 98 09/13/20 00:40 57 L 22 158/82 98 09/13/20 00:00 60 18 150/82 98 09/12/20 23:00 61 20 205/114 99 09/12/20 22:22 61 22 211/118 97 09/12/20 22:00 62 20 189/98 97 09/12/20 21:00 64 24 209/127 97 09/12/20 19:20 61 26 H 202/112 98 09/12/20 17:39 64 24 199/114 98 09/12/20 17:25 98.5 F 63 18 203/99 97 Intake and Output 09/12/20 09/13/20 09/13/20 22:59 06:59 14:59 Intake Total 8.4 152.4 89.2 Balance 8.4 152.4 89.2 Intake: Intake, IV Titration 8.4 152.4 89.2 Amount Nitroglycerin-D5w Pmx 50 8.4 152.4 89.2 mg In Dextrose/Water 1 250ml.bag @ 20 MCG/MIN 6 mls/hr IV .Q24H ONE Rx#: [id number] Other: Weight 127.006 kg Results 09/12/20 17:45 09/12/20 17:45 Cardiac Enzymes 09/12/20 12 Range/Units 17:45 17:45 AST 26 (17-59) U/L Troponin I 0.043 H* (0.000-0.034) ng/mL Coagulation 09/12/20 Range/Units 17:45 PT 11.1 (9.0-12.0) sec APTT 27.6 (22.0-30.0) sec CBC 09/12/20 Range/Units 17:45 WBC 6.4 (3.8-10.6) k/uL RBC 4.88 (4.30-5.90) m/uL Hgb 15.1 (13.0-17.5) gm/dL Hct 44.4 (39.0-53.0) % Plt Count 161 (150-450) k/uL Comprehensive Metabolic Panel 09/12/20 Range/Units 17:45 Sodium 136 L (137-145) mmol/L Potassium 3.7 (3.5-5.1) mmol/L Chloride 109 H (98-107) mmol/L Carbon Dioxide 23 (22-30) mmol/L BUN 41 H (9-20) mg/dL Creatinine 2.91 H (0.66-1.25) mg/dL Glucose 187 H (74-99) mg/dL Calcium 8.4 (8.4-10.2) mg/dL AST 26 (17-59) U/L ALT 18 (4-49) U/L Alkaline Phosphatase 101 (38-126) U/L Total Protein 5.5 L (6.3-8.2) g/dL Albumin 2.8 L (3.5-5.0) g/dL Current Medications Generic Name Dose Route Start Last Admin Trade Name Freq PRN Reason Stop Dose Admin Aspirin 81 mg 09/13/20 09:00 09/13/20 09:26 Aspirin 81 Mg PO 81 mg DAILY BRENT Administration Carvedilol 12.5 mg 09/12/20 21:45 09/13/20 09:26 Carvedilol 12.5 Mg Tab PO 12.5 mg BID-W/MEALS BRENT Administration Furosemide 40 mg 09/13/20 09:00 09/13/20 09:26 Furosemide 10 Mg/Ml 4 Ml Vial IV 40 mg Q12HR BRENT Administration Hydralazine HCl 100 mg 09/12/20 21:32 09/13/20 09:25 Hydralazine Hcl 50 Mg Tab PO 100 mg AC-TID BRENT Administration Nitroglycerin/Dextrose 50 mg/ 250 mls @ 6 mls/hr 09/12/20 19:50 09/13/20 09:05 IV Solution IV 09/13/20 19:49 200 mcg/min .Q24H ONE 60 mls/hr Administration Protocol 20 MCG/MIN Sodium Chloride 1,000 mls @ 20 mls/hr 09/12/20 20:00 09/12/20 21:04 Saline 0.9% IV 20 mls/hr .Q24H BRENT Administration Isosorbide Mononitrate 30 mg 09/13/20 09:00 09/13/20 09:25 Isosorbide Mononitrate Er 30 Mg Tab.Er.24h PO 30 mg DAILY BRENT Administration Losartan Potassium 100 mg 09/13/20 09:00 Losartan 50 Mg Tab PO DAILY BRENT Naloxone HCl 0.2 mg 09/12/20 19:55 Naloxone 0.4 Mg/Ml 1 Ml Vial IV Q2M PRN Opioid Reversal Intake and Output 09/12/20 09/13/20 09/13/20 22:59 06:59 14:59 Intake Total 8.4 152.4 89.2 Balance 8.4 152.4 89.2 Intake: Intake, IV Titration 8.4 152.4 89.2 Amount Nitroglycerin-D5w Pmx 50 8.4 152.4 89.2 mg In Dextrose/Water 1 250ml.bag @ 20 MCG/MIN 6 mls/hr IV .Q24H ONE Rx#: [id number] Other: Weight 127.006 kg 09/12/20 17:45 09/12/20 17:45
[2020-09-13] MEDS: amLODIPine 10 MG TAB PO SCH (12:07)
[2020-09-13] MEDS: cloNIDine HCL 0.2 MG TAB PO SCH ×3 (12:07→20:59)
[2020-09-13 16:39] LABS: Glucose,Whole Blood 110 mg/dL (75-99)
[2020-09-13] MEDS: METOCLOPRAMIDE 10 MG TAB PO SCH ×2 (17:11→20:59)
[2020-09-13 19:52] LABS: Glucose,Whole Blood 140 mg/dL (75-99)
--- NOTE | 2020-09-13 20:44 | P.HPIM ---
History of Present Illness H&P Date: 09/13/20 Chief Complaint: Nausea vomiting History of presenting complaint: This is a pleasant 55-year-old patient of Dr. Fuentes. Patient with baseline right-sided weakness from prior stroke does use a cane. Also has obstructive sleep apnea. Patient was in the hospital and of June. Admitted with-acute CHF exacerbation to EF of 45%, large left-sided thoracentesis, acute kidney injury cardiorenal. Chronic stable medical conditions include right-sided weakness from prior stroke, diabetes, hypertension. Patient now presents for having nausea vomiting for 3 weeks. Since he did go to see a doctor to some change in medication not sure which. No fever no chills. Has a bowel movement every to 3 days. No abdominal pain. Has been taking his medicines regularly up to recently. Also having increasing lower extremity edema. Tired rundown. Patient had uncontrolled blood pressures in the ER. Put on IV nitro drip. Review of systems: GEN.: Tired EYES: None HEENT: None NECK: None RESPIRATORY: As above CARDIOVASCULAR: Edema GASTROINTESTINAL: As above GENITOURINARY: None MUSCULOSKELETAL: Joint pains LYMPHATICS: None HEMATOLOGICAL: None PSYCHIATRY: Anxious NEUROLOGICAL: Chronic right-sided weakness from prior stroke Past medical history to include: CH-45-50% F, stroke with right-sided weakness, diabetes, hypertension, Social history: Does not smoke or drink alcohol. Lives with 2 sons. Physical examination: VITAL SIGNS: 98.5, 63, 18, 203/99, 97% on room air-upon presentation GENERAL: BMI 40.2, propped up in bed, tired EYES: Pupils equal. Conjunctiva normal. HEENT: External appearance of nose and ears normal, oral cavity -dry NECK: JVD unable to assess- masses not palpable. HEART: First and second heart sounds are normal; edema present. LUNGS: Respiratory rate increased; decreased breath sounds at bases. ABDOMEN: Soft, nontender, liver spleen not palpable, no masses palpable. PSYCH: Alert and oriented x3; mood and affect anxious NEUROLOGICAL: Cranial nerves grossly intact; no facial asymmetry, chronic right-sided weakness LYMPHATICS: No lymph nodes palpable in the axilla and neck INVESTIGATIONS, reviewed in the clinical context: White count 6.4 hemoglobin 15.1 platelets 161 potassium 3.7 bun 41 and creatinine 2.91 Troponin I 0.043 albumin 2.8 Coronavirus P/Cr-not detected EKG tracing personally reviewed by me-right bundle-branch block, some ST segment changes Chest x-ray film personally reviewed by [id number] infiltrate/effusion Previous testing: Bun 62 creatinine 3.37 on July 11 2-D echocardiogram [May 2020] EF 45-50% some tricuspid regurgitation and some pulmonary hypertension inferolateral hypokinesis of the wall Assessment: -Hypertensive urgency from patient not be able to take his medications for last 3 weeks from nausea vomiting.. 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 Possible diabetic gastroparesis. No clinical evidence of acute abdomen -Troponin leak from hemodynamic mismatch. No clinical evidence of acute coronary syndrome. Plan: Patient was started on nitroglycerin drip in the ER. Start the patient on Reglan. Consult cardiology, pulmonary, nephrology and GI. Care was discussed the patient reassured. Will put the patient on liquid diet. Other home medications to be resumed. Follow Accu-Cheks. Past Medical History Past Medical History: CVA/TIA, Diabetes Mellitus, Hypertension Additional Past Medical History / Comment(s): right hand/leg weakness d/t CVA History of Any Multi-Drug Resistant Organisms: None Reported Past Surgical History: Adenoidectomy, Appendectomy, Tonsillectomy Past Psychological History: No Psychological Hx Reported Smoking Status: Never smoker Past Alcohol Use History: None Reported Past Drug Use History: None Reported - Past Family History Father Additional Family Medical History / Comment(s): leukemia Mother Family Medical History: Diabetes Mellitus, Hypertension Medications and Allergies Home Medications Medication Instructions Recorded Confirmed Type Aspirin 81 mg PO DAILY chew 07/11/20 09/12/20 Rx Isosorbide Mononitrate ER [Imdur] 30 mg PO DAILY #30 tab.er.24h 07/11/20 09/12/20 Rx carvediloL [Coreg*] 12.5 mg PO BID-W/MEALS #60 tab 07/11/20 09/12/20 Rx Furosemide [Lasix] 40 mg PO DAILY 09/12/20 09/12/20 History Losartan Potassium 100 mg PO DAILY 09/12/20 09/12/20 History hydrALAZINE HCL [Apresoline] 100 mg PO AC-TID 09/12/20 09/12/20 History Allergies Allergy/AdvReac Type Severity Reaction Status Date / Time Penicillins Allergy Swelling Verified 09/12/20 18:05 Physical Exam Vitals: Vital Signs Temp Pulse Resp BP Pulse Ox 09/13/20 10:30 67 18 153/91 95 09/13/20 10:15 62 18 148/74 96 09/13/20 09:50 61 18 180/98 96 09/13/20 09:35 61 18 190/98 96 09/13/20 09:00 61 18 174/92 98 09/13/20 08:00 61 18 176/89 96 09/13/20 07:49 61 18 170/89 96 09/13/20 07:00 63 20 168/88 97 09/13/20 06:00 65 20 176/93 98 09/13/20 05:00 60 24 173/92 98 09/13/20 04:00 98.5 F 60 18 172/95 96 09/13/20 03:00 60 171/95 97 09/13/20 02:00 55 L 22 159/95 97 09/13/20 01:00 59 L 20 160/88 98 09/13/20 00:40 57 L 22 158/82 98 09/13/20 00:00 60 18 150/82 98 09/12/20 23:00 61 20 205/114 99 09/12/20 22:22 61 22 211/118 97 09/12/20 22:00 62 20 189/98 97 09/12/20 21:00 64 24 209/127 97 09/12/20 19:20 61 26 H 202/112 98 09/12/20 17:39 64 24 199/114 98 09/12/20 17:25 98.5 F 63 18 203/99 97 Intake and Output 09/12/20 09/13/20 09/13/20 22:59 06:59 14:59 Intake Total 8.4 152.4 135.7 Balance 8.4 152.4 135.7 Intake: Intake, IV Titration 8.4 152.4 135.7 Amount Nitroglycerin-D5w Pmx 50 8.4 152.4 135.7 mg In Dextrose/Water 1 250ml.bag @ 20 MCG/MIN 6 mls/hr IV .Q24H ONE Rx#: [id number] Other: Weight 127.006 kg Results CBC & Chem 7: 09/12/20 17:45 09/12/20 17:45 Labs: Abnormal Lab Results - Last 24 Hours (Table) 09/12/20 09/12/20 09/12/20 Range/Units 17:45 17:45 17:45 D-Dimer 1.61 H (<0.60) mg/L FEU Sodium 136 L (137-145) mmol/L Chloride 109 H (98-107) mmol/L BUN 41 H (9-20) mg/dL Creatinine 2.91 H (0.66-1.25) mg/dL Glucose 187 H (74-99) mg/dL Troponin I 0.043 H* (0.000-0.034) ng/mL Total Protein 5.5 L (6.3-8.2) g/dL Albumin 2.8 L (3.5-5.0) g/dL
[2020-09-13] MEDS: SODIUM CHLORIDE 0.9% 1,000 ML IV SCH (21:00)
[2020-09-14] MEDS: METOCLOPRAMIDE 10 MG TAB PO SCH ×4 (05:06→20:41)
[2020-09-14] MEDS: hydrALAZINE HCL 50 MG TAB PO SCH ×3 (05:06→17:23)
[2020-09-14] MEDS: carvediloL 12.5 MG TAB PO SCH ×2 (05:06→17:23)
[2020-09-14 06:22] LABS: Glucose,Whole Blood 106 mg/dL (75-99)
[2020-09-14] MEDS: cloNIDine HCL 0.2 MG TAB PO SCH (07:44)
[2020-09-14] MEDS: ASPIRIN 81 MG PO SCH (07:44)
[2020-09-14] MEDS: amLODIPine 10 MG TAB PO SCH (07:44)
[2020-09-14] MEDS: ISOSORBIDE MONONITRATE ER 30 MG TAB.ER.24H PO SCH (07:44)
[2020-09-14] MEDS: LOSARTAN 50 MG TAB PO SCH (07:45)
[2020-09-14] MEDS: FUROSEMIDE 10 MG/ML 4 ML VIAL IV SCH (07:45)
[2020-09-14 09:23] LABS: Calcium 8.4 mg/dL (8.4-10.2); Potassium 3.7 mmol/L (3.5-5.1)
--- NOTE | 2020-09-14 10:26 | P.NPCON ---
History of Present Illness - Reason for Consult acute renal failure, chronic renal failure - History of Present Illness Reason for consultation: chronic kidney disease History of present illness: Patient is a 55-year-old male seen in consultation for chronic kidney disease. Patient has chronic kidney disease stage IV with baseline creatinine in the range of 3-3.5. Creatinine was 2.9 as of September 12 and is up to 3.3 this morning. Patient presented to the hospital with shortness of breath as well as worsening edema. Patient states he is skin about 30 pounds in the last month and a half. Patient states he's been compliant with his medications at home. He denies eating salty foods. Denies excessive drinking. He has been voiding. No hematuria or dysuria. He's been having episodes of vomiting the last few days. No chest pain. He is currently on IV Lasix 40 mg twice daily. States he's not urinating much. His weight has been stable this admission. Denies use of nonsteroidals. Blood pressure a little on the higher side. Afebrile. No fever or chills. Echocardiogram from last admission revealed ejection fraction of 45-50% with mild to moderate tricuspid regurgitation and pulmonary hypertension. Patient's blood pressure was over 200 systolic on admission and he was maintained on nitro drip. Now on oral antihypertensives. Blood pressure in the systolic 150s to 160s. Vital signs are stable. General: The patient appeared well nourished and normally developed. HEENT: Head exam is unremarkable. Neck is without jugular venous distension. LUNGS: Breath sounds decreased. HEART: Rate and Rhythm are regular. ABDOMEN: Soft, nontender. EXTREMITITES: 2+ edema. Past Medical History Past Medical History: CVA/TIA, Diabetes Mellitus, Hypertension Additional Past Medical History / Comment(s): right hand/leg weakness d/t CVA History of Any Multi-Drug Resistant Organisms: None Reported Past Surgical History: Adenoidectomy, Appendectomy, Tonsillectomy Past Psychological History: No Psychological Hx Reported Smoking Status: Never smoker Past Alcohol Use History: None Reported Past Drug Use History: None Reported - Past Family History Father Additional Family Medical History / Comment(s): leukemia Mother Family Medical History: Diabetes Mellitus, Hypertension Medications and Allergies Home Medications Medication Instructions Recorded Confirmed Type Aspirin 81 mg PO DAILY chew 07/11/20 09/12/20 Rx Isosorbide Mononitrate ER [Imdur] 30 mg PO DAILY #30 tab.er.24h 07/11/20 09/12/20 Rx carvediloL [Coreg*] 12.5 mg PO BID-W/MEALS #60 tab 07/11/20 09/12/20 Rx Furosemide [Lasix] 40 mg PO DAILY 09/12/20 09/12/20 History Losartan Potassium 100 mg PO DAILY 09/12/20 09/12/20 History hydrALAZINE HCL [Apresoline] 100 mg PO AC-TID 09/12/20 09/12/20 History Allergies Allergy/AdvReac Type Severity Reaction Status Date / Time Penicillins Allergy Swelling Verified 09/12/20 18:05 Physical Exam Vitals: Vital Signs Temp Pulse Pulse Resp BP BP Pulse Ox 09/14/20 07:42 98.3 F 60 16 167/78 97 09/14/20 07:40 60 16 09/14/20 04:00 60 18 160/90 94 L 09/14/20 01:18 58 L 18 09/14/20 00:00 98 F 58 L 18 162/84 95 09/13/20 20:00 98.4 F 66 18 151/78 95 09/13/20 18:20 63 18 144/72 95 09/13/20 16:23 98 F 66 18 168/98 97 09/13/20 16:21 98 F 66 18 177/81 97 09/13/20 15:46 66 18 168/98 95 09/13/20 14:31 62 18 156/79 95 09/13/20 13:36 62 18 147/79 95 09/13/20 12:41 62 18 170/89 95 09/13/20 12:05 68 18 173/88 95 09/13/20 11:29 66 18 150/75 95 09/13/20 10:30 67 18 153/91 95 09/13/20 10:15 62 18 148/74 96 Intake and Output 09/13/20 09/14/20 09/14/20 22:59 06:59 14:59 Intake Total 840 120 240 Output Total 350 Balance 840 -230 240 Intake: Oral 840 120 240 Output: Urine 350 Other: Voiding Method Urinal Weight 127.006 kg 127.3 kg Results - Lab Results Most recent lab results Calcium 8.4 mg/dL (8.4-10.2) 09/14/20 08:23 09/12/20 17:45 09/14/20 08:23 Assessment and Plan Plan: Assessment: 1. Chronic kidney disease stage IV secondary to cardiorenal syndrome and diabetic kidney disease. Baseline creatinine 3-3.5. Serologies from previous admission were negative. 2. Acute on chronic systolic CHF with ejection fraction of 45-50% with mild to moderate tricuspid regurgitation and pulmonary hypertension. 3. Volume overload. 4. Hypertensive emergency. Status post nitro drip. Partially volume sensitive. 5. Diabetes mellitus. Plan: Start Lasix drip at 10 mL an hour. Low-salt diet and 1500 mL fluid restriction. Increase dose of clonidine. Strict I's and O's. Daily weights. Continue to monitor renal function and urine output. Thank you for the consultation. I will continue to follow the patient with you during his hospital stay.
--- NOTE | 2020-09-14 10:42 | CONS ---
CONSULTATION DATE OF DICTATION: September 14, 2020 REASON FOR CONSULTATION: Nausea and vomiting. HISTORY OF PRESENT ILLNESS: The patient is a 55-year-old pleasant white male who was admitted to the hospital with nausea and vomiting for the last 3 weeks duration. The patient states that about 3 weeks ago, he went to see Dr. Fuentes and was noted to have uncontrolled hypertension and his hydralazine dose was increased. Since then he has been having intermittent episodes of nausea, vomiting that usually happens in the morning when he wakes up and the rest of the day he does well. He has occasional right-sided abdominal pain, also. He reports no heartburn. He does complain of epigastric fullness, some bloating and occasional heartburn. He usually has this emesis only in the morning. No nocturnal symptoms. No recent weight loss. No significant change in his bowel habits. He usually has chronic constipation. No prior history of peptic ulcer disease or recent NSAID use. PAST MEDICAL HISTORY: Significant for a history of CVA in the past, hypertension, hyperlipidemia, stroke, history of CVA, diabetes mellitus, hypertension, chronic kidney disease. PAST SURGICAL HISTORY: Adenoidectomy, appendectomy, tonsillectomy, colonoscopy more than 10 years ago. MEDICATIONS: Medications at home aspirin, Imdur, Coreg, Lasix, hydralazine, losartan. ALLERGIES: PENICILLIN. SOCIAL HISTORY: No smoking. No alcohol use. FAMILY HISTORY: Father had leukemia. Mother had diabetes mellitus and hypertension. REVIEW OF SYSTEMS: CARDIOPULMONARY: No chest pain or shortness of breath. GENITOURINARY: No dysuria or hematuria. MUSCULOSKELETAL unremarkable. SKIN unremarkable. ENDOCRINE unremarkable. PSYCHIATRIC: Unremarkable. NEUROLOGICAL: Unremarkable. ENT/vision unremarkable. CONSTITUTIONAL: No recent weight loss. No fever, chills, night sweats. PHYSICAL EXAMINATION: He appears comfortable. No apparent distress. VITAL SIGNS: Stable. Blood pressure is 167/78, pulse is 60, temperature 98.3. HEENT examination unremarkable. Conjunctivae pink. Sclerae anicteric. Oral cavity no lesions. Neck no JVD or lymph node enlargement. Chest was clear to auscultation. ABDOMEN: Soft. There was very minimal tenderness in the right lower quadrant area at the site of scar from previous appendectomy. Rest of the abdomen was benign. Extremities: No pedal edema. Neuro: He is alert and oriented x3. No focal deficits. LABS: WBC 6.4, hemoglobin 15.1, platelets normal. Basic metabolic panel showed a BUN of 41, creatinine 2.91. Troponin 0.043. Bernal virus PCR negative. IMPRESSION: 1. Intermittent nausea and vomiting for the last 3 weeks duration most likely medication-related. The patient thinks that symptoms started after the dose of hydralazine was increased on an outpatient basis by Dr. Fuentes about 3 weeks ago. His last episode was of emesis was yesterday. This morning he is doing better. Doubt we are dealing with any upper gastrointestinal pathology at the present time, but cannot rule out component of gastroesophageal reflux disease. 2. Uncontrolled hypertension which is improving. 3. Longstanding history of diabetes mellitus. 4. History of cerebrovascular accident. RECOMMENDATIONS: 1. Start him on Protonix 40 mg daily. 2. Advised the patient to discuss with Dr. Soni regarding decreasing the dose of hydralazine. 3. Small frequent meals. 4. If he continues to have persistent symptoms, he may benefit from upper endoscopy on an outpatient basis. The plan was discussed with him. He is agreeable to it. Thank you for this consultation. MMODL / LUCIEN: [id number] /
--- NOTE | 2020-09-14 11:03 | OP ---
OPERATIVE REPORT PROCEDURE: Left thoracentesis. PREOP DIAGNOSIS: Left pleural effusion. POSTOP DIAGNOSIS: Left pleural effusion. OPERATORS: Dr. Jeronimo and Dr. Clifford. DESCRIPTION OF PROCEDURE: There was informed consent and a universal timeout. The posterior left chest was marked by ultrasound. An appropriate fluid pocket was identified and marked. Patient was positioned, prepped and draped in usual sterile fashion. Lidocaine was used to anesthetize the area. A Thoracentesis catheter was introduced into the pleural space and fluid was removed. Blood loss was none. A chest x-ray was ordered to evaluate for pneumothorax. Total Fluid Removed: 1850 mL. Color of Fluid: Straw-colored. Fluid was sent for appropriate laboratory tests. Patient tolerated the procedure well and there were no complications. There was no immediate complication. A chest x-ray will be ordered to rule out pneumothorax. The fluid was sent for analysis. There was no immediate complication. The patient tolerated the procedure well. MMODL / IJN: [id number] /
--- NOTE | 2020-09-14 11:08 | XR ---
EXAMINATION TYPE: XR chest 1V portable DATE OF EXAM: 09/14/2020 Comparison: 09/12/2020 Clinical History: 55-year-old male S/P left thoracentesis Findings: Heart mildly enlarged. Diffuse interstitial opacity. Small bilateral pleural effusions with bibasilar opacity. The effusion on the left is decreased in the interval. Impression: Interstitial density and small pleural effusions with adjacent atelectasis and/or consolidation. Maty elate for CHF with pulmonary vascular congestion. Effusion on the left is decreased in the interval. Effusion on the right appears increased.
--- NOTE | 2020-09-14 11:31 | P.PN ---
Subjective Progress Note Date: 09/14/20 CHIEF COMPLAINT: Hypertensive emergency HISTORY OF PRESENT ILLNESS: This is a 55 -year old male with a past medical history significant for hypertension, CVA, CHF and obesity. Patient follows in the office with Dr. Wood. We have been asked to see the patient in consultation for hypertensive emergency. Patient examined this morning at the bedside in the emergency room. Patient reports he has been having increasing shortness of breath over the past week and increasing edema to his lower 70s. Patient states he usually is able to lay flat in bed with 2 pillows without feeling short of breath. However over the past week he has been having to sit up or sleep in the chair due to shortness of breath. He reports weight gain of about 10 pounds in the past week. He also reports nausea and vomiting over the past week. He states he has been compliant with all his medications however due to his nausea and vomiting he's not sure how much of his medications "stayed down". The patient was hypertensive upon presentation to the emergency room with a pressure of 203/99. He was started on a nitro drip. It is noted the patient was hospitalized in June 2020 secondary to CHF. Patient had a large pleural effusion at that time and underwent thoracentesis by pulmonary services. Echocardiogram at that time revealed ejection fraction 45-50%, mild mitral regurgitation, mild to moderate tricuspid regurgitation, and pulmonary hypertension. 09/14/2020 Patient examined this morning at the bedside. Patient states his shortness of breath is improved a little bit compared to yesterday. He is going to have a thoracentesis today per pulmonary. He remains on IV Lasix. Creatinine 3.33 today up from 2.91 yesterday. Blood pressure remains elevated with a systolic in the 160s. His nitro drip has been weaned off. PHYSICAL EXAM: VITAL SIGNS: Reviewed. GENERAL: Well-developed in no acute distress. HEENT: Head is normocephalic. Pupils are equal, round. Sclerae anicteric. Mucous membranes of the mouth are moist. Neck supple. No JVD or thyromegaly LUNGS: Respirations even and unlabored. Lungs diminished. HEART: Regular rate and rhythm. S1 and S2 heard. ABDOMEN: Soft. Nondistended. Mild tenderness of right lower quadrant. EXTREMITIES: Normal range of motion. No clubbing or cyanosis. Peripheral pulses intact. 2+ bilateral lower extremity edema NEUROLOGIC: Awake and alert. Oriented x 3. ASSESSMENT: Shortness of breath Large left pleural effusion Acute exacerbation of chronic systolic congestive heart failure, EF 45%, BNP 44,000 Hypertension, uncontrolled Nausea and vomiting Diabetes mellitus, type II History of CVA Acute on chronic kidney disease PLAN: Pulmonary following. Patient scheduled to undergo thoracentesis today. Continue current cardiac medications Nephrology has been consulted and started the patient on a Lasix drip. Monitor kidney function Patient reports he has not urinated all day at the time of my examination. Nursing to bladder scan patient to rule out any urinary retention Add Cardura 2mg daily per Dr. George Daily weights Accurate I&O Further recommendations pending patient's course Nurse practitioner note has been reviewed by physician. Signing provider agrees with the documented findings, assessment, and plan of care. Objective - Vital Signs Vital signs: Vital Signs Temp 98.3 F 09/14/20 07:42 Pulse 60 09/14/20 07:42 Resp 16 09/14/20 07:42 BP 167/78 09/14/20 07:42 Pulse Ox 97 09/14/20 07:42 Intake & Output 09/13/20 09/14/20 09/14/20 18:59 06:59 18:59 Intake Total 975.7 120 240 Output Total 350 250 Balance 975.7 -230 -10 Weight 127.006 kg 127.3 kg Intake: Intake, IV Titration 135.7 Amount Nitroglycerin-D5w Pmx 50 135.7 mg In Dextrose/Water 1 250ml.bag @ 20 MCG/MIN 6 mls/hr IV .Q24H ONE Rx#: [id number] Oral 840 120 240 Output: Urine 350 250 Other: Voiding Method Urinal - Labs CBC & Chem 7: 09/12/20 17:45 09/14/20 08:23 Labs: Abnormal Lab Results - Last 24 Hours (Table) 09/13/20 09/13/20 09/14/20 Range/Units 16:37 19:50 06:21 Sodium (137-145) mmol/L BUN (9-20) mg/dL Creatinine (0.66-1.25) mg/dL Glucose (74-99) mg/dL POC Glucose (mg/dL) 110 H 140 H 106 H (75-99) mg/dL 09/14/20 Range/Units 08:23 Sodium 136 L (137-145) mmol/L BUN 40 H (9-20) mg/dL Creatinine 3.33 H (0.66-1.25) mg/dL Glucose 164 H (74-99) mg/dL POC Glucose (mg/dL) (75-99) mg/dL
[2020-09-14 11:56] LABS: Glucose,Whole Blood 144 mg/dL (75-99)
[2020-09-14] MEDS: PANTOPRAZOLE 40 MG TABLET PO SCH (12:41)
[2020-09-14] MEDS: DOXAZOSIN 2 MG TAB PO SCH (12:42)
[2020-09-14] MEDS: FUROSEMIDE 100 MG in SODIUM CHLORIDE 0.9% 90 ML IV SCH ×2 (14:32→23:58)
--- NOTE | 2020-09-14 15:19 | P.GSCN ---
History of Present Illness Consult date: 09/14/20 Reason for Consult: Urinary retention History of present illness: The patient is a 55-year-old male admitted through the emergency room yesterday for evaluation of increasing shortness of breath, edema and uncontrolled hypertension. He has a long history of obesity and diabetes mellitus. He was admitted in 06/2020 with congestive heart failure and at that time his creatinine was 2.61. His renal failure was felt to be secondary to cardiorenal syndrome. He required thoracentesis due to a pleural effusion. He says that an attempt was made to insert a catheter at that time in the emergency room but this was unsuccessful. Since that time the patient says that he has gained approximately 30 pounds over the last 4-6 weeks. He is developed increasing shortness of breath and edema. On admission his BUN/creatinine were 40/3.3. He was initially treated with IV nitroglycerin to control his blood pressure and oral furosemide. He underwent left thoracentesis today which drained 1850 cc. The patient has had difficulty voiding and apparently was unable to void for a prolonged period of time earlier today. He was bladder scanned earlier and had over 400 cc in his bladder. Due to his edema, intravenous furosemide will be given. Attempts were made to insert a catheter to monitor the patient's urine output but this proved unsuccessful after several attempts. I was asked to see the patient for further evaluation. The patient denies any previous history of urinary retention. He describes a very slow urinary flow which is described as only a trickle. He frequently has postvoid dribbling and sensations of incomplete bladder emptying. Despite this he says he usually voids every 3-5 hours during the day and 3 or 4 times at night. He says he usually voids small amounts at night. He denies any previous history of urinary tract infection, gross hematuria or urolithiasis. A renal ultrasound on 07/03/2020 showed no evidence of hydronephrosis. Review of Systems - Constitutional Reports weight gain - Cardiovascular Reports edema, Reports high blood pressure, Reports leg edema, Reports shortness of breath, Denies chest pain, Denies irregular heart beat - Respiratory Denies cough, Denies wheezing - Gastrointestinal Denies abdominal pain, Denies constipation - Genitourinary Reports as per HPI Past Medical History Past Medical History: CVA/TIA, Diabetes Mellitus, Hypertension Additional Past Medical History / Comment(s): right hand/leg weakness d/t CVA. Stage IV chronic kidney disease History of Any Multi-Drug Resistant Organisms: None Reported Past Surgical History: Adenoidectomy, Appendectomy, Tonsillectomy Past Psychological History: No Psychological Hx Reported Smoking Status: Never smoker Past Alcohol Use History: None Reported Past Drug Use History: None Reported - Past Family History Father Additional Family Medical History / Comment(s): leukemia Mother Family Medical History: Diabetes Mellitus, Hypertension Medications and Allergies Home Medications Medication Instructions Recorded Confirmed Type Aspirin 81 mg PO DAILY chew 07/11/20 09/12/20 Rx Isosorbide Mononitrate ER [Imdur] 30 mg PO DAILY #30 tab.er.24h 07/11/20 09/12/20 Rx carvediloL [Coreg*] 12.5 mg PO BID-W/MEALS #60 tab 07/11/20 09/12/20 Rx Furosemide [Lasix] 40 mg PO DAILY 09/12/20 09/12/20 History Losartan Potassium 100 mg PO DAILY 09/12/20 09/12/20 History hydrALAZINE HCL [Apresoline] 100 mg PO AC-TID 09/12/20 09/12/20 History Allergies Allergy/AdvReac Type Severity Reaction Status Date / Time Penicillins Allergy Swelling Verified 09/12/20 18:05 Surgical - Exam Vital Signs Temp Pulse Resp BP Pulse Ox 98.5 F 63 18 203/99 97 09/12/20 17:25 09/12/20 17:25 09/12/20 17:25 09/12/20 17:25 09/12/20 17:25 - General well developed, no distress, obese - ENT no hearing loss - Neck no masses, no lymphadectomy - Respiratory normal respiratory effort - Abdomen Abdomen: soft, no tender, no organomegaly Hernia: none - Genitourinary testicles non-tender, other (Severe phimosis) Results - Labs 09/12/20 17:45 09/14/20 08:23 Abnormal Lab Results - Last 24 Hours (Table) 09/13/20 09/13/20 09/14/20 Range/Units 16:37 19:50 06:21 Sodium (137-145) mmol/L BUN (9-20) mg/dL Creatinine (0.66-1.25) mg/dL Glucose (74-99) mg/dL POC Glucose (mg/dL) 110 H 140 H 106 H (75-99) mg/dL 09/14/20 09/14/20 Range/Units 08:23 11:42 Sodium 136 L (137-145) mmol/L BUN 40 H (9-20) mg/dL Creatinine 3.33 H (0.66-1.25) mg/dL Glucose 164 H (74-99) mg/dL POC Glucose (mg/dL) 144 H (75-99) mg/dL Diabetes panel 09/14/20 Range/Units 08:23 Sodium 136 L (137-145) mmol/L Potassium 3.7 (3.5-5.1) mmol/L Chloride 107 (98-107) mmol/L Carbon Dioxide 23 (22-30) mmol/L BUN 40 H (9-20) mg/dL Creatinine 3.33 H (0.66-1.25) mg/dL Glucose 164 H (74-99) mg/dL Calcium 8.4 (8.4-10.2) mg/dL Calcium panel 09/14/20 Range/Units 08:23 Calcium 8.4 (8.4-10.2) mg/dL Pituitary panel 09/14/20 Range/Units 08:23 Sodium 136 L (137-145) mmol/L Potassium 3.7 (3.5-5.1) mmol/L Chloride 107 (98-107) mmol/L Carbon Dioxide 23 (22-30) mmol/L BUN 40 H (9-20) mg/dL Creatinine 3.33 H (0.66-1.25) mg/dL Glucose 164 H (74-99) mg/dL Calcium 8.4 (8.4-10.2) mg/dL Adrenal panel 09/14/20 Range/Units 08:23 Sodium 136 L (137-145) mmol/L Potassium 3.7 (3.5-5.1) mmol/L Chloride 107 (98-107) mmol/L Carbon Dioxide 23 (22-30) mmol/L BUN 40 H (9-20) mg/dL Creatinine 3.33 H (0.66-1.25) mg/dL Glucose 164 H (74-99) mg/dL Calcium 8.4 (8.4-10.2) mg/dL Assessment and Plan (1) Urinary retention Narrative/Plan: The source of the patient's urinary retention is not clear. The inability to insert a catheter in the emergency room in 06/2020 suggests an underlying urethral stricture. I will attempt to insert a 14 [place] coud catheter. If this is unsuccessful then the urethra may require dilation. Current Visit: Yes Status: Acute Code(s): R33.9 - RETENTION OF URINE, UNSPECIFIED SNOMED Code(s): 693339704
--- NOTE | 2020-09-14 15:27 | P.OP ---
Date of Procedure: 09/14/20 Preoperative Diagnosis: Urinary retention Postoperative Diagnosis: Urinary retention secondry to urethral stricture(s) Procedure(s) Performed: Dilation of urethral and placement of urethral catheter Anesthesia: none Disposition: no change Indications for Procedure: The patient is a 55-year-old male with a history of congestive heart failure who is currently being treated with diuretics. Attempts at placement of a Russell catheter were unsuccessful. I was asked to see the patient with the purpose of placement of a catheter. Description of Procedure: Patient was placed supine on his hospital bed. The penis was prepped with Betadine solution. The patient has severe phimosis and it was impossible to visualize the urethral meatus. I was unable to blindly pass the tip of a 14 [place] coud catheter into the urethral meatus. I was eventually able to pass a 0.035 straight Zip wire through the meatus and into the bladder. A 14 [place] coud catheter was modified with a slit at its tip and I advanced the catheter over the Glidewire. The catheter met obstruction in the region of the bulbous urethra and would not advance further. I initially attempted to pass a 4 [place] straight filiform alongside the Glidewire and into the urethra but this proved impossible. A 14 [place] ureteral reentry sheath with 12 [place] obturator was successfully passed over the Glidewire through the urethra and into the bladder. This appeared to adequately dilate the apparent urethral stricture. A 14 [place] coud catheter was then advanced over the Glidewire and with difficulty it was pushed beyond the stricture and into the bladder. Approximately 650 cc of clear urine drained. Patient tolerated procedure well. The patient's catheter should be left in place for several days prior to removal. He will eventually require circumcision and cystoscopy with possible visual internal urethrotomy for treatment of his stricture but this will need to be delayed until he is medically stable.
[2020-09-14 15:49] LABS: Appearance,BF Clear; Color,BF Yellow; Nucleated Cells, Body Fluid 45 /uL; RBC, Body Fluid 31 /uL
[2020-09-14 15:51] LABS: Mononuclear WBC,Body Fluid 88 %; Polynuclear WBC,Body Fluid 12 %; Total Cells Counted,Body Fluid 100
--- NOTE | 2020-09-14 16:33 | PN ---
PROGRESS NOTE PULMONARY/CRITICAL CARE PROGRESS NOTE: DATE OF SERVICE: September 14, 2020. This is a 55-year-old gentleman who we saw in the emergency room yesterday. He came in with shortness of breath, heart failure, hypertensive urgency/emergency. Initially, he was on IV nitroglycerin. He was scheduled to go to the ICU, but we improved on oral medication. His nitroglycerin was weaned off. The patient had a large left pleural effusion. Today we did a left-sided thoracentesis, 1.85 L was removed. The patient is feeling much better. His blood pressure is under much better control. He promises that he has been compliant with his medications. PHYSICAL EXAMINATION: VITAL SIGNS: Currently, his temperature is 98.3, heart rate 53, respiratory rate 16, blood pressure 142/74, mean 96, room air saturation 96-98%. Appears in no acute distress. HEENT: Examination is grossly unremarkable. NECK: Supple, full range of motion. No adenopathy. Neck veins are flat. CARDIOVASCULAR: Examination reveals regular rhythm and rate. Heart rate 60 beats per minute. Heart sounds are distant. S1, S2 normal. LUNGS: Reveal bibasilar crackles. There is dullness at the left base. No wheezes. ABDOMEN: Soft, bowel sounds are heard. EXTREMITIES are intact. No cyanosis, clubbing, or significant edema. SKIN: Without rash. NEUROLOGIC: Examination is nonfocal. LABS: Reviewed. Current labs include a sodium 136, potassium 3.7, chloride 107, CO2 23, anion gap is 6. BUN and creatinine were 40 and 3.33. Prior BUN and creatinine were 41 and 2.91. Microbiology is negative. Chest x-ray today done after the thoracentesis shows significant improvement in the left-sided effusion. There was no pneumothorax. CURRENT MEDICATIONS: Reviewed. The patient is on Norvasc, aspirin, Coreg, clonidine, Cardura, Lasix, hydralazine, Imdur, losartan, Reglan, Narcan, Protonix, and saline at 20 mL an hour. ASSESSMENT: 1. Hypertensive urgency/emergency with congestive heart failure. 2. Hypertensive nephropathy with fibrinoid necrosis and worsening renal function. 3. Previous history of similar episodes, requiring left-sided thoracentesis. 4. Left pleural effusion, status post thoracentesis on September 14, 2020 with 1.85 L removed. 5. History of hypertension. 6. Previous history of cerebrovascular accident with right-sided weakness. 7. Diabetes mellitus. PLAN: The patient's Lasix was increased. He underwent a left-sided thoracentesis today. He tolerated the procedure well. We were able to remove 1.85 L of straw-colored fluid from the left pleural space. Chest x-ray shows significant improvement. There is no pneumothorax. Additional recommendations and suggestions are forthcoming. Prognosis is guarded. MMODL / IJN: [id number] /
[2020-09-14 17:12] LABS: Glucose,Whole Blood 169 mg/dL (75-99)
[2020-09-14] MEDS: cloNIDine HCL 0.1 MG TAB PO SCH ×2 (17:22→20:41)
[2020-09-14 18:04] LABS: Glucose, BF Source Thoracentesis Fluid; Glucose, Body Fluid 158 mg/dL; LDH, Body Fluid Source Thoracentesis Fluid; Total Protein, Body Fluid 1160 mg/dL
[2020-09-14 18:52] LABS: Magnesium 2.2 mg/dL (1.6-2.3); Potassium 3.9 mmol/L (3.5-5.1)
[2020-09-14 20:02] LABS: Glucose,Whole Blood 183 mg/dL (75-99)
[2020-09-14] MEDS: SODIUM CHLORIDE 0.9% 1,000 ML IV SCH (20:29)
--- NOTE | 2020-09-15 00:11 | P.PN ---
Progress Note - Text Progress Note Date: 09/15/20 Chief Complaint: Nausea vomiting History of presenting complaint: This is a pleasant 55-year-old patient of Dr. Fuentes. Patient with baseline right-sided weakness from prior stroke does use a cane. Also has obstructive sleep apnea. Patient was in the hospital and of June. Admitted with-acute CHF exacerbation to EF of 45%, large left-sided thoracentesis, acute kidney injury cardiorenal. Chronic stable medical conditions include right-sided weakness from prior stroke, diabetes, hypertension. Patient now presents for having nausea vomiting for 3 weeks. Since he did go to see a doctor to some change in medication not sure which. No fever no chills. Has a bowel movement every to 3 days. No abdominal pain. Has been taking his medicines regularly up to recently. Also having increasing lower extremity edema. Tired rundown. Patient had uncontrolled blood pressures in the ER. Put on IV nitro drip. Admitted with-hypertensive urgency, CHF exacerbation, fluid overload, uncontrolled nausea vomiting. September [id number] thoracentesis 1.8 L of fluid removed Today-breathing better. Put on a Lasix drip. Appetite better. Nausea vomiting better. Blood pressure better controlled. Left-sided thoracentesis is done today. Review of systems: Was done for constitutional, cardiovascular, GI, pulmonary. relevant finding as above Active Medications Amlodipine Besylate (Amlodipine 10 Mg Tab) 10 mg PO DAILY [facility] Last Admin: 09/14/20 07:44 Dose: 10 mg Documented by: Aspirin (Aspirin 81 Mg) 81 mg PO DAILY [facility] Last Admin: 09/14/20 07:44 Dose: 81 mg Documented by: Carvedilol (Carvedilol 6.25 Mg Tab) 6.25 mg PO BID-W/MEALS [facility] Clonidine (Clonidine Hcl 0.1 Mg Tab) 0.3 mg PO TID [facility] Last Admin: 09/14/20 20:41 Dose: 0.3 mg Documented by: Doxazosin Mesylate (Doxazosin 2 Mg Tab) 2 mg PO DAILY [facility] Last Admin: 09/14/20 12:42 Dose: 2 mg Documented by: Hydralazine HCl (Hydralazine Hcl 50 Mg Tab) 100 mg PO AC-TID [facility] Last Admin: 09/14/20 17:23 Dose: 100 mg Documented by: Sodium Chloride (Saline 0.9%) 1,000 mls @ 20 mls/hr IV .Q24H [facility] Last Admin: 09/14/20 20:29 Dose: Not Given Documented by: Furosemide 100 mg/ Sodium (Chloride) 100 mls @ 10 mls/hr IV .Q10H [facility] Last Admin: 09/14/20 23:58 Dose: Not Given Documented by: Isosorbide Mononitrate (Isosorbide Mononitrate Er 30 Mg Tab.Er.24h) 30 mg PO DAILY [facility] Last Admin: 09/14/20 07:44 Dose: 30 mg Documented by: Losartan Potassium (Losartan 50 Mg Tab) 100 mg PO DAILY [facility] Last Admin: 09/14/20 07:45 Dose: 100 mg Documented by: Metoclopramide HCl (Metoclopramide 10 Mg Tab) 10 mg PO ACHS [facility] Last Admin: 09/14/20 20:41 Dose: 10 mg Documented by: Naloxone HCl (Naloxone 0.4 Mg/Ml 1 Ml Vial) 0.2 mg IV Q2M PRN PRN Reason: Opioid Reversal Pantoprazole Sodium (Pantoprazole 40 Mg Tablet) 40 mg PO AC-BRKFST [facility] Last Admin: 09/14/20 12:41 Dose: 40 mg Documented by: Physical examination: VITAL SIGNS: 98.3, 60, 16, 142/74, 96% room air GENERAL: A planning in bed, appears more comfortable EYES: Pupils equal. Conjunctiva normal. HEENT: External appearance of nose and ears normal, oral cavity -dry NECK: JVD unable to assess- masses not palpable. HEART: First and second heart sounds are normal; edema present. LUNGS: Respiratory rate increased; decreased breath sounds at bases. ABDOMEN: Soft, nontender, liver spleen not palpable, no masses palpable. PSYCH: Alert and oriented x3; mood and affect less anxious NEUROLOGICAL: Cranial nerves grossly intact; no facial asymmetry, chronic right-sided weakness INVESTIGATIONS, reviewed in the clinical context: September 14: Potassium 3.7 bun 40 creatinine 3.33 White count 6.4 hemoglobin 15.1 platelets 161 potassium 3.7 bun 41 and creatinine 2.91 Troponin I 0.043 albumin 2.8 Coronavirus P/Cr-not detected EKG tracing personally reviewed by me-right bundle-branch block, some ST segment changes Chest x-ray film personally reviewed by [id number] infiltrate/effusion Previous testing: Bun 62 creatinine 3.37 on July 11 2-D echocardiogram [May 2020] EF 45-50% some tricuspid regurgitation and some pulmonary hypertension inferolateral hypokinesis of the wall Assessment: -Hypertensive urgency from patient not be able to take his medications for last 3 weeks from nausea vomiting..-Improving -Acute congestive heart failure exacerbation from systolic dysfunction EF 45%-on Lasix drip -Large left pleural effusion from CHF, status post thoracentesis, 1100 mL back in end of June now with possible recurrence-1.8 L of fluid removed -Morbid obesity BMI 40.2 -Right hemiparesis from prior stroke -Diabetes mellitus type 2 -Essential hypertension -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 Possible diabetic gastroparesis. No clinical evidence of acute abdomen -Troponin leak from hemodynamic mismatch. No clinical evidence of acute coronary syndrome. Plan: Care was discussed with the patient. Continue Lasix drip. Had left-sided thoracentesis done today. Follow with cardiology and pulmonary. Follow labs closely.
[2020-09-15 06:12] LABS: Glucose,Whole Blood 122 mg/dL (75-99)
[2020-09-15] MEDS: carvediloL 6.25 MG TAB PO SCH ×2 (06:42→17:55)
[2020-09-15] MEDS: METOCLOPRAMIDE 10 MG TAB PO SCH ×3 (06:42→12:02)
[2020-09-15] MEDS: hydrALAZINE HCL 50 MG TAB PO SCH ×4 (06:42→17:54)
[2020-09-15] MEDS: PANTOPRAZOLE 40 MG TABLET PO SCH (06:42)
[2020-09-15] MEDS: amLODIPine 10 MG TAB PO SCH (08:48)
[2020-09-15] MEDS: ASPIRIN 81 MG PO SCH (08:48)
[2020-09-15] MEDS: cloNIDine HCL 0.1 MG TAB PO SCH ×3 (08:49→20:33)
[2020-09-15] MEDS: LOSARTAN 50 MG TAB PO SCH (08:49)
[2020-09-15] MEDS: ISOSORBIDE MONONITRATE ER 30 MG TAB.ER.24H PO SCH (08:49)
[2020-09-15] MEDS: DOXAZOSIN 2 MG TAB PO SCH (08:50)
--- NOTE | 2020-09-15 08:52 | P.PN ---
Subjective Progress Note Date: 09/15/20 55-year-old male patient who came into the emergency department because of shortness of breath and congestion heart failure attributed to be related to hypertensive urgency/emergency. He was started on IV nitroglycerin. He was supposed to go initiated intensive care unit. Improved with oral medication for blood pressure control. He was taken off the nitroglycerin drip. The patient had a large left-sided pleural effusion. Left-sided thoracentesis was done a total of 1.85 L was removed from the left lung and the patient clinically improved. The patient on room air oxygen was pulse oxing above 95%. BP is was under better control. A she has signs of volume overload and the patient is currently on Lasix drip at 10 mg an hour. The patient had difficulties with urinary retention. Urology was consulted and the patient had a urethral catheter placed by urology. Suspect underlying urethral stricture. No evidence of an hydronephrosis. Renal function is chronically impaired and the patient's chronic stage IV kidney disease/hypertensive nephrosclerosis. Objective - Vital Signs Vital signs: Vital Signs Temp 98 F 09/15/20 00:00 Pulse 56 L 09/15/20 03:09 Resp 16 09/15/20 03:09 BP 148/80 09/15/20 03:09 Pulse Ox 98 09/15/20 03:09 Intake & Output 09/14/20 09/15/20 09/15/20 18:59 06:59 18:59 Intake Total 840 30 Output Total 625 675 Balance 215 -645 Weight 122.8 kg Intake: Intake, IV Titration 30 Amount Furosemide 100 mg In 30 Sodium Chloride 0.9% 90 ml @ 10 MG/HR 10 mls/hr IV .Q10H COUNTS INCLUDE 234 BEDS AT THE [facility] Rx#: [id number] Oral 840 Output: Urine 625 675 Other: Voiding Method Urinal Indwelling Catheter - Exam Gen. appearance the patient's, comfortable likely distress Head exam was generally normal. There was no scleral icterus or corneal arcus. Mucous membranes were moist. Neck was supple and without jugular venous distension, thyromegaly, or carotid bruits. Carotids were easily palpable bilaterally. There was no adenopathy. Lungs were clear to auscultation and percussion, and with normal diaphragmatic excursion. No wheezes or rales were noted. Few crackles in lung bases bilaterally Cardiac exam revealed the PMI to be normally situated and sized. The rhythm was regular and no extrasystoles were noted during several minutes of auscultation. The first and second heart sounds were normal and physiologic splitting of the second heart sound was noted. There were no murmurs, rubs, clicks, or gallops. Abdominal exam revealed normal bowel sounds. The abdomen was soft, non-tender, and without masses, organomegaly, or appreciable enlargement of the abdominal aorta. Examination of the extremities revealed easily palpable radial, femoral and pedal pulses. There was no cyanosis, clubbing or edema. Examination of the skin revealed no evidence of significant rashes, suspicious appearing nevi or other concerning lesions. Neurologically, the patient is awake and alert and the patient does not have any focal neurological deficit. Cranial nerves are essentially intact. - Labs CBC & Chem 7: 09/12/20 17:45 09/14/20 18:20 Labs: Abnormal Lab Results - Last 24 Hours (Table) 09/14/20 09/14/20 09/14/20 Range/Units 08:23 11:42 17:05 Sodium 136 L (137-145) mmol/L BUN 40 H (9-20) mg/dL Creatinine 3.33 H (0.66-1.25) mg/dL Glucose 164 H (74-99) mg/dL POC Glucose (mg/dL) 144 H 169 H (75-99) mg/dL 09/14/20 09/15/20 Range/Units 20:00 06:09 Sodium (137-145) mmol/L BUN (9-20) mg/dL Creatinine (0.66-1.25) mg/dL Glucose (74-99) mg/dL POC Glucose (mg/dL) 183 H 122 H (75-99) mg/dL Microbiology - Last 24 Hours (Table) 09/14/20 10:00 Gram Stain - Preliminary Thoracic Fluid Body Fluid Culture - Preliminary 09/14/20 10:00 Fungal Culture - Preliminary Thoracentesis Fluid 09/14/20 10:00 Acid Fast Bacilli Culture - Preliminary Thoracentesis Fluid Assessment and Plan Plan: 1 acute hypertensive urgency/emergency, with secondary decompensated heart failure, improved 2 large left-sided pleural effusion postthoracentesis on 09/14/2020 with evacuation of 1.85 L of pleural fluid. The pleural fluid is a pollock state based on the protein and LDH criteria. Fluid cytology still pending for now. 3 hypertension 4 hypertensive nephrosclerosis, chronic stage IV kidney disease, the patient has volume overload currently on Lasix drip at 10 mg an hour 5 CVA with some residual right-sided weakness 6 diabetes mellitus 7 urinary retention post Russell catheter insertion by urology. The patient had dilatation of urethral passage and placement of a urethral catheter, consider strictures 7 CHF with systolic dysfunction and diastolic dysfunction. The patient's ejection fraction is around 45-50%. The patient also has severe concentric LVH. The patient has [id number] pulmonary hypertension with a PA pressure of 42. No pericardial effusion. Plan The pleural fluid is a transudate likely secondary to CHF. Continue Lasix drip at 10 mg an hour. Continue blood pressure control with a combination of Coreg 6.25 mg by mouth twice a day and clonidine 0.3 mg 3 times a day and losartan 100 mg by mouth daily. The patient is also on Cardura 2 mg by mouth daily. Continue angios 30 mg by mouth daily. Keep the Russell catheter in place. Monitor renal function.he does have some trace edema in lower extremities bilaterally. He may be able to come off the Lasix drip. This will be discussed with nephrology. The patient is currently on room air oxygen. BP is under better control.
[2020-09-15 09:48] LABS: Calcium 8.1 mg/dL (8.4-10.2); Magnesium 2.1 mg/dL (1.6-2.3); Potassium 3.6 mmol/L (3.5-5.1)
[2020-09-15 11:23] LABS: Glucose,Whole Blood 130 mg/dL (75-99)
[2020-09-15] MEDS: FUROSEMIDE 100 MG in SODIUM CHLORIDE 0.9% 90 ML IV SCH (12:02)
[2020-09-15] MEDS ORDERED: METOCLOPRAMIDE 10 MG TAB PO PRN (13:13)
--- NOTE | 2020-09-15 14:14 | P.PN ---
Subjective Progress Note Date: 09/15/20 Principal diagnosis: Nausea and vomiting, hypertensive urgency The patient is a 55-year-old pleasant white male who was admitted to the hospital with a vomiting for the last 3 weeks duration. He is been noted to have uncontrolled hypertension and recently had his hydralazine dose increase. Since then he has been having intermittent episodes of nausea and vomiting usually in the morning which then subsides. He has been started on Reglan and states he's had no further episodes of nausea or vomiting. Denies any abdominal pain, however does state he has not had a bowel movement in 3-4 days but this is normal for him. Objective - Vital Signs Vital signs: Vital Signs Temp 97.3 F L 09/15/20 08:00 Pulse 63 09/15/20 12:00 Resp 16 09/15/20 12:00 BP 160/86 09/15/20 12:00 Pulse Ox 96 09/15/20 12:00 Intake & Output 09/14/20 09/15/20 09/15/20 18:59 06:59 18:59 Intake Total 840 130 820 Output Total 625 675 2 Balance 215 -545 818 Weight 122.8 kg Intake: Intake, IV Titration 130 Amount Furosemide 100 mg In 130 Sodium Chloride 0.9% 90 ml @ 10 MG/HR 10 mls/hr IV .Q10H [facility] Rx#: [id number] Oral 840 820 Output: Urine 625 675 2 Uretheral (Russell) 2 Other: Voiding Method Urinal Indwelling Catheter - Exam General appearance: The patient is alert, oriented, in no acute distress. Obese. HET: Head is normocephalic and atraumatic. Conjunctiva pink. Sclera anicteric. Neck: Supple without lymphadenopathy. Abdomen: Soft, obese, nontender, nondistended with bowel sounds. No guarding or rigidity. Extremities: Normal skin color and turgor. No pedal edema Neurological: No focal deficits. Alert and oriented 3. - Labs CBC & Chem 7: 09/12/20 17:45 09/15/20 09:05 Labs: Abnormal Lab Results - Last 24 Hours (Table) 09/14/20 09/14/20 09/15/20 Range/Units 17:05 20:00 06:09 Sodium (137-145) mmol/L Chloride (98-107) mmol/L BUN (9-20) mg/dL Creatinine (0.66-1.25) mg/dL Glucose (74-99) mg/dL POC Glucose (mg/dL) 169 H 183 H 122 H (75-99) mg/dL Calcium (8.4-10.2) mg/dL 09/15/20 09/15/20 Range/Units 09:05 11:22 Sodium 135 L (137-145) mmol/L Chloride 109 H (98-107) mmol/L BUN 43 H (9-20) mg/dL Creatinine 3.45 H (0.66-1.25) mg/dL Glucose 155 H (74-99) mg/dL POC Glucose (mg/dL) 130 H (75-99) mg/dL Calcium 8.1 L (8.4-10.2) mg/dL Microbiology - Last 24 Hours (Table) 09/14/20 10:00 Gram Stain - Preliminary Thoracic Fluid Body Fluid Culture - Preliminary 09/14/20 10:00 Fungal Culture - Preliminary Thoracentesis Fluid 09/14/20 10:00 Acid Fast Bacilli Culture - Preliminary Thoracentesis Fluid Assessment and Plan (1) Nausea & vomiting Narrative/Plan: Treatment nausea and vomiting for the last 3 weeks duration most likely medication related. The patient thinks that symptoms started after the dose of hydralazine was increased on an outpatient basis by Dr. Fuentes about 3 weeks ago. His last episode of emesis was 2 days ago. Today he reports no further nausea or vomiting with use of Reglan. Likely we are dealing with an upper gastroi ntestinal pathology at the present time, but cannot rule out component of gastroesophageal reflux disease. Current Visit: Yes Status: Acute Code(s): R11.2 - NAUSEA WITH VOMITING, UNSPECIFIED SNOMED Code(s): 62271584 (2) Hypertension Narrative/Plan: Came in uncontrolled hypertension, improving. Current Visit: No Status: Acute Code(s): I10 - ESSENTIAL (PRIMARY) HY PERTENSION SNOMED Code(s): 48095165 Plan: 1. Continue Protonix 40 mg daily 2. Reglan will be decreased to as needed 3. Medicine team to look at decreasing dose of hydralazine 4. Small frequent meals 5. Supportive care Dr. Armando I agree with the dictator's note, documented as a scribe by Reanna Horne.
--- NOTE | 2020-09-15 14:22 | P.PN ---
Subjective This is a pleasant 55-year-old male past medical history significant for hypertension, chronic systolic heart failure CVA, diabetes mellitus and chronic kidney disease. He follows in the office with Dr. Wood. He is seen and examined resting comfortably laying flat in bed in no acute distress. He is currently maintained taking down Lasix infusion per nephrology. He denies any worsening shortness of breath. He states his breathing feels back to baseline. He has no chest pain, dizziness or palpitations. Blood pressure 160/86 heart rate 63 afebrile maintaining oxygen saturation on room air. Laboratory data reviewed, sodium 135, potassium 3.6, creatinine 3.45 and magnesium 2.1. Currently maintained on Lasix infusion, amlodipine 10 mg daily, aspirin 81 mg daily, carvedilol 6.25 mg twice a day, clonidine 0.3 mg 3 times a day, doxazosin 2 mg daily, hydralazine 100 mg 3 times a day, Imdur 30 mg daily and losartan 100 mg daily. He underwent a thoracentesis yesterday with an thousand 850 mL's of straw-colored fluid removed. He's had 1300cc of urine output in the previous 24 hours. GENERAL: Well-appearing, well-nourished and in no acute distress. NECK: Supple without JVD or thyromegaly. LUNGS: Breath sounds clear to auscultation bilaterally. Respiration equal and unlabored. No wheezes, rales or rhonchi. HEART: Regular rate and rhythm without murmurs, rubs or gallops. S1 and S2 heard. EXTREMITIES: Normal range of motion, bilateral lower extremity 1+ edema. No clubbing or cyanosis. Peripheral pulses intact. ASSESSMENT Acute on chronic systolic heart failure Pleural effusion status post thoracentesis Acute on chronic kidney disease Diabetes mellitus Hypertension PLAN Discontinue heparin infusion and initiated on Lasix 40 mg IV twice a day. Follow renal function and electrolytes in the morning. Continue to document accurate intake and output along with daily weights. Nurse Practitioner note has been reviewed, I agree with a documented findings and plan of care. Patient was seen and examined. Objective - Vital Signs Vital signs: Vital Signs Temp 97.3 F L 09/15/20 08:00 Pulse 63 09/15/20 12:00 Resp 16 09/15/20 12:00 BP 160/86 09/15/20 12:00 Pulse Ox 96 09/15/20 12:00 Intake & Output 09/14/20 09/15/20 09/15/20 18:59 06:59 18:59 Intake Total 840 130 820 Output Total 625 675 2 Balance 215 -545 818 Weight 122.8 kg Intake: Intake, IV Titration 130 Amount Furosemide 100 mg In 130 Sodium Chloride 0.9% 90 ml @ 10 MG/HR 10 mls/hr IV .Q10H [facility] Rx#: [id number] Oral 840 820 Output: Urine 625 675 2 Uretheral (Russell) 2 Other: Voiding Method Urinal Indwelling Catheter - Labs CBC & Chem 7: 09/12/20 17:45 09/15/20 09:05 Labs: Abnormal Lab Results - Last 24 Hours (Table) 09/14/20 09/14/20 09/15/20 Range/Units 17:05 20:00 06:09 Sodium (137-145) mmol/L Chloride (98-107) mmol/L BUN (9-20) mg/dL Creatinine (0.66-1.25) mg/dL Glucose (74-99) mg/dL POC Glucose (mg/dL) 169 H 183 H 122 H (75-99) mg/dL Calcium (8.4-10.2) mg/dL 09/15/20 09/15/20 Range/Units 09:05 11:22 Sodium 135 L (137-145) mmol/L Chloride 109 H (98-107) mmol/L BUN 43 H (9-20) mg/dL Creatinine 3.45 H (0.66-1.25) mg/dL Glucose 155 H (74-99) mg/dL POC Glucose (mg/dL) 130 H (75-99) mg/dL Calcium 8.1 L (8.4-10.2) mg/dL Microbiology - Last 24 Hours (Table) 09/14/20 10:00 Gram Stain - Preliminary Thoracic Fluid Body Fluid Culture - Preliminary 09/14/20 10:00 Fungal Culture - Preliminary Thoracentesis Fluid 09/14/20 10:00 Acid Fast Bacilli Culture - Preliminary Thoracentesis Fluid
--- NOTE | 2020-09-15 15:38 | PN ---
PROGRESS NOTE Patient is seen for followup for chronic kidney disease. Renal function has been stable with creatinine at about 3.3-3.4 mg/dL. Patient is maintained on Lasix drip for volume overload. He has had about 1.3 L of urine output. Weight is significantly down. However, I am not sure this is accurate. Weight is down by about 4 kg. PHYSICAL EXAMINATION: On examination today, blood pressure was 157/86, heart rate 64 per minute, he is afebrile. Examination of the heart S1, S2. Examination of the lungs, bilateral breath sounds are heard. Abdomen is soft, nontender. Examination of lower extremities shows edema 2+ bilaterally. HANGER OFF exam grossly intact. Chronic skin changes noted. LABS: Show sodium 135, potassium 3.6, chloride 109, BUN 43, creatinine 3.45. ASSESSMENT: 1. Chronic kidney disease NKF stage IV, previous creatinine at 3-3.5 mg/dL. The patient's renal function is close to baseline. 2. Acute on top of chronic systolic congestive heart failure. 3. Cardiomyopathy, EF 45%-50% with [id number] tricuspid regurgitation, pulmonary hypertension. 4. Volume overload. 5. Uncontrolled hypertension with hypertensive emergency, status post nitroglycerin drip, currently improved blood pressures. 6. Urine retention currently with indwelling Russell catheter. PLAN: Decrease Lasix drip to 5 mg an hour, repeat labs in a.m. MMODL / IJN: [id number] /
[2020-09-15] MEDS: FUROSEMIDE 10 MG/ML 4 ML VIAL IV SCH (20:36)
[2020-09-15 21:01] LABS: Glucose,Whole Blood 160 mg/dL (75-99)
--- NOTE | 2020-09-15 23:21 | P.PN ---
Progress Note - Text Progress Note Date: 09/15/20 Chief Complaint: Nausea vomiting History of presenting complaint: This is a pleasant 55-year-old patient of Dr. Fuentes. Patient with baseline right-sided weakness from prior stroke does use a cane. Also has obstructive sleep apnea. Patient was in the hospital and of June. Admitted with-acute CHF exacerbation to EF of 45%, large left-sided thoracentesis, acute kidney injury cardiorenal. Chronic stable medical conditions include right-sided weakness from prior stroke, diabetes, hypertension. Patient now presents for having nausea vomiting for 3 weeks. Since he did go to see a doctor to some change in medication not sure which. No fever no chills. Has a bowel movement every to 3 days. No abdominal pain. Has been taking his medicines regularly up to recently. Also having increasing lower extremity edema. Tired rundown. Patient had uncontrolled blood pressures in the ER. Put on IV nitro drip. Admitted with-hypertensive urgency, CHF exacerbation, fluid overload, uncontrolled nausea vomiting. September [id number] thoracentesis 1.8 L of fluid removed. Was put on Lasix drip. Today-not much of urine output with Lasix drip. Breathing much better. eating much better. Review of systems: Was done for constitutional, cardiovascular, GI, pulmonary. relevant finding as above Active Medications Amlodipine Besylate (Amlodipine 10 Mg Tab) 10 mg PO DAILY [facility] Last Admin: 09/15/20 08:48 Dose: 10 mg Documented by: Aspirin (Aspirin 81 Mg) 81 mg PO DAILY [facility] Last Admin: 09/15/20 08:48 Dose: 81 mg Documented by: Carvedilol (Carvedilol 6.25 Mg Tab) 6.25 mg PO BID-W/MEALS [facility] Last Admin: 09/15/20 17:55 Dose: 6.25 mg Documented by: Clonidine (Clonidine Hcl 0.1 Mg Tab) 0.3 mg PO TID [facility] Last Admin: 09/15/20 20:33 Dose: 0.3 mg Documented by: Doxazosin Mesylate (Doxazosin 2 Mg Tab) 2 mg PO DAILY [facility] Last Admin: 09/15/20 08:50 Dose: 2 mg Documented by: Furosemide (Furosemide 10 Mg/Ml 4 Ml Vial) 40 mg IV Q12HR [facility] Last Admin: 09/15/20 20:36 Dose: 40 mg Documented by: Hydralazine HCl (Hydralazine Hcl 50 Mg Tab) 100 mg PO AC-TID [facility] Last Admin: 09/15/20 17:54 Dose: 100 mg Documented by: Isosorbide Mononitrate (Isosorbide Mononitrate Er 30 Mg Tab.Er.24h) 30 mg PO DAILY [facility] Last Admin: 09/15/20 08:49 Dose: 30 mg Documented by: Losartan Potassium (Losartan 50 Mg Tab) 100 mg PO DAILY [facility] Last Admin: 09/15/20 08:49 Dose: 100 mg Documented by: Metoclopramide HCl (Metoclopramide 10 Mg Tab) 10 mg PO ACHS PRN PRN Reason: Nausea And Vomiting Naloxone HCl (Naloxone 0.4 Mg/Ml 1 Ml Vial) 0.2 mg IV Q2M PRN PRN Reason: Opioid Reversal Pantoprazole Sodium (Pantoprazole 40 Mg Tablet) 40 mg PO AC-BRKFST [facility] Last Admin: 09/15/20 06:42 Dose: 40 mg Documented by: Physical examination: VITAL SIGNS:97.3, 64, 16, 157/86, 98% room air GENERAL: reclining, appears more comfortable EYES: Pupils equal. Conjunctiva normal. HEENT: External appearance of nose and ears normal, oral cavity -dry NECK: JVD unable to assess- masses not palpable. HEART: First and second heart sounds are normal; edema present. LUNGS: Respiratory rate increased; decreased breath sounds at bases. ABDOMEN: Soft, nontender, liver spleen not palpable, no masses palpable. PSYCH: Alert and oriented x3; mood and affect less anxious NEUROLOGICAL: Cranial nerves grossly intact; no facial asymmetry, chronic right-sided weakness INVESTIGATIONS, reviewed in the clinical context: September 15: Potassium 3.6 bun 43 creatinine 3.45 September 14: Potassium 3.7 bun 40 creatinine 3.33 White count 6.4 hemoglobin 15.1 platelets 161 potassium 3.7 bun 41 and creatinine 2.91 Troponin I 0.043 albumin 2.8 Coronavirus P/Cr-not detected EKG tracing personally reviewed by me-right bundle-branch block, some ST segment changes Chest x-ray film personally reviewed by [id number] infiltrate/effusion Previous testing: Bun 62 creatinine 3.37 on July 11 2-D echocardiogram [May 2020] EF 45-50% some tricuspid regurgitation and some pulmonary hypertension inferolateral hypokinesis of the wall Assessment: -Hypertensive urgency from patient not be able to take his medications for last 3 weeks from nausea vomiting..-Improving -Acute congestive heart failure exacerbation from systolic dysfunction EF 45%-on Lasix drip. Improved -Large left pleural effusion from CHF, status post thoracentesis, 1100 mL back in end of June now with possible recurrence-1.8 L of fluid removed -Morbid obesity BMI 40.2 -Right hemiparesis from prior stroke -Diabetes mellitus type 2 -Essential hypertension -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 Possible diabetic gastroparesis. No clinical evidence of acute abdomen. Improved with Reglan. Changed to when necessary. -Troponin leak from hemodynamic mismatch. No clinical evidence of acute coronary syndrome. Plan: patient later is being changed to when necessary. Also changed to IV bolus Lasix 40 mg twice a day. Follow labs closely. Advised to sit up in a chair. Discussed with GI and cardiology.
[2020-09-16 05:54] LABS: Glucose,Whole Blood 121 mg/dL (75-99)
[2020-09-16] MEDS: PANTOPRAZOLE 40 MG TABLET PO SCH (07:00)
[2020-09-16] MEDS: carvediloL 6.25 MG TAB PO SCH ×2 (07:00→16:00)
[2020-09-16] MEDS: hydrALAZINE HCL 50 MG TAB PO SCH ×4 (07:00→18:31)
[2020-09-16] MEDS: FUROSEMIDE 10 MG/ML 4 ML VIAL IV SCH ×2 (07:59→20:46)
[2020-09-16] MEDS: amLODIPine 10 MG TAB PO SCH (07:59)
[2020-09-16] MEDS: cloNIDine HCL 0.1 MG TAB PO SCH ×3 (07:59→20:46)
[2020-09-16] MEDS: ASPIRIN 81 MG PO SCH (07:59)
[2020-09-16] MEDS: DOXAZOSIN 2 MG TAB PO SCH (07:59)
[2020-09-16] MEDS: LOSARTAN 50 MG TAB PO SCH (08:00)
[2020-09-16] MEDS: ISOSORBIDE MONONITRATE ER 30 MG TAB.ER.24H PO SCH (08:00)
[2020-09-16 09:45] LABS: Calcium 7.9 mg/dL (8.4-10.2); Potassium 3.7 mmol/L (3.5-5.1)
--- NOTE | 2020-09-16 10:53 | P.PN ---
Subjective Progress Note Date: 09/16/20 Principal diagnosis: Nausea and vomiting, hypertensive urgency She was seen and examined lying in bed. He denies any further nausea or vomiting. His Reglan has been changed to as needed. His blood pressures have been better controlled. He denies any chest pain, shortness of breath, nausea, vomiting, or abdominal pain. Objective - Vital Signs Vital signs: Vital Signs Temp 98.5 F 09/16/20 08:00 Pulse 61 09/16/20 08:00 Resp 18 09/16/20 08:00 BP 146/74 09/16/20 08:00 Pulse Ox 97 09/16/20 08:00 Intake & Output 09/15/20 09/16/20 09/16/20 18:59 06:59 18:59 Intake Total 1040 650 118 Output Total 3 2300 Balance 1037 -1650 118 Weight 125 kg Intake: Oral 1040 650 118 Output: Urine 3 2300 Uretheral (Russell) 3 Other: Voiding Method Indwelling Catheter - Exam General appearance: The patient is alert, oriented, in no acute distress. Obese. HET: Head is normocephalic and atraumatic. Conjunctiva pink. Sclera anicteric. Neck: Supple without lymphadenopathy. Abdomen: Soft, obese, nontender, nondistended with bowel sounds. No guarding or rigidity. Extremities: Normal skin color and turgor. No pedal edema Neurological: No focal deficits. Alert and oriented 3. - Labs CBC & Chem 7: 09/12/20 17:45 09/16/20 08:50 Labs: Abnormal Lab Results - Last 24 Hours (Table) 09/15/20 09/15/20 09/16/20 Range/Units 11:22 20:41 05:47 Sodium (137-145) mmol/L BUN (9-20) mg/dL Creatinine (0.66-1.25) mg/dL Glucose (74-99) mg/dL POC Glucose (mg/dL) 130 H 160 H 121 H (75-99) mg/dL Calcium (8.4-10.2) mg/dL 09/16/20 Range/Units 08:50 Sodium 135 L (137-145) mmol/L BUN 48 H (9-20) mg/dL Creatinine 3.62 H (0.66-1.25) mg/dL Glucose 170 H (74-99) mg/dL POC Glucose (mg/dL) (75-99) mg/dL Calcium 7.9 L (8.4-10.2) mg/dL Microbiology - Last 24 Hours (Table) 09/14/20 10:00 Gram Stain - Preliminary Thoracic Fluid Body Fluid Culture - Preliminary 09/14/20 10:00 Acid Fast Bacilli Smear - Final Thoracentesis Fluid Acid Fast Bacilli Culture - Preliminary Assessment and Plan (1) Nausea & vomiting Narrative/Plan: Treatment nausea and vomiting for the last 3 weeks duration most likely medication related. The patient thinks that symptoms started after the dose of hydralazine was increased on an outpatient basis by Dr. Fuentes about 3 weeks ago. His last episode of emesis was 2 days ago. Today he reports no further nausea or vomiting with use of Reglan. Likely we are dealing with an upper gastrointestinal pathology at the present time, but cannot rule out component of gastroesophageal reflux disease. Current Visit: Yes Status: Acute Code(s): R11.2 - NAUSEA WITH VOMITING, UNSPECIFIED SNOMED Code(s): 27900165 (2) Hypertension Narrative/Plan: Came in Wwth uncontrolled hypertension, improving. Current Visit: No Status: Acute Code(s): I10 - ESSENTIAL (PRIMARY) HYPERTENSION SNOMED Code(s): 47730678 Plan: 1. Continue Protonix 40 mg daily 2. Reglan will be decreased to as needed 3. Medicine team to look at decreasing dose of hydralazine 4. Small frequent meals 5. Supportive care 6. Thank you for this consult, we will sign off at this time. Please do not hesitate to call us back with any further needs. Dr. Armando I agree with the dictator's note, documented as a scribe by Reanna Horne.
--- NOTE | 2020-09-16 11:34 | P.PN ---
Subjective This is a pleasant 55-year-old male past medical history significant for hypertension, chronic systolic heart failure CVA, diabetes mellitus and chronic kidney disease. He follows in the office with Dr. Wood. He is seen and examined resting comfortably laying flat in bed in no acute distress. Urine output for the previous 24 hours 2303 mL's. He is maintaining a negative fluid balance. His weight is down 2 kg from admission. Blood pressure 146/74 heart rate 58 afebrile maintaining oxygen saturation on room air. Laboratory data reviewed, sodium 135, potassium 3.7 and creatinine 3.62. Currently maintained on amlodipine 10 mg daily, aspirin 81 mg daily, Coreg 6.25 mg twice a day, clonidine 0.3 mg 3 times a day, Cardura 2 mg daily, Lasix 40 mg IV twice a day, hydralazine 100 mg 3 times a day, Imdur 30 mg daily and losartan 100 mg daily. GENERAL: Well-appearing, well-nourished and in no acute distress. NECK: Supple without JVD or thyromegaly. LUNGS: Breath sounds clear to auscultation bilaterally. Respiration equal and unlabored. No wheezes, rales or rhonchi. HEART: Regular rate and rhythm without murmurs, rubs or gallops. S1 and S2 heard. EXTREMITIES: Normal range of motion, bilateral lower extremity 1+ edema. No clubbing or cyanosis. Peripheral pulses intact. ASSESSMENT Acute on chronic systolic heart failure Pleural effusion status post thoracentesis Acute on chronic kidney disease Diabetes mellitus Hypertension PLAN Continue current medical regimen. Renal function continues to worsen daily, nephrology is following. Repeat BMP in the morning. Nurse Practitioner note has been reviewed, I agree with a documented findings and plan of care. Patient was seen and examined. Objective - Vital Signs Vital signs: Vital Signs Temp 98.5 F 09/16/20 08:00 Pulse 61 09/16/20 08:00 Resp 18 09/16/20 08:00 BP 146/74 09/16/20 08:00 Pulse Ox 97 09/16/20 08:00 Intake & Output 09/15/20 09/16/20 09/16/20 18:59 06:59 18:59 Intake Total 1040 650 118 Output Total 3 2300 Balance 1037 -1650 118 Weight 125 kg Intake: Oral 1040 650 118 Output: Urine 3 2300 Uretheral (Russell) 3 Other: Voiding Method Indwelling Catheter - Labs CBC & Chem 7: 09/12/20 17:45 09/16/20 08:50 Labs: Abnormal Lab Results - Last 24 Hours (Table) 09/15/20 09/16/20 09/16/20 Range/Units 20:41 05:47 08:50 Sodium 135 L (137-145) mmol/L BUN 48 H (9-20) mg/dL Creatinine 3.62 H (0.66-1.25) mg/dL Glucose 170 H (74-99) mg/dL POC Glucose (mg/dL) 160 H 121 H (75-99) mg/dL Calcium 7.9 L (8.4-10.2) mg/dL Microbiology - Last 24 Hours (Table) 09/14/20 10:00 Gram Stain - Preliminary Thoracic Fluid Body Fluid Culture - Preliminary 09/14/20 10:00 Acid Fast Bacilli Smear - Final Thoracentesis Fluid Acid Fast Bacilli Culture - Preliminary
[2020-09-16 11:39] LABS: Glucose,Whole Blood 164 mg/dL (75-99)
--- NOTE | 2020-09-16 12:47 | P.PN ---
Progress Note - Text Progress Note Date: 09/15/20 The Russell catheter is draining clear yellow urine. I explained to the patient that his urethral dilation is a temporizing measure, and that he will require an elective circumcision and direct visual internal urethrotomy. I would suggest that the catheter remain in place for a minimum of 1-2 additional days, and that the catheter be removed early in the day in case replacement of the catheter as needed. He was advised to follow up with me upon discharge.
--- NOTE | 2020-09-16 16:55 | PN ---
PROGRESS NOTE Patient is seen for followup for CKD and CHF exacerbation and volume overload. He has been maintained on Lasix drip which was decreased to 5 mg an hour yesterday and it was discontinued today. Overall, patient is feeling better. His weight is down. PHYSICAL EXAMINATION: Blood pressure is 139/70, heart rate 58 per minute, he is afebrile. Examination of the heart S1, S2. Examination of the lungs, bilateral breath sounds are heard. Abdomen is soft, nontender, obese. Examination of the lower extremities shows extremities to be wrapped. Edema is noted. Chronic skin changes noted. SECURITIES DEALER exam grossly intact. LABS: Show sodium 135, potassium 3.7, chloride 107, BUN 48, creatinine 3.62. ASSESSMENT: 1. chronic kidney disease NKF stage IV, secondary to nephrosclerosis. Baseline creatinine 3-3.5 mg/dL. 2. CHF exacerbation, acute on top of chronic mainly systolic. 3. Cardiomyopathy, ejection fraction 45% to 50% with [id number] tricuspid regurgitation, pulmonary hypertension. 4. Volume overload. 5. Urine retention currently with indwelling Russell catheter. 6. Uncontrolled hypertension with hypertensive emergency, currently improved. PLAN: Agree with discontinuation of Lasix drip, switch to IV push Lasix and then we can switch to p.o. Lasix tomorrow. Patient can be discharged from nephrology standpoint and follow up as outpatient in about one week's time. Renal function has worsened slightly over the past 3-4 days, but expect improvement once volume status stabilizes. MMODL / IJN: [id number] /
[2020-09-16 17:18] LABS: Glucose,Whole Blood 181 mg/dL (75-99)
[2020-09-16 20:16] LABS: Glucose,Whole Blood 159 mg/dL (75-99)
[2020-09-17 06:05] LABS: Glucose,Whole Blood 120 mg/dL (75-99)
[2020-09-17] MEDS: PANTOPRAZOLE 40 MG TABLET PO SCH (06:41)
[2020-09-17] MEDS: hydrALAZINE HCL 50 MG TAB PO SCH ×3 (06:41→16:27)
[2020-09-17] MEDS: carvediloL 6.25 MG TAB PO SCH ×2 (06:41→16:27)
[2020-09-17 09:00] LABS: Calcium 8.1 mg/dL (8.4-10.2); Potassium 3.9 mmol/L (3.5-5.1)
[2020-09-17] MEDS ORDERED: FUROSEMIDE 40 MG TAB PO SCH ×2 (09:45→16:00)
[2020-09-17 09:53] VITALS: PULSE 58; TEMP 97.6
[2020-09-17] MEDS: cloNIDine HCL 0.1 MG TAB PO SCH ×2 (09:55→16:27)
[2020-09-17] MEDS: LOSARTAN 50 MG TAB PO SCH (09:55)
[2020-09-17] MEDS: ASPIRIN 81 MG PO SCH (09:56)
[2020-09-17] MEDS: amLODIPine 10 MG TAB PO SCH (09:56)
[2020-09-17] MEDS: ISOSORBIDE MONONITRATE ER 30 MG TAB.ER.24H PO SCH (09:56)
[2020-09-17] MEDS: DOXAZOSIN 2 MG TAB PO SCH (09:56)
--- NOTE | 2020-09-17 11:34 | P.PN ---
Progress Note - Text Progress Note Date: 09/16/20 Chief Complaint: Nausea vomiting History of presenting complaint: This is a pleasant 55-year-old patient of Dr. Fuentes. Patient with baseline right-sided weakness from prior stroke does use a cane. Also has obstructive sleep apnea. Patient was in the hospital and of June. Admitted with-acute CHF exacerbation to EF of 45%, large left-sided thoracentesis, acute kidney injury cardiorenal. Chronic stable medical conditions include right-sided weakness from prior stroke, diabetes, hypertension. Patient now presents for having nausea vomiting for 3 weeks. Since he did go to see a doctor to some change in medication not sure which. No fever no chills. Has a bowel movement every to 3 days. No abdominal pain. Has been taking his medicines regularly up to recently. Also having increasing lower extremity edema. Tired rundown. Patient had uncontrolled blood pressures in the ER. Put on IV nitro drip. Admitted with-hypertensive urgency, CHF exacerbation, fluid overload, uncontrolled nausea vomiting. September [id number] thoracentesis 1.8 L of fluid removed. Was put on Lasix drip. Today-on IV bolus Lasix. Breathing much improved. Eating well. Has been out of bed. Review of systems: Was done for constitutional, cardiovascular, GI, pulmonary. relevant finding as above Current medications reviewed in today's electronic records Physical examination: VITAL SIGNS: 97.6, 56, 18, 150/76, 97% room air GENERAL: reclining, comfortable EYES: Pupils equal. Conjunctiva normal. HEENT: External appearance of nose and ears normal, oral cavity -dry NECK: JVD unable to assess- masses not palpable. HEART: First and second heart sounds are normal; edema present. LUNGS: Respiratory rate increased; decreased breath sounds at bases. ABDOMEN: Soft, nontender, liver spleen not palpable, no masses palpable. PSYCH: Alert and oriented x3; mood and affect less anxious NEUROLOGICAL: Cranial nerves grossly intact; no facial asymmetry, chronic right-sided weakness INVESTIGATIONS, reviewed in the clinical context: September 16: Potassium 3.7 bun 48 creatinine 3.6 to September 15: Potassium 3.6 bun 43 creatinine 3.45 September 14: Potassium 3.7 bun 40 creatinine 3.33 White count 6.4 hemoglobin 15.1 platelets 161 potassium 3.7 bun 41 and creatin ine 2.91 Troponin I 0.043 albumin 2.8 Coronavirus P/Cr-not detected EKG tracing personally reviewed by me-right bundle-branch block, some ST segment changes Chest x-ray film personally reviewed by [id number] infiltrate/effusion Previous testing: Bun 62 creatinine 3.37 on July 11 2-D echocardiogram [May 2020] EF 45-50% some tricuspid regurgitation and some pulmonary hypertension inferolateral hypokinesis of the wall Assessment: -Hypertensive urgency from patient not be able to take his medications for last 3 weeks from nausea vomiting..-Improving -Acute congestive heart failure exacerbation from systolic dysfunction EF 45%-on Lasix drip. Then changed to IV Lasix bolus. Improved -Large left pleural effusion from CHF, status post thoracentesis, 1100 mL back in end of June now with possible recurrence-1.8 L of fluid removed -Morbid obesity BMI 40.2 -Right hemiparesis from prior stroke -Diabetes mellitus type 2 -Essential hypertension -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 Possible diabetic gastroparesis. No clinical evidence of acute abdomen. Improved with Reglan. Changed to when necessary. -Troponin leak from hemodynamic mismatch. No clinical evidence of acute coronary syndrome. Plan: A much better. Discussed with Dr. Umanzor from nephrology. Okay to discharge tomorrow.
[2020-09-17 11:57] LABS: Glucose,Whole Blood 160 mg/dL (75-99)
[2020-09-17 12:03] VITALS: BP 172/85; RESP 16
--- NOTE | 2020-09-17 13:39 | P.PN ---
Subjective This is a pleasant 55-year-old male past medical history significant for hypertension, chronic systolic heart failure CVA, diabetes mellitus and chronic kidney disease. He follows in the office with Dr. Wood. He is seen and examined resting comfortably laying flat in bed in no acute distress. Urine output for the previous 24 hours 2303 mL's. He is maintaining a negative fluid balance. His weight is down 2 kg from admission. Blood pressure 146/74 heart rate 58 afebrile maintaining oxygen saturation on room air. Laboratory data reviewed, sodium 135, potassium 3.7 and creatinine 3.62. Currently maintained on amlodipine 10 mg daily, aspirin 81 mg daily, Coreg 6.25 mg twice a day, clonidine 0.3 mg 3 times a day, Cardura 2 mg daily, Lasix 40 mg IV twice a day, hydralazine 100 mg 3 times a day, Imdur 30 mg daily and losartan 100 mg daily. 09/17/2020 Patient seen and examined resting comfortably laying flat in bed in no acute distress. He denies worsening shortness of breath. He has no chest pain, dizziness or palpitations. Blood pressure 172/85 heart rate 58 afebrile maintaining oxygen saturation on room air. Laboratory data reviewed, sodium 136, potassium 3.9, creatinine 3.74. GENERAL: Well-appearing, well-nourished and in no acute distress. NECK: Supple without JVD or thyromegaly. LUNGS: Breath sounds clear to auscultation bilaterally. Respiration equal and unlabored. No wheezes, rales or rhonchi. HEART: Regular rate and rhythm without murmurs, rubs or gallops. S1 and S2 heard. EXTREMITIES: Normal range of motion, bilateral lower extremity 1+ edema. No clubbing or cyanosis. Peripheral pulses intact. ASSESSMENT Acute on chronic systolic heart failure Pleural effusion status post thoracentesis Acute on chronic kidney disease Diabetes mellitus Hypertension PLAN Ongoing management of worsening renal function and hypertension per nephrology. Follow up with Dr. Wood upon discharge. We will follow along as needed, please call with further questions or concerns. Nurse Practitioner note has been reviewed, I agree with a documented findings and plan of care. Patient was seen and examined. Objective - Vital Signs Vital signs: Vital Signs Temp 97.6 F 09/17/20 09:53 Pulse 58 L 09/17/20 12:00 Resp 16 09/17/20 12:00 BP 172/85 09/17/20 12:00 Pulse Ox 98 09/17/20 12:00 Intake & Output 09/16/20 09/17/20 09/17/20 18:59 06:59 18:59 Intake Total 598 250 Output Total 1150 1100 100 Balance -552 -1100 150 Weight 125.4 kg 125.1 kg Intake: Oral 598 250 Output: Urine 1150 1100 100 Other: Voiding Method Indwelling Catheter Indwelling Catheter - Labs CBC & Chem 7: 09/12/20 17:45 09/17/20 07:45 Labs: Abnormal Lab Results - Last 24 Hours (Table) 09/16/20 09/16/20 09/17/20 Range/Units 17:15 20:15 06:01 Sodium (137-145) mmol/L BUN (9-20) mg/dL Creatinine (0.66-1.25) mg/dL Glucose (74-99) mg/dL POC Glucose (mg/dL) 181 H 159 H 120 H (75-99) mg/dL Calcium (8.4-10.2) mg/dL 09/17/20 09/17/20 Range/Units 07:45 11:41 Sodium 136 L (137-145) mmol/L BUN 49 H (9-20) mg/dL Creatinine 3.74 H (0.66-1.25) mg/dL Glucose 149 H (74-99) mg/dL POC Glucose (mg/dL) 160 H (75-99) mg/dL Calcium 8.1 L (8.4-10.2) mg/dL Microbiology - Last 24 Hours (Table) 09/14/20 10:00 Gram Stain - Preliminary Thoracic Fluid Body Fluid Culture - Preliminary
--- NOTE | 2020-09-17 16:15 | PN ---
PROGRESS NOTE Patient is seen for followup for chronic kidney disease and volume overload. His Lasix drip was discontinued. The patient is doing well. He denies any significant complaints. PHYSICAL EXAMINATION: On examination today blood pressure was 172/85, heart rate 58 per minute. He is afebrile. EXAMINATION OF THE HEART: S1 and S2. EXAMINATION OF LUNGS: Bilateral breath sounds are heard. ABDOMEN: Soft, obese. Examination of lower extremities shows lower extremities to be wrapped. Swelling has improved. SHELTER DIRECTOR exam is grossly intact. LABS: Labs show sodium 136, potassium 3.9, chloride 105, BUN 49, serum creatinine 3.74. ASSESSMENT: 1. Acute kidney injury associated with recent diuresis and cardiorenal syndrome. Serum creatinine slightly higher than baseline secondary to diuresis. 2. Hypertension, uncontrolled. Medications have been increased. Cozaar is up to 100 mg daily. Hydralazine is 100 mg t.i.d. Hopefully his blood pressure will be better controlled at home. We will follow up in one week's time and adjust medications if needed. 3. Volume overload, currently improved. 4. Congestive heart failure, acute on top of chronic, systolic. 5. Cardiomyopathy, ejection fraction 45% to 50%, with moderate to severe pulmonary hypertension and moderate tricuspid regurgitation. 6. Urine retention, currently with indwelling Russell catheter. PLAN: Patient can be discharged on p.o. Lasix. We will see him back in the office in one week's time and switch to Demadex down the road. MMODL / IJN: [id number] /
--- NOTE | 2020-09-18 19:52 | P.DS ---
Providers Date of admission: 09/12/20 19:56 Expected date of discharge: 09/17/20 Attending physician: Darek Soni Consults: 09/12/20 19:54 Consult Physician Routine Consulting Provider: Landon Espinal Consult Reason/Comments: heart failure Do you want consulting provider notified?: Yes Consult Physician Stat Consulting Provider: Aman Jeronimo Consult Reason/Comments: icu patient Do you want consulting provider notified?: Already Contacted 09/13/20 14:08 Consult Physician Routine Consulting Provider: Rodolfo Leon Consult Reason/Comments: ckd Do you want consulting provider notified?: Yes 09/14/20 11:48 Consult Physician Routine Consulting Provider: Abel Arellano Consult Reason/Comments: difficult damian placement Do you want consulting provider notified?: Yes Primary care physician: [facility] Course: Chief Complaint: Nausea vomiting History of presenting complaint: This is a pleasant 55-year-old patient of Dr. Fuentes. Patient with baseline right-sided weakness from prior stroke does use a cane. Also has obstructive sleep apnea. Patient was in the hospital and of June. Admitted with-acute CHF exacerbation to EF of 45%, large left-sided thoracentesis, acute kidney injury cardiorenal. Chronic stable medical conditions include right-sided weakness from prior stroke, diabetes, hypertension. Patient now presents for having nausea vomiting for 3 weeks. Since he did go to see a doctor to some change in medication not sure which. No fever no chills. Has a bowel movement every to 3 days. No abdominal pain. Has been taking his medicines regularly up to recently. Also having increasing lower extremity edema. Tired rundown. Patient had uncontrolled blood pressures in the ER. Put on IV nitro drip. Admitted with-hypertensive urgency, CHF exacerbation, fluid overload, uncontrolled nausea vomiting. September [id number] thoracentesis 1.8 L of fluid removed. Was put on Lasix drip. Blood pressure medications were adjusted. Nausea vomiting resolved the short course of Reglan. Blood pressure stabilized. No further intervention as per GI. Today-stable. Eating well. Has been out of bed. Blood pressure controlled Station Mechanic Helper: Dr. Umanzor from nephrology Cardiology associates Dr. Granados from GI Dr. oreilly from neurology Dr. Princess garrido from pulmonary Physical examination: VITAL SIGNS: 97.6, 56, 16, 160 with 78, 77% room air GENERAL: reclining, comfortable EYES: Pupils equal. Conjunctiva normal. HEENT: External appearance of nose and ears normal, oral cavity -dry NECK: JVD unable to assess- masses not palpable. HEART: First and second heart sounds are normal; edema present. LUNGS: Respiratory rate increased; decreased breath sounds at bases. ABDOMEN: Soft, nontender, liver spleen not palpable, no masses palpable. PSYCH: Alert and oriented x3; mood and affect less anxious NEUROLOGICAL: Cranial nerves grossly intact; no facial asymmetry, chronic ri ght-sided weakness INVESTIGATIONS, reviewed in the clinical context: September 17: Potassium 3.9 creatinine 3.74 September 16: Potassium 3.7 bun 48 creatinine 3.6 to September 15: Potassium 3.6 bun 43 creatinine 3.45 September 14: Potassium 3.7 bun 40 creatinine 3.33 White count 6.4 hemoglobin 15.1 platelets 161 potassium 3.7 bun 41 and creatinine 2.91 Troponin I 0.043 albumin 2.8 Coronavirus P/Cr-not detected EKG tracing personally reviewed by me-right bundle-branch block, some ST segment changes Chest x-ray film personally reviewed by [id number] infiltrate/effusion Previous testing: Bun 62 creatinine 3.37 on July 11 2-D echocardiogram [May 2020] EF 45-50% some tricuspid regurgitation and some pulmonary hypertension inferolateral hypokinesis of the wall Assessment: -Hypertensive urgency from patient not be able to take his medications for last 3 weeks from nausea vomiting..-Improving -Acute congestive heart failure exacerbation from systolic dysfunction EF 45%-on Lasix drip. Then changed to IV Lasix bolus. 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 Possible diabetic gastroparesis. No clinical evidence of acute abdomen. Improved with Reglan. -Troponin leak from hemodynamic mismatch. No clinical evidence of acute coronary syndrome. Disposition: Home Patient Condition at Discharge: Stable Plan - Discharge Summary Discharge Rx Participant: No New Discharge Prescriptions: New Doxazosin [Cardura] 2 mg PO DAILY #30 tab cloNIDine HCL [Catapres] 0.3 mg PO TID #90 tab amLODIPine [Norvasc] 10 mg PO HS #30 tab Continue Aspirin 81 mg PO DAILY chew Isosorbide Mononitrate ER [Imdur] 30 mg PO DAILY #30 tab.er.24h hydrALAZINE HCL [Apresoline] 100 mg PO AC-TID Losartan Potassium 100 mg PO DAILY Furosemide [Lasix] 40 mg PO BID #60 tab Changed carvediloL [Coreg*] 6.25 mg PO BID-W/MEALS #60 tab Discharge Medication List Aspirin 81 mg PO DAILY chew 07/11/20 [Rx] Isosorbide Mononitrate ER [Imdur] 30 mg PO DAILY #30 tab.er.24h 07/11/20 [Rx] Losartan Potassium 100 mg PO DAILY 09/12/20 [History] hydrALAZINE HCL [Apresoline] 100 mg PO AC-TID 09/12/20 [History] Doxazosin [Cardura] 2 mg PO DAILY #30 tab 09/17/20 [Rx] Furosemide [Lasix] 40 mg PO BID #60 tab 09/17/20 [Rx] amLODIPine [Norvasc] 10 mg PO HS #30 tab 09/17/20 [Rx] carvediloL [Coreg*] 6.25 mg PO BID-W/MEALS #60 tab 09/17/20 [Rx] cloNIDine HCL [Catapres] 0.3 mg PO TID #90 tab 09/17/20 [Rx] Follow up Appointment(s)/Referral(s): Lea Umanzor MD [STAFF PHYSICIAN] - 10 Days (Office will contact you with appointment date & time.) Fermin Wood MD [STAFF PHYSICIAN] - 09/29/20 9:00 am (With DESIREE Merino) Giorgio Oreilly MD [STAFF PHYSICIAN] - 09/30/20 9:20 am (Office will call you if appointment can be moved up earlier.) Larry Fuentes MD [Primary Care Provider] - 1-2 days Aman Jeronimo DO [Doctor of Osteopathic Medicine] - 1 Week Patient Instructions/Handouts: Hypertensive Crisis (DC) Activity/Diet/Wound Care/Special Instructions: bmp- 1 week 2000mL fluid restriction daily Discharge Disposition: HOME SELF-CARE
== END 2020-09-17 16:40 | disposition home or self-care (01) | DRG 291 ==
LOC: EC 17:06 → 2SICU 19:56 → 3SCARD 09-13 15:04
PROVIDERS: ADMIT Hospitalist; ATTEND Hospitalist
PROC: 0T9B70Z Drainage of Bladder with Drainage Device, Via Natural or Artificial Opening (ICD-10-PCS; 2020-09-14)
PROC: 0T7D7ZZ Dilation of Urethra, Via Natural or Artificial Opening (ICD-10-PCS; 2020-09-14)
PROC: 0W9B3ZX Drainage of Left Pleural Cavity, Percutaneous Approach, Diagnostic (ICD-10-PCS; principal; 2020-09-15)
DX: I13.0 Hypertensive heart and chronic kidney disease with heart failure and stage 1 through stage 4 chronic kidney disease, or unspecified chronic kidney disease (principal); I50.23 Acute on chronic systolic (congestive) heart failure; I16.1 Hypertensive emergency; J91.8 Pleural effusion in other conditions classified elsewhere; I69.351 Hemiplegia and hemiparesis following cerebral infarction affecting right dominant side; N17.9 Acute kidney failure, unspecified; N18.4 Chronic kidney disease, stage 4 (severe); Z68.41 Body mass index [BMI] 40.0-44.9, adult; E11.22 Type 2 diabetes mellitus with diabetic chronic kidney disease; E66.01 Morbid (severe) obesity due to excess calories; E78.5 Hyperlipidemia, unspecified; G47.33 Obstructive sleep apnea (adult) (pediatric); I07.1 Rheumatic tricuspid insufficiency; I27.20 Pulmonary hypertension, unspecified; I42.9 Cardiomyopathy, unspecified; I44.0 Atrioventricular block, first degree; I45.10 Unspecified right bundle-branch block; K59.09 Other constipation; Z20.828 Contact with and (suspected) exposure to other viral communicable diseases; N35.919 Unspecified urethral stricture, male, unspecified site; N39.43 Post-void dribbling; T50.2X5A Adverse effect of carbonic-anhydrase inhibitors, benzothiadiazides and other diuretics, initial encounter; R11.2 Nausea with vomiting, unspecified; R79.89 Other specified abnormal findings of blood chemistry; Z79.82 Long term (current) use of aspirin; Z79.899 Other long term (current) drug therapy; Z80.6 Family history of leukemia; Z82.49 Family history of ischemic heart disease and other diseases of the circulatory system; Z83.3 Family history of diabetes mellitus; Z90.49 Acquired absence of other specified parts of digestive tract; Z88.0 Allergy status to penicillin; N47.1 Phimosis
CPT/HCPCS: 36415; 71045; 71046; 76604; 78582; 80048; 80053; 82945; 83605; 83615; 83735; 83880; 84132; 84157; 84484; 85025; 85379; 85610; 85730; 87070; 87102; 87116; 87205; 87206; 87252; 87496; 87498; 87502; 87529; 87634; 87635; 87798; 88108; 88305; 89050; 93005; 96365; 96366; 96372; 96375; 99291

== ENCOUNTER 2021-05-25 21:18 | Emergency (ER) | payer MEDICARE, OTHER ==
[2021-05-25] MEDS ORDERED: KETOROLAC 15 MG/ML 1 ML VIAL IVP STA (21:54)
[2021-05-25] MEDS ORDERED: diphenhydrAMINE 50 MG/ML 1 ML VIAL IVP STA (21:54)
[2021-05-25] MEDS ORDERED: METOCLOPRAMIDE 5 MG/ML 2 ML VIAL IVP STA (21:54)
[2021-05-25] MEDS ORDERED: SODIUM CHLORIDE 0.9% 1,000 ML IV STA (21:54)
[2021-05-25] MEDS ORDERED: DOXYCYCLINE 100 MG CAP PO STA (21:57)
[2021-05-25 22:12] LABS: Basophils # (A) 0.1 k/uL (0-0.2); Basophils % (A) 1 %; Eosinophils # (A) 0.1 k/uL (0-0.7); Eosinophils % (A) 1 %; HCT 37.6 % (39.0-53.0); Lymphocytes # (A) 1.1 k/uL (1.0-4.8); Lymphocytes % (A) 11 %; MCH 31.9 pg (25.0-35.0); MCHC 34.7 g/dL (31.0-37.0); Mean Platelet Volume 8.4; Monocytes # (A) 0.6 k/uL (0-1.0); Monocytes % (A) 5 %; Neutrophils # (A) 8.3 k/uL (1.3-7.7); Neutrophils % (A) 81 %; Platelet Count 263 k/uL (150-450); RBC 4.09 m/uL (4.30-5.90); RDW 13.3 % (11.5-15.5); WBC 10.2 k/uL (3.8-10.6)
[2021-05-25] MEDS ORDERED: SODIUM CHLORIDE 0.9% 500 ML 500 ML IV STA (22:26)
[2021-05-25 22:33] LABS: Calcium 9.1 mg/dL (8.4-10.2); Total Bilirubin 0.8 mg/dL (0.2-1.3); Total Protein 7.2 g/dL (6.3-8.2)
--- NOTE | 2021-05-25 22:37 | CT ---
EXAMINATION TYPE: CT brain wo con DATE OF EXAM: 05/25/2021 COMPARISON: None HISTORY: headaches x3 months CT DLP: 1094.4 mGycm Automated exposure control for dose reduction was used. The ventricles and sulci appear normal. There is no mass effect nor midline shift. There is no eviden ce of intracranial hemorrhage. The calvarium is intact. There is somewhat linear area of hypodensity right posterior frontal lobe cortex measuring approximat melissa 3 x 1 cm. This is consistent with an old infarct. There is moderate mucosal thickening in the frontal ethmoid and maxillary sinuses. There is normal ae ration of the mastoid sinuses. Sphenoid sinus appears fairly normal. IMPRESSION: There is some white and meehan matter hypodensity right posterior frontal lobe convexity that could be an old infarct. Moderate sinusitis.
[2021-05-25 22:48] LABS: Potassium 3.8 mmol/L (3.5-5.1)
[2021-05-25 22:50] VITALS: RESP 18
--- NOTE | 2021-05-25 23:02 | ED ---
Headache HPI - General Chief Complaint: Headache Stated Complaint: Facial pain & Numbness Time Seen by Provider: 05/25/21 21:39 Mode of arrival: ambulatory Limitations: no limitations - History of Present Illness Initial Comments: wit 56-year-old male with history of right-sided CVA, hearing loss , MWF dialysis presenting to emergency Department with a chief complaint of a headache and hearing loss. Patient reports he has been experiencing hearing loss in his left ear for the past 4 months and he saw an ENT specialist. States he is also known to acute recurrent sinus infections and this one feels like it as well. States he has been experiencing yellow rhinorrhea along with maxillary sinus pain. States he is also experiencing a frontal headache that was gradual onset and not the worst headache of his life. States he has photophobia and nausea vomiting. He denies any chest pain or shortness of breath. Denies any visual changes or any gait instability at this time. He does report slight right-sided paralysis from his previous stroke. Denies any new onset unilateral weakness or paresthesias. He denies any facial numbness or any difficulty with speech. His family members are also there and they're agreeable with this. - Related Data Home Medications Medication Instructions Recorded Confirmed Apixaban [Eliquis] 5 mg PO BID 05/25/21 05/25/21 Atorvastatin Calcium [Lipitor] 80 mg PO HS 05/25/21 05/25/21 Cetirizine HCl [Zyrtec] 10 mg PO DAILY 05/25/21 05/25/21 Ibuprofen [Advil] 400 mg PO ONCE PRN 05/25/21 05/25/21 Torsemide [Demadex] 40 mg PO TUTHSA@0900,1600 05/25/21 05/25/21 cloNIDine [Catapres-TTS] 1 patch TRANSDERM Q7D 05/25/21 05/25/21 Previous Rx's Medication Instructions Recorded Aspirin 81 mg PO DAILY chew 07/11/20 Isosorbide Mononitrate ER [Imdur] 30 mg PO DAILY #30 tab.er.24h 07/11/20 Doxazosin [Cardura] 2 mg PO DAILY #30 tab 09/17/20 amLODIPine [Norvasc] 10 mg PO HS #30 tab 09/17/20 Doxycycline Monohydrate [Monodox] 100 mg PO Q12HR #20 cap 05/25/21 Ondansetron Odt [Zofran Odt] 4 mg PO Q8HR PRN #10 tab 05/25/21 Allergies Allergy/AdvReac Type Severity Reaction Status Date / Time Penicillins Allergy Swelling Verified 05/25/21 23:11 Review of Systems ROS Statement: Those systems with pertinent positive or pertinent negative responses have been documented in the HPI. ROS Other: All systems not noted in ROS Statement are negative. Past Medical History Past Medical History: CVA/TIA, Diabetes Mellitus, Hypertension Additional Past Medical History / Comment(s): right hand/leg weakness d/t CVA. Stage IV chronic kidney disease History of Any Multi-Drug Resistant Organisms: None Reported Past Surgical History: Adenoidectomy, Appendectomy, Tonsillectomy Past Psychological History: No Psychological Hx Reported Smoking Status: Never smoker Past Alcohol Use History: None Reported Past Drug Use History: None Reported - Past Family History Father Additional Family Medical History / Comment(s): leukemia Mother Family Medical History: Diabetes Mellitus, Hypertension General Exam Limitations: no limitations General appearance: alert, in no apparent distress Head exam: Present: atraumatic, normocephalic, normal inspection Eye exam: Present: normal appearance, PERRL, EOMI Pupils: Present: normal accommodation ENT exam: Present: normal exam, mucous membranes moist, TM's normal bilaterally, normal external ear exam. Absent: normal oropharynx ( Yellow bilateral nasal discharge. Maxillary sinus tenderness.) Neck exam: Present: normal inspection, full ROM. Absent: tenderness, lymphadenopathy, thyromegaly Respiratory exam: Present: normal lung sounds bilaterally. Absent: respiratory distress, wheezes, rales, rhonchi, stridor, chest wall tenderness Cardiovascular Exam: Present: regular rate, normal rhythm, normal heart sounds. Absent: systolic murmur GI/Abdominal exam: Present: soft. Absent: distended Extremities exam: Present: normal inspection, full ROM, normal capillary refill, other ( palpable DP and PT bilaterally). Absent: tenderness Back exam: Present: normal inspection, full ROM. Absent: tenderness, CVA tenderness (R) Neurological exam: Present: alert, oriented X3, CN II-XII intact, normal gait Expanded Patient oriented to: Present: person, place, time Speech: Present: fluid speech Cranial nerves: EOM's Intact: Normal, Gag Reflex: Normal, Tongue Deviation: Normal, Nystagmus: Normal, Facial Sensation: Normal Cerebellar function: Finger to Nose: Normal Upper motor neuron: Pronator Drift: Normal Motor strength exam: RUE: 4, LUE: 5, RLE: 4, LLE: 5 Psychiatric exam: Present: normal affect, normal mood Skin exam: Present: warm, dry, intact, normal color Course Vital Signs 05/25/21 05/25/21 21:23 22:48 Temperature 98 F Pulse Rate 93 90 Respiratory 20 18 Rate Blood Pressure 173/90 174/96 O2 Sat by Pulse 99 99 Oximetry Medical Decision Making - Medical Decision Making 56-year-old male with history of right-sided CVA, left sided hearing loss , MWF dialysis presenting to emergency Department with a chief complaint of a headache and hearing loss. on physical examination, yellow nasal discharge. Also maxillary sinus tenderness. Dmild right-sided weakness at baseline secondary to an old stroke.no other focal neural deficits on exam. CT of the brain revealed white and meehan matter hypodensity right posterior frontal lobe convexity that could be an old infarct. There is also moderate sinusitis. Patient was started on doxycycline because he has a penicillin ALLERGY. He was also given IV fluids, Toradol after the CT imaging, Zofran. On reevaluation, he reports improvement of symptoms. He will be treated with doxycycline. Patient will follow up with his primary care physician. Return parameters were thoroughly discussed patient is an attending agreeable. Case discussed with - Lab Data Result diagrams: 05/25/21 22:04 05/25/21 22:04 Lab Results 05/25/21 05/25/21 Range/Units 22:04 22:04 WBC 10.2 (3.8-10.6) k/uL RBC 4.09 L (4.30-5.90) m/uL Hgb 13.0 (13.0-17.5) gm/dL Hct 37.6 L (39.0-53.0) % MCV 92.0 (80.0-100.0) fL MCH 31.9 (25.0-35.0) pg MCHC 34.7 (31.0-37.0) g/dL RDW 13.3 (11.5-15.5) % Plt Count 263 (150-450) k/uL MPV 8.4 Neutrophils % 81 % Lymphocytes % 11 % Monocytes % 5 % Eosinophils % 1 % Basophils % 1 % Neutrophils # 8.3 H (1.3-7.7) k/uL Lymphocytes # 1.1 (1.0-4.8) k/uL Monocytes # 0.6 (0-1.0) k/uL Eosinophils # 0.1 (0-0.7) k/uL Basophils # 0.1 (0-0.2) k/uL Sodium 135 L (137-145) mmol/L Potassium 3.8 (3.5-5.1) mmol/L Chloride 95 L (98-107) mmol/L Carbon Dioxide 28 (22-30) mmol/L Anion Gap 12 mmol/L BUN 35 H (9-20) mg/dL Creatinine 3.68 H (0.66-1.25) mg/dL Est GFR (CKD-EPI)AfAm 20 (>60 ml/min/1.73 sqM) Est GFR (CKD-EPI)NonAf 17 (>60 ml/min/1.73 sqM) Glucose 192 H (74-99) mg/dL Calcium 9.1 (8.4-10.2) mg/dL Total Bilirubin 0.8 (0.2-1.3) mg/dL AST 17 (17-59) U/L ALT 12 (4-49) U/L Alkaline Phosphatase 113 (38-126) U/L Total Protein 7.2 (6.3-8.2) g/dL Albumin 4.0 (3.5-5.0) g/dL - EKG Data EKG Comments: first-degree AV block Ventricular rate 90, MS of 248, QRS 140, QTC 481. Disposition Clinical Impression: Acute sinusitis, Headache Disposition: HOME SELF-CARE Condition: Stable Instructions (If sedation given, give patient instructions): Sinusitis (ED), Acute Headache (ED) Additional Instructions: Please return to the Emergency Department if symptoms worsen or any other concerns. Prescriptions: Doxycycline Monohydrate [Monodox] 100 mg PO Q12HR #20 cap Ondansetron Odt [Zofran Odt] 4 mg PO Q8HR PRN #10 tab PRN Reason: Nausea Is patient prescribed a controlled substance at d/c from ED?: No Referrals: Larry Fuentes MD [Primary Care Provider] - 1-2 days Time of Disposition: :38
[2021-05-25 23:47] VITALS: BP 173/92; PULSE 89; TEMP 98.2
== END 2021-05-25 23:45 | disposition home or self-care (01) ==
LOC: EC 21:18
DX: J01.90 Acute sinusitis, unspecified (principal); H91.90 Unspecified hearing loss, unspecified ear; H91.92 Unspecified hearing loss, left ear; R11.2 Nausea with vomiting, unspecified; I10 Essential (primary) hypertension; H53.149 Visual discomfort, unspecified; E11.9 Type 2 diabetes mellitus without complications; Z88.0 Allergy status to penicillin; Z86.73 Personal history of transient ischemic attack (TIA), and cerebral infarction without residual deficits; Z79.899 Other long term (current) drug therapy
CPT/HCPCS: 36415; 93005; 80053; 85025; 70450; 99284; 96374; 96375; 96361; J1200; J2765; J1885

== ENCOUNTER 2021-07-10 07:51 | Day surgery (SDC) | payer MEDICARE, OTHER ==
[2021-07-08 14:57] VITALS: BMI 33.8
[~2021-07-10 07:51] MED LIST: DEXAMETHASONE SOD PHOSPHATE 4 MG/ML 1 ML VIAL IV ONE; HYDROmorphone 0.5 MG/0.5 ML SYRINGE IVP PRN; LIDOCAINE 1% (10MG/ML) FOR IV START INTRADERMA PRN; ONDANSETRON 4 MG/2 ML VIAL IVP ONE; VANCOMYCIN 1,500 MG in SODIUM CHLORIDE 0.9% 250 ML IVPB PRN
[2021-07-10 08:24] VITALS: TEMP 97.8
[2021-07-10 08:34] LABS: Glucose,Whole Blood 111 mg/dL (75-99)
[2021-07-10] MEDS: LACTATED RINGERS 1,000 ML IV SCH ×2 (08:36→10:46)
[2021-07-10] MEDS ORDERED: hydrALAZINE HCL 20 MG/ML 1 ML VIAL IVP ONE (08:36)
[2021-07-10] MEDS ORDERED: MIDAZOLAM 2 MG/2 ML VIAL IVP ONE (08:48)
[2021-07-10] MEDS ORDERED: fentaNYL (PF) 50 MCG/ML 2 ML AMP ONE (10:18)
[2021-07-10] MEDS ORDERED: ROPIVACAINE 5 MG/ML 30 ML VIAL ONE (10:18)
[2021-07-10] MEDS ORDERED: GLYCOPYRROLATE 0.2 MG/ML 2 ML VIAL ONE (10:18)
[2021-07-10] MEDS ORDERED: PROPOFOL 10 MG/ML 20 ML VIAL IV ONE (10:18)
[2021-07-10] MEDS ORDERED: SODIUM CHLORIDE 0.9% (PF) 10 ML VIAL ONE (10:18)
[2021-07-10] MEDS ORDERED: MIDAZOLAM 2 MG/2 ML VIAL ONE (10:18)
[2021-07-10] MEDS ORDERED: KETAMINE 10 MG/ML 20 ML VIAL ONE (10:18)
[2021-07-10] MEDS ORDERED: ceFAZolin 2,000 MG in SODIUM CHLORIDE 0.9% 500 ML IRRIGATION ONE (10:38)
[2021-07-10] MEDS ORDERED: HEPARIN SODIUM,PORCINE 2,000 UNIT in SODIUM CHLORIDE 0.9% 500 ML 500 ML IRRIGATION ONE (10:38)
[2021-07-10] MEDS ORDERED: SODIUM CHLORIDE 0.9% 1,000 ML IV ONE (10:46)
--- NOTE | 2021-07-10 10:46 | P.ANPRN ---
Procedure Note - Anesthesia - Nerve Block Performed Left Supraclavicular Single Date of Procedure: 07/10/21 Procedure Start Time: 08:47 Procedure Stop Time: 08:55 Location of Patient: PreOp Indication: Acute Post-Operative Pain, Analgesia, Dx/Pain Location, Requested by Surgeon Sedation Type: Sedate with meaningful contact maintained Preparation: Sterile Prep Position: Supine Catheter: None Needle Types: Pajunk Needle Gauge: 20 Ultrasound used to visualize needle placement: Yes Ultrasound used to observe medication spread: Yes Injectate: 0.5% Ropivacaine (see comment for volume) (15 ml of Ropivacaine and 10 ml of 0.9% NaCl mixture) Blood Aspirated: No Pain Paresthesia on Injection Noted: No Resistance on Injection: Normal Image Stored and Saved: Yes Events: Uneventful and Well Tolerated
[2021-07-10 11:59] VITALS: RESP 16
--- NOTE | 2021-07-10 12:03 | P.OP ---
Date of Procedure: 07/10/21 Preoperative Diagnosis: End-stage renal disease on hemodialysis Postoperative Diagnosis: same Procedure(s) Performed: Left upper extremity radiocephalic Elliott fistula creation Anesthesia: MAC, regional Surgeon: Tano Parkinson Estimated Blood Loss (ml): 10 Pathology: none sent Condition: stable Disposition: PACU Indications for Procedure: 56-year-old gentleman with end-stage and was easily without severe right-sided chest catheter presents to the hospital for creation of left upper extremity Elliott fistula. Description of Procedure: After written and informed consent was obtained from the patient the patient was brought to the operative suite and laid in a supine position. The left arm was prepped and draped in the usual sterile fashion after appropriate anesthesia was performed per the anesthesiologist. Utilizing ultrasound the cephalic vein was visualized and marked and shown to be good size. A small vertical incision was then created with a 15 blade scalpel just proximal to the wrist and dissection was carried down to the radial artery which was dissected free in a circumferential manner. Proximal distal control was then obtained with vessel loops. Attention was then placed back to the cephalic vein which was located and dissected free in a circumferential manner distally to the wrist. At the wrist it was ligated with silk suture. Further dissection was carried around the vein and the vein was brought over to the radial artery. Serial dilation was then performed on the vein and good backbleeding was noted. Patient was administered 3000 units of heparin and the radial artery was clamped at the proximal and distal aspect. Utilizing 11 blade scalpel and arteriotomy was created and extended with Pott Irving scissors. There was good brisk backbleeding noted from the radial artery and pulsatile blood flow visualized from the proximal aspect. The vein was then spatulated and an end-to-side anastomosis was created with a 7-0 Prolene suture. Prior to last sutures being placed the control was released from the vein revealing good backbleeding and distal control on the radial artery was released revealing good back flow. The proximal control was then released and good pulsatile blood flow was visualized in the fistula and final sutures were secured. The area was copiously irrigated with antibiotic solution. Hemostasis was assured. The vessels were then interrogated with Doppler which demonstrated good multiphasic signal distal to the anastomosis as well as positive bruit within the vein consistent with good fistula creation. Under ultrasound there was pulsatile flow noted in the cephalic vein. The incision was then closed in a multilayer fashion. The skin was cleansed and dressings were placed. Patient does procedure well and was sent to PACU for recovery.
[2021-07-10 12:14] VITALS: BP 161/90; PULSE 72
== END 2021-07-10 12:39 | disposition home or self-care (01) ==
LOC: OR 07:51
PROVIDERS: ATTEND Surgery
DX: I12.0 Hypertensive chronic kidney disease with stage 5 chronic kidney disease or end stage renal disease (principal); E11.22 Type 2 diabetes mellitus with diabetic chronic kidney disease; N18.6 End stage renal disease; Z99.2 Dependence on renal dialysis; E78.5 Hyperlipidemia, unspecified; G47.33 Obstructive sleep apnea (adult) (pediatric); Z79.899 Other long term (current) drug therapy; Z86.73 Personal history of transient ischemic attack (TIA), and cerebral infarction without residual deficits; Z79.01 Long term (current) use of anticoagulants; Z88.0 Allergy status to penicillin
CPT/HCPCS: 36821; 64415; 76942; J2250; J3370; J0360; J1644; J1100; J2405; J0690; J3010; J2795; J2704

== ENCOUNTER 2021-12-28 11:15 | Day surgery (SDC) | payer MEDICARE, OTHER ==
[2021-12-28] MEDS ORDERED: ISOSORBIDE MONONITRATE ER 30 MG TAB.ER.24H PO STA (12:16)
[2021-12-28 12:22] LABS: Glucose,Whole Blood 121 mg/dL (75-99)
[2021-12-28 12:23] VITALS: RESP 16; TEMP 98.2
[2021-12-28 12:30] LABS: Basophils # (A) 0.1 k/uL (0-0.2); Basophils % (A) 2 %; Eosinophils # (A) 0.3 k/uL (0-0.7); Eosinophils % (A) 3 %; HCT 34.2 % (39.0-53.0); HGB 12.1 gm/dL (13.0-17.5); Lymphocytes % (A) 24 %; MCH 34.3 pg (25.0-35.0); MCHC 35.4 g/dL (31.0-37.0); MCV 96.8 fL (80.0-100.0); Mean Platelet Volume 8.2; Monocytes # (A) 0.4 k/uL (0-1.0); Monocytes % (A) 5 %; Neutrophils # (A) 5.5 k/uL (1.3-7.7); Neutrophils % (A) 65 %; Platelet Count 204 k/uL (150-450); RBC 3.53 m/uL (4.30-5.90); RDW 13.1 % (11.5-15.5); WBC 8.4 k/uL (3.8-10.6)
[2021-12-28] MEDS ORDERED: cloNIDine 0.3 MG/24HR PATCH TRANSDERM SCH (12:30)
[2021-12-28] MEDS ORDERED: DOXAZOSIN 2 MG TAB PO ONE (12:30)
[2021-12-28 12:40] LABS: Calcium 8.4 mg/dL (8.4-10.2); Potassium 5.3 mmol/L (3.5-5.1)
[2021-12-28] MEDS ORDERED: fentaNYL (PF) 50 MCG/ML 2 ML AMP ONE (14:39)
[2021-12-28] MEDS ORDERED: LIDOCAINE 1% INJ 10MG/ML (20 ML MDV) SQ ONE (14:46)
[2021-12-28] MEDS ORDERED: LIDOCAINE 1% INJ 10MG/ML (20 ML MDV) ONE (14:46)
[2021-12-28] MEDS ORDERED: fentaNYL (PF) 50 MCG/ML 2 ML AMP IV ONE (14:49)
[2021-12-28] MEDS ORDERED: MIDAZOLAM 2 MG/2 ML VIAL IV ONE (14:50)
[2021-12-28] MEDS ORDERED: IV FLUID CONTINUATION 400 ML IV ONE (14:50)
[2021-12-28] MEDS ORDERED: HYDROmorphone 0.5 MG/0.5 ML SYRINGE IVP ONE (15:48)
[2021-12-28] MEDS ORDERED: IOPAMIDOL-370 100ML BTL INJ ONE (16:10)
--- NOTE | 2021-12-28 16:33 | P.OP ---
Date of Procedure: 12/28/21 Description of Procedure: Date: 12/28/2021 Preoperative diagnosis: Left upper extremity arteriovenous fistula dysfunction, multiple branches, end-stage renal disease Postoperative diagnosis: Same Procedure: Left Upper extremity fistulogram with ultrasound guided access, fistula revision with branch ligation 2 Surgeon: Tano Parkinson DO Anesthesia : Local Estimated blood loss: Minimal Complications: None Condition: Stable Disposition: Palpable thrill left upper extremity radiocephalic fistula Indications: 56-year-old gentleman with history of left upper extremity radiocephalic fistula creation secondary to end-stage renal disease on hemodialysis via chest catheter. They attempted to access his fistula and had difficulty. He underwent ultrasound which demonstrated 2 branches coming off the fistula stealing flow from the fistula itself. He presents today for fistulogram and ligation of these branches. Operative narrative: After written informed consent was obtained the patient all risks benefits competitions were described the patient is brought to the Chief Load Dispatcher and laid in a supine position with their left arm outstretched on an armboard. The area of the arm was prepped and draped in usual sterile fashion. Utilizing local anesthetic the fistula was accessed under ultrasound guidance and a 4-Emirati sheath was placed. Fistulogram was then obtained demonstrating 2 branches stealing flow from the fistula. No stenosis noted. Multiple fistula grams were obtained after to incisions were created after local anesthetic was infused overlying the area and dissection was carried down to the branches. The branches were then ligated with 4-0 silk suture. Fistulogram was then obtained and is rating brisk flow through the fistula with no evidence of branch filling. The incisions were then closed with 4-0 Vicryl suture and glue. Sheath was pulled and pressure was placed for hemostasis. Patient tolerated procedure well was sent to recovery.
[2021-12-28 20:06] VITALS: BP 155/85; PULSE 7
--- NOTE | 2021-12-29 09:10 | IR ---
EXAMINATION TYPE: IR fistula/abscess/sinus tract DATE OF EXAM: 12/28/2021 COMPARISON: NONE HISTORY: Fluoroscopy time. Fluoroscopy was provided to the referring clinician.
== END 2021-12-28 18:00 | disposition home or self-care (01) ==
LOC: CATHCVL 11:15
PROVIDERS: ATTEND Surgery
DX: T82.590A Other mechanical complication of surgically created arteriovenous fistula, initial encounter (principal); N18.6 End stage renal disease; Z99.2 Dependence on renal dialysis; Z79.82 Long term (current) use of aspirin; Z88.0 Allergy status to penicillin; Z90.49 Acquired absence of other specified parts of digestive tract; Z79.01 Long term (current) use of anticoagulants
CPT/HCPCS: 37607; 36901; 36909; 76080; 80048; 85025; C1769 ×2; J2250; J2001; J3010; J1170; Q9967

== ENCOUNTER 2021-12-30 07:04 | Day surgery (SDC) | payer MEDICARE, OTHER ==
[~2021-12-30 07:04] MED LIST changes: -DEXAMETHASONE SOD PHOSPHATE 4 MG/ML 1 ML VIAL IV ONE; -HYDROmorphone 0.5 MG/0.5 ML SYRINGE IVP PRN; +LACTATED RINGERS 1,000 ML IV SCH; -ONDANSETRON 4 MG/2 ML VIAL IVP ONE; +TETRACAINE 0.5% OPHTH (PF) DROPS 4 ML BTL OP PRN; -VANCOMYCIN 1,500 MG in SODIUM CHLORIDE 0.9% 250 ML IVPB PRN
[2021-12-30] MEDS: CYCLOPENTOLATE 1% OPHTH SOLN 2 ML BTL OP PRN ×5 (07:42→08:07)
[2021-12-30] MEDS: PHENYLEPHRINE 2.5% OPHTH DRP 2ML OP PRN ×4 (07:45→08:01)
[2021-12-30] MEDS ORDERED: SODIUM CHLORIDE 0.9% 1,000 ML IV ONE (07:48)
[2021-12-30 07:58] LABS: Glucose,Whole Blood 142 mg/dL (75-99)
[2021-12-30 08:03] VITALS: TEMP 97
[2021-12-30] MEDS ORDERED: fentaNYL (PF) 50 MCG/ML 2 ML AMP ONE (08:53)
[2021-12-30] MEDS ORDERED: MIDAZOLAM 2 MG/2 ML VIAL ONE (08:53)
[2021-12-30] MEDS ORDERED: LIDOCAINE 1% (PF) 10MG/ML VIAL MISCELLANE ONE (09:10)
[2021-12-30] MEDS ORDERED: HYALURONATE SODIUM INTRAOCULAR 1 EACH SYRINGE (12MG/ML) INTRAOCULA ONE ×2 (09:10)
[2021-12-30] MEDS ORDERED: BALANCED SALT IRRIG SOLN COMB2 15 ML IRRIG.SOLN IRRIGATION ONE (09:10)
[2021-12-30] MEDS: MOXIFLOXACIN HCL 0.5% DROPS 3 ML BTL OP PRN ×2 (09:12→09:22)
[2021-12-30] MEDS: TIMOLOL 0.5% OPHTH DROPS 5 ML BTL OP PRN ×2 (09:12→09:22)
[2021-12-30] MEDS ORDERED: EPINEPHrine (PF) 0.3 ML in BALANCED SALT IRRIG SOLN COMB2 500 ML IRRIGATION ONE (09:13)
[2021-12-30] MEDS ORDERED: TRIAMCINOLONE ACETONIDE (PF) 40 MG/ML 1ML VIAL INTRAOCULA ONE (09:21)
[2021-12-30] MEDS ORDERED: ACETYLCHOLINE CHLORIDE 10 MG/ML 2 ML KIT INTRAOCULA ONE (09:46)
[2021-12-30] MEDS ORDERED: FLUORESCEIN STRIPS 1 MG STRIP LEFT EYE ONE (10:01)
--- NOTE | 2021-12-30 10:04 | P.OP ---
Date of Procedure: 12/30/21 Preoperative Diagnosis: NS & PSC & CS Postoperative Diagnosis: same Procedure(s) Performed: PIOL< OS Implants: [id number] 21.50 Anesthesia: MAC Surgeon: Henok Mooney Pathology: none sent Condition: stable Disposition: same day Indications for Procedure: blurry vision Operative Findings: pc rent, anterior vitrectomy, sulcus fixed lens.
[2021-12-30 10:40] VITALS: BP 119/75; PULSE 52; RESP 20
--- NOTE | 2021-12-30 15:03 | OP ---
OPERATIVE REPORT DATE OF SURGERY: 12/30/2021. PROCEDURE: Phacoemulsification of cataract and intraocular lens implant of the left eye. PREOPERATIVE DIAGNOSIS: Nuclear sclerosis, cortical sclerosis, posterior subcapsular cataract with history of intravitreal bleeding, panretinal photocoagulation and extensive changes from proliferative diabetic retinopathy. POSTOPERATIVE DIAGNOSES: Nuclear sclerosis, cortical sclerosis, posterior subcapsular cataract with history of intravitreal bleeding, panretinal photocoagulation and extensive changes from proliferative diabetic retinopathy with a posterior capsular rent. SURGEON: Dr. Henok Mooney. ANESTHESIA: Topical. ESTIMATED BLOOD LOSS: None. SPECIMEN TAKEN: None. NARRATIVE: After obtaining the appropriate consent, the patient was brought to the operating room. There he was placed under cardiac monitoring, prepped and draped in the usual sterile manner. He was approached from his left temporal side. At the 5 o'clock position, an MVR blade was used to create a paracentesis port. Through this opening 1% Xylocaine MPF 50:50 mixed with balanced salt solution was injected into the anterior chamber. This was followed by stabilization of the anterior chamber with Amvisc. At the 3 o'clock position, a 2.5 mm keratome was used to create a self-sealing corneal flap incision. Through this opening, a cystotome was introduced to begin a continuous tear capsulorrhexis, which was completed using the Utrata forceps. Hydrodissection and hydrodelineation of the lens were accomplished with balanced salt solution. This was followed by phacoemulsification of lens utilizing phaco chop, which was completed in 10.69 seconds at 71.8% power. Additional Xylocaine MPF was instilled into the anterior chamber. This was followed by removal of the remaining cortex along the posterior capsule in the equator of the bag. During one of the final stages of posterior capsular polishing, a small U-shaped rent was identified at the 11 o'clock area of the patient's eye. There was no appreciation of vitreous which had presented itself into the lens bag area, and Triesence was used to confirm that belief. However, additional an excess amount of Triesence remained within the capsular bag, and considering the possibility of drawing suction on an open area, it was decided to use a vitrectomy coaxially to try to remove that excess Triesence from the line of sight. In the process of removing the cloudy Triesence medication, additional suction was drawn and a tear then continued from the U-shaped tear across the line of sight of the posterior capsule. Care was taken to ensure that there was not any vitreous presenting itself and to make sure that there was none following through the anterior incisions. Amvisc was placed over the capsular rent and the choice of lens became a Bausch and Lomb LI61 AO 21.5 diopter, which became sulcus fixated after delivery into the anterior chamber. Attempts to capture the anterior capsular leaflet were unsuccessful due to the size of the anterior capsulorrhexis. However, the lens appeared to center up reasonably well. Miochol was then introduced to bring about pupillary miosis and some additional checks to confirm that there was no vitreous which had led from the posterior chamber into the anterior chamber or out the incisions. Some of the remaining viscoelastic was removed carefully from the anterior chamber and a temporal incision was closed with a single 10-0 nylon suture in an X fashion. The eye was then brought to normal intraocular pressure through the paracentesis port with balanced salt solution. He then received two drops of 0.5% timolol followed by two drops of moxifloxacin and was then lightly patched and shielded in the usual manner. There were no additional difficulties encountered during the procedure. He tolerated the procedure well and was returned to Outpatient Recovery in good condition. CHAD / LUCIEN: [id number] /
== END 2021-12-30 10:43 | disposition home or self-care (01) ==
LOC: OR 07:04
PROVIDERS: ATTEND Ophthalmology
DX: H25.13 Age-related nuclear cataract, bilateral (principal); E11.3391 Type 2 diabetes mellitus with moderate nonproliferative diabetic retinopathy without macular edema, right eye; H25.013 Cortical age-related cataract, bilateral; E11.3 Type 2 diabetes mellitus with ophthalmic complications; H25.043 Posterior subcapsular polar age-related cataract, bilateral; I10 Essential (primary) hypertension; N28.9 Disorder of kidney and ureter, unspecified; Z86.73 Personal history of transient ischemic attack (TIA), and cerebral infarction without residual deficits; Z79.899 Other long term (current) drug therapy; Z88.0 Allergy status to penicillin; Z83.3 Family history of diabetes mellitus; Z82.49 Family history of ischemic heart disease and other diseases of the circulatory system
CPT/HCPCS: 80051; 66984; C1780; J2250; J0171; J3010; J3300; J2001

== ENCOUNTER 2022-04-13 18:18 | Emergency (ER) | payer MEDICARE, OTHER ==
[2022-04-13 18:23] VITALS: TEMP 98.2
[2022-04-13 19:03] LABS: Basophils # (A) 0.1 k/uL (0-0.2); Basophils % (A) 1 %; Eosinophils # (A) 0.2 k/uL (0-0.7); Eosinophils % (A) 2 %; HCT 36.1 % (39.0-53.0); HGB 12.5 gm/dL (13.0-17.5); Lymphocytes # (A) 2.5 k/uL (1.0-4.8); Lymphocytes % (A) 29 %; MCH 32.9 pg (25.0-35.0); MCHC 34.5 g/dL (31.0-37.0); MCV 95.4 fL (80.0-100.0); Mean Platelet Volume 8.7; Monocytes # (A) 0.5 k/uL (0-1.0); Monocytes % (A) 5 %; Neutrophils # (A) 5.2 k/uL (1.3-7.7); Neutrophils % (A) 61 %; Platelet Count 252 k/uL (150-450); RBC 3.79 m/uL (4.30-5.90); RDW 13.4 % (11.5-15.5); WBC 8.6 k/uL (3.8-10.6)
[2022-04-13 19:13] LABS: Albumin 4.4 g/dL (3.5-5.0); Calcium 7.9 mg/dL (8.4-10.2); Magnesium 1.9 mg/dL (1.6-2.3); Partial Thromboplastin Time 26.8 sec (22.0-30.0); Potassium 3.7 mmol/L (3.5-5.1); Prothrombin Time 11.2 sec (9.0-12.0); Total Bilirubin 0.6 mg/dL (0.2-1.3); Total Protein 7.4 g/dL (6.3-8.2)
[2022-04-13 19:27] VITALS: BP 155/86; PULSE 44; RESP 16
--- NOTE | 2022-04-13 19:27 | ED ---
General Adult HPI - General Chief complaint: Arrhythmia/Palpitations Stated complaint: Afib Time Seen by Provider: 04/13/22 18:30 Source: patient, RN notes reviewed, old records reviewed Mode of arrival: ambulatory Limitations: no limitations - History of Present Illness Initial comments: 57-year-old male history of end-stage renal disease, etc. fibrillation presenting for evaluation of acute fibrillation. Patient was sent in at the request of his family friend for evaluation of atrial fibrillation. He was found to be in A. fib by his primary care physician as well as rate control. He has a history of A. fib and history of CVA his currently on Eliquis. Patient himself has no complaints, no chest pain, no dyspnea, no new headache or new focal weakness or numbness. He had hemodialysis performed yesterday without any issues. No abdominal pain. No vomiting or diarrhea. - Related Data Home Medications Medication Instructions Recorded Confirmed Apixaban [Eliquis] 5 mg PO BID 05/25/21 12/28/21 Atorvastatin Calcium [Lipitor] 80 mg PO HS 05/25/21 12/28/21 cloNIDine [Catapres-TTS] 1 patch TRANSDERM ROMERO 05/25/21 12/28/21 Isosorbide Mononitrate ER [Imdur] 30 mg PO BID 07/08/21 12/28/21 Doxazosin [Cardura] 2 mg PO QAM 12/24/21 12/28/21 lisinopriL [Zestril] 5 mg PO MOWEFR 12/24/21 12/28/21 Previous Rx's Medication Instructions Recorded amLODIPine [Norvasc] 10 mg PO HS #30 tab 09/17/20 Allergies Allergy/AdvReac Type Severity Reaction Status Date / Time Penicillins Allergy Swelling Verified 04/13/22 18:22 Review of Systems ROS Statement: Those systems with pertinent positive or pertinent negative responses have been documented in the HPI. ROS Other: All systems not noted in ROS Statement are negative. Past Medical History Past Medical History: Atrial Fibrillation, CVA/TIA, Diabetes Mellitus, Hypertension Additional Past Medical History / Comment(s): HAVING LEFT UPPER FISTULAGRAMON ON 12/28/21. Stage IV chronic kidney disease (hemodialysis M-W-F), has current device in upper rt chest for dialysis. Diet controlled diabetes. Right hand/leg weakness d/t CVA. Hearing loss left ear effecting balance experiencing dizziness. History of Any Multi-Drug Resistant Organisms: None Reported Past Surgical History: Adenoidectomy, Appendectomy, Tonsillectomy Additional Past Surgical History / Comment(s): Dialysis device implanted Past Anesthesia/Blood Transfusion Reactions: Previous Problems w/ Anesthesia, Motion Sickness Additional Past Anesthesia/Blood Transfusion Reaction / Comment(s): Hard time coming out of anesthesia and waking up Past Psychological History: No Psychological Hx Reported Smoking Status: Never smoker Past Alcohol Use History: None Reported Past Drug Use History: None Reported - Past Family History Father Additional Family Medical History / Comment(s): leukemia Mother Family Medical History: Diabetes Mellitus, Hypertension General Exam Limitations: no limitations General appearance: alert, in no apparent distress Head exam: Present: atraumatic, normocephalic Eye exam: Present: normal appearance, PERRL ENT exam: Present: normal exam Neck exam: Present: normal inspection. Absent: tenderness, meningismus Respiratory exam: Present: normal lung sounds bilaterally. Absent: respiratory distress, wheezes Cardiovascular Exam: Present: regular rate, irregular rhythm GI/Abdominal exam: Present: soft. Absent: distended, tenderness Extremities exam: Present: normal inspection, normal capillary refill. Absent: calf tenderness Neurological exam: Present: alert, oriented X3, CN II-XII intact Psychiatric exam: Present: normal affect, normal mood Skin exam: Present: warm, dry, intact. Absent: cyanosis, diaphoretic Course Vital Signs 04/13/22 18:20 Temperature 98.2 F Pulse Rate 56 L Respiratory 18 Rate Blood Pressure 152/81 O2 Sat by Pulse 99 Oximetry EKG Findings - EKG Comments: EKG Findings:: EKG atrial flutter with 41 conduction, left axis, right bundle branch block, rate of 67, QRS duration 138, QTC 469. Medical Decision Making - Medical Decision Making 57-year-old male with history of atrial fibrillation presenting with chief complaint of being in atrial fibrillation. Patient really has no complaints but was urged to present to the emergency department for evaluation. He is in a rate controlled atrial flutter with 4-1 conduction. He has a stable blood pressure. He has a normal white blood cell count, stable anemia, normal electrolytes. He does have end-stage renal disease but does not appear fluid overloaded. He has no complaints and will be discharged at this time. He should follow with his primary care physician. - Lab Data Result diagrams: 04/13/22 18:52 04/13/22 18:52 Lab Results 04/13/22 04/13/22 04/13/22 Range/Units 18:52 18:52 18:52 WBC 8.6 (3.8-10.6) k/uL RBC 3.79 L (4.30-5.90) m/uL Hgb 12.5 L (13.0-17.5) gm/dL Hct 36.1 L (39.0-53.0) % MCV 95.4 (80.0-100.0) fL MCH 32.9 (25.0-35.0) pg MCHC 34.5 (31.0-37.0) g/dL RDW 13.4 (11.5-15.5) % Plt Count 252 (150-450) k/uL MPV 8.7 Neutrophils % 61 % Lymphocytes % 29 % Monocytes % 5 % Eosinophils % 2 % Basophils % 1 % Neutrophils # 5.2 (1.3-7.7) k/uL Lymphocytes # 2.5 (1.0-4.8) k/uL Monocytes # 0.5 (0-1.0) k/uL Eosinophils # 0.2 (0-0.7) k/uL Basophils # 0.1 (0-0.2) k/uL PT 11.2 (9.0-12.0) sec INR 1.0 (<1.2) APTT 26.8 (22.0-30.0) sec Sodium 138 (137-145) mmol/L Potassium 3.7 (3.5-5.1) mmol/L Chloride 96 L (98-107) mmol/L Carbon Dioxide 28 (22-30) mmol/L Anion Gap 14 mmol/L BUN 71 H (9-20) mg/dL Creatinine 8.42 H* (0.66-1.25) mg/dL Est GFR (CKD-EPI)AfAm 7 (>60 ml/min/1.73 sqM) Est GFR (CKD-EPI)NonAf 6 (>60 ml/min/1.73 sqM) Glucose 180 H (74-99) mg/dL Calcium 7.9 L (8.4-10.2) mg/dL Magnesium 1.9 (1.6-2.3) mg/dL Total Bilirubin 0.6 (0.2-1.3) mg/dL AST 17 (17-59) U/L ALT 12 (4-49) U/L Alkaline Phosphatase 72 (38-126) U/L Total Protein 7.4 (6.3-8.2) g/dL Albumin 4.4 (3.5-5.0) g/dL Disposition Clinical Impression: Atrial flutter Disposition: HOME SELF-CARE Condition: Fair Instructions (If sedation given, give patient instructions): Atrial Flutter (ED) Is patient prescribed a controlled substance at d/c from ED?: No Referrals: Larry Fuentes MD [Primary Care Provider] - 1-2 days Time of Disposition: 19:27
== END 2022-04-13 19:40 | disposition home or self-care (01) ==
LOC: EC 18:18
DX: I48.92 Unspecified atrial flutter (principal); E11.9 Type 2 diabetes mellitus without complications; I12.9 Hypertensive chronic kidney disease with stage 1 through stage 4 chronic kidney disease, or unspecified chronic kidney disease; N18.4 Chronic kidney disease, stage 4 (severe); Z86.73 Personal history of transient ischemic attack (TIA), and cerebral infarction without residual deficits; Z88.0 Allergy status to penicillin; Z79.899 Other long term (current) drug therapy
CPT/HCPCS: 36415; 80053; 83735; 85025; 85610; 85730; 93005; 99283

== ENCOUNTER 2022-04-21 06:37 | Day surgery (SDC) | payer MEDICARE, OTHER ==
[2022-04-16 15:42] VITALS: BMI 38.7
[~2022-04-21 06:37] MED LIST changes: -LIDOCAINE 1% (10MG/ML) FOR IV START INTRADERMA PRN; +MOXIFLOXACIN HCL 0.5% DROPS 3 ML BTL OP PRN; +TIMOLOL 0.5% OPHTH DROPS 5 ML BTL OP PRN
[2022-04-21 07:24] LABS: Glucose,Whole Blood 124 mg/dL (70-110)
[2022-04-21 07:26] VITALS: RESP 16; TEMP 98.2
[2022-04-21] MEDS: CYCLOPENTOLATE 1% OPHTH SOLN 2 ML BTL OP PRN ×3 (07:30→07:42)
[2022-04-21] MEDS: PHENYLEPHRINE 2.5% OPHTH DRP 2ML OP PRN ×3 (07:33→07:45)
[2022-04-21] MEDS ORDERED: fentaNYL (PF) 50 MCG/ML 2 ML AMP ONE (08:20)
[2022-04-21] MEDS ORDERED: MIDAZOLAM 2 MG/2 ML VIAL ONE (08:20)
[2022-04-21] MEDS ORDERED: EPINEPHrine (PF) 0.3 ML in BALANCED SALT IRRIG SOLN COMB2 500 ML IRRIGATION ONE (08:32)
[2022-04-21] MEDS ORDERED: HYALURONATE SODIUM INTRAOCULAR 1 EACH SYRINGE (12MG/ML) INTRAOCULA ONE (08:33)
[2022-04-21] MEDS ORDERED: BALANCED SALT IRRIG SOLN COMB2 15 ML IRRIG.SOLN INTRAOCULA ONE (08:33)
[2022-04-21] MEDS ORDERED: LIDOCAINE 1% (PF) 10MG/ML VIAL MISCELLANE ONE (08:34)
--- NOTE | 2022-04-21 08:57 | P.OP ---
Date of Procedure: 04/21/22 Preoperative Diagnosis: NS & CS & PSC Postoperative Diagnosis: same Procedure(s) Performed: PIOL, OD Implants: [id number] 21.50 Anesthesia: MAC Surgeon: Henok Mooney Pathology: none sent Condition: stable Disposition: same day Indications for Procedure: blurry vision Operative Findings: no complications
[2022-04-21 09:28] VITALS: BP 152/77; PULSE 62
--- NOTE | 2022-04-21 21:57 | OP ---
OPERATIVE REPORT DATE OF SURGERY: / PROCEDURE: Phacoemulsification of cataract and intraocular lens implant of the right eye. PREOPERATIVE DIAGNOSIS: Nuclear sclerosis, cortical sclerosis, posterior subcapsular cataract. POSTOPERATIVE DIAGNOSIS: Nuclear sclerosis, cortical sclerosis, posterior subcapsular cataract. ESTIMATED BLOOD LOSS: Zero. SPECIMEN TAKEN: None. NARRATIVE: After obtaining the appropriate consent, the patient was brought to the operating room, where the patient was placed under cardiac monitoring and prepped and draped in the usual sterile manner. At the 11 o'clock position a 15 degree super sharp blade was used to create a paracentesis followed by instillation of 1% Xylocaine MPF 50:50 mix with BSS into the anterior chamber. This was followed by Amvisc to stabilize the anterior chamber. At the 9 o'clock position a self-sealing corneal flap incision was created using 2.8 mm arvind keratome. A cystotome was used to initiate a continuous tear capsulorrhexis which was completed with the Utrata forceps. A Binkhorst cannula was used to hydrodissect the lens nucleus followed by hydrodelineation. Phacoemulsification of the lens was performed utilizing phacochop in 6.36 seconds at 11% power. The remaining cortical material was removed using the irrigation aspiration mode followed by additional 1% Xylocaine MPF into the anterior chamber followed by viscoelastic to stabilize the capsular bag. A Bausch and Lomb MX60E 21.5 diopter posterior chamber intraocular lens posterior chamber lens was placed into the capsular bag without difficulty. The remaining viscoelastic material was removed from the anterior chamber with the irrigation/aspiration. Balanced salt solution was used to normalize the intraocular pressure. The incision was checked for watertight integrity. The patient then received two drops of 0.5% timolol followed by two drops Vigamox, was lightly patched and shielded in the usual manner. There were no complications from the procedure. The patient tolerated the procedure well and was returned to recovery in good condition. MMODL / IJN: [id number] /
== END 2022-04-21 09:41 | disposition home or self-care (01) ==
LOC: OR 06:37
PROVIDERS: ATTEND Ophthalmology
DX: E11.36 Type 2 diabetes mellitus with diabetic cataract (principal); H25.011 Cortical age-related cataract, right eye; H25.11 Age-related nuclear cataract, right eye; H25.041 Posterior subcapsular polar age-related cataract, right eye; E11.39 Type 2 diabetes mellitus with other diabetic ophthalmic complication; H43.12 Vitreous hemorrhage, left eye; H43.02 Vitreous prolapse, left eye; H21.562 Pupillary abnormality, left eye; E11.3391 Type 2 diabetes mellitus with moderate nonproliferative diabetic retinopathy without macular edema, right eye; E11.3 Type 2 diabetes mellitus with ophthalmic complications; Z98.42 Cataract extraction status, left eye; Z96.1 Presence of intraocular lens; I12.9 Hypertensive chronic kidney disease with stage 1 through stage 4 chronic kidney disease, or unspecified chronic kidney disease; E11.22 Type 2 diabetes mellitus with diabetic chronic kidney disease; N18.9 Chronic kidney disease, unspecified; Z98.890 Other specified postprocedural states; G47.33 Obstructive sleep apnea (adult) (pediatric); Z86.73 Personal history of transient ischemic attack (TIA), and cerebral infarction without residual deficits; Z90.49 Acquired absence of other specified parts of digestive tract; Z83.3 Family history of diabetes mellitus; Z82.49 Family history of ischemic heart disease and other diseases of the circulatory system; Z79.02 Long term (current) use of antithrombotics/antiplatelets; Z79.899 Other long term (current) drug therapy; Z88.0 Allergy status to penicillin
CPT/HCPCS: 66984; V2632; J2250; J0171; J3010; J2001

== ENCOUNTER → 2022-05-04 | Outpatient (CLI) | payer MEDICARE, OTHER ==
--- NOTE | 2022-05-04 08:22 | CT ---
EXAMINATION TYPE: CT iac wo con CT DLP: 270 mGycm, Automated exposure control for dose reduction was used. DATE OF EXAM: 05/04/2022 8:05 AM INDICATION: Patient age:Male; 57 years old; Reason for study: H93.19 tinnitus; COMPARISON: CT brain 05/25/2021. TECHNIQUE: Multiple thin axial images were obtained through the temporal bones and internal auditory canals. Additional coronal reformatted images were obtained. No IV contrast was utilized. FINDINGS: Right Temporal Bone: External Ear: The external auditory canal is unremarkable, The tympanic membrane is present and unrem arkable. Middle Ear: The ossicles demonstrate a normal appearance. Prussak's space is clear and the scutum i s intact. There is no evidence of osseous erosion and the tegmen tympani is intact. Inner Ear: Cochlea, vestibule and semi circular canals are unremarkable. No evidence of carotid latisha l dehiscence. Two and a half turns of the cochlea are identified. The vestibular aqueduct is not enl arged. Mastoid Air Cells: The mastoid air cells are clear. The tegmen mastoideum is intact. The aditus ad an trum is clear. Internal Auditory Canal: The internal auditory canal is unremarkable. Left Temporal Bone: External Ear: The external auditory canal is unremarkable, The tympanic membrane is present and unrem arkable. Middle Ear: The ossicles demonstrate a normal appearance. Prussak's space is clear and the scutum i s intact. There is no evidence of osseous erosion and the tegmen tympani is intact. Inner Ear: Cochlea, vestibule and semi circular canals are unremarkable. No evidence of carotid latisha l dehiscence. Two and a half turns of the cochlea are identified. The vestibular aqueduct is not enl arged. Mastoid Air Cells: The mastoid air cells are clear. The tegmen mastoideum is intact. The aditus ad an trum is clear. Internal Auditory Canal: The internal auditory canal is unremarkable. IMPRESSION: Normal internal auditory canal study.
== END | disposition home or self-care (01) ==
LOC: RADCTMAIN 07:31
PROVIDERS: ATTEND Otolaryngology
DX: H93.19 Tinnitus, unspecified ear (principal); H91.90 Unspecified hearing loss, unspecified ear
CPT/HCPCS: 70480

== ENCOUNTER 2022-06-29 20:20 | Emergency (ER) | payer MEDICARE, OTHER ==
[2022-06-29 20:29] VITALS: BP 162/84; PULSE 79; RESP 20; TEMP 98.2
[2022-06-29] MEDS ORDERED: HYDROcodone/APAP 5-325MG 1 EACH TAB PO STA (20:42)
[2022-06-29] MEDS ORDERED: ACET/COD 300 MG/30 MG STARTER PACK 6 TAB BTL PO STA (20:43)
--- NOTE | 2022-06-29 21:04 | ED ---
Extremity Problem HPI - General Chief complaint: Extremity Problem,Nontraumatic Stated complaint: knee pain Time Seen by Provider: 06/29/22 20:34 Source: patient, RN notes reviewed Mode of arrival: wheelchair Limitations: no limitations - History of Present Illness Initial comments: This is a pleasant 57-year-old male with a history of atrial fibrillation, on Eliquis. Patient states that he started having pain in his right knee 2 days ago. Patient states pain is in the anterior aspect of the, exacerbated by movement. Exacerbated by ambulation. Patient denying any injury states he was watching his son do some work on his house 2 days ago. Patient denies any other joint problems. Denying any other symptomology. No bleeding. No easy bruisin g. No headache, no fever or chills, no changes in vision or hearing, no sore throat or difficulty with speech, no neck pain, no chest pain or shortness of breath, no abdominal pain, no nausea or vomiting, no changes in urination or bowel movements, no numbness or tingling, no skin rashes or lesions. Past medical, surgical, social, and family history reviewed. - Related Data Home Medications Medication Instructions Recorded Confirmed Apixaban [Eliquis] 5 mg PO BID 05/25/21 04/21/22 Atorvastatin Calcium [Lipitor] 80 mg PO HS 05/25/21 04/21/22 cloNIDine [Catapres-TTS] 1 patch TRANSDERM ROMERO 05/25/21 04/21/22 Isosorbide Mononitrate ER [Imdur] 30 mg PO BID 07/08/21 04/21/22 Doxazosin [Cardura] 2 mg PO QAM 12/24/21 04/21/22 lisinopriL [Zestril] 5 mg PO MOWEFR 12/24/21 04/21/22 Previous Rx's Medication Instructions Recorded amLODIPine [Norvasc] 10 mg PO HS #30 tab 09/17/20 methylPREDNISolone Dose Pack 4 mg PO DIRECTED #21 tab 06/29/22 [Medrol Dose Pack] Allergies Allergy/AdvReac Type Severity Reaction Status Date / Time Penicillins Allergy Swelling Verified 06/29/22 20:29 Review of Systems ROS Statement: Those systems with pertinent positive or pertinent negative responses have been documented in the HPI. ROS Other: All systems not noted in ROS Statement are negative. Past Medical History Past Medical History: Atrial Fibrillation, CVA/TIA, Diabetes Mellitus, Dialysis, Hypertension Additional Past Medical History / Comment(s): HAVING LEFT UPPER FISTULAGRAMON ON 12/28/21. Stage IV chronic kidney disease (hemodialysis M-W-F), has current device in upper rt chest for dialysis. Diet controlled diabetes. Right hand/leg weakness d/t CVA. Hearing loss left ear effecting balance experiencing dizziness. History of Any Multi-Drug Resistant Organisms: None Reported Past Surgical History: Adenoidectomy, Appendectomy, Tonsillectomy Additional Past Surgical History / Comment(s): Dialysis device implanted Past Anesthesia/Blood Transfusion Reactions: Previous Problems w/ Anesthesia, Motion Sickness Additional Past Anesthesia/Blood Transfusion Reaction / Comment(s): Hard time coming out of anesthesia and waking up Past Psychological History: No Psychological Hx Reported Smoking Status: Never smoker Past Alcohol Use History: None Reported Past Drug Use History: None Reported - Past Family History Father Additional Family Medical History / Comment(s): leukemia Mother Family Medical History: Diabetes Mellitus, Hypertension General Exam Limitations: no limitations General appearance: alert, in no apparent distress Head exam: Present: atraumatic, normocephalic, normal inspection Eye exam: Present: normal appearance, PERRL, EOMI. Absent: scleral icterus, conjunctival injection, periorbital swelling ENT exam: Present: normal exam, mucous membranes moist Neck exam: Present: normal inspection. Absent: tenderness, meningismus, lymphadenopathy Respiratory exam: Present: normal lung sounds bilaterally. Absent: respiratory distress, wheezes, rales, rhonchi, stridor Cardiovascular Exam: Present: regular rate, normal rhythm, normal heart sounds. Absent: systolic murmur, diastolic murmur, rubs, gallop, clicks GI/Abdominal exam: Present: soft. Absent: distended, tenderness, guarding, rebound, rigid Extremities exam: Present: tenderness (Anterior aspect right knee), normal capillary refill, other (Negative Homans sign). Absent: pedal edema, calf tenderness Right Hip exam: Present: normal inspection, full ROM. Absent: tenderness Upper Leg exam: Present: normal inspection, full ROM. Absent: tenderness Knee exam: Present: tenderness, swelling (Consistent with effusion), effusion (There is no erythema. There is a mild effusion with bulging sign.), full knee extension. Absent: full ROM (Patient able to flex the knee to about 90 but then complains of pain. Patient does have full extension.), abrasion, laceration, ecchymosis, deformity, crepitus, dislocation, erythema, posterior draw sign, pain/laxity with valgus, pain/laxity with varus Lower Leg exam: Present: normal inspection. Absent: tenderness, swelling, abrasion, laceration, ecchymosis, deformity, crepitus, dislocation, erythema, Homans' sign Ankle exam: Present: normal inspection, full ROM Foot/Toe exam: Present: normal inspection, full ROM. Absent: tenderness Neurovascular tendon exam: Present: no vascular compromise. Absent: pulse deficit, abnormal cap refill, pallor Back exam: Present: normal inspection Neurological exam: Present: alert, oriented X3, CN II-XII intact Psychiatric exam: Present: normal affect, normal mood Skin exam: Present: warm, dry, intact, normal color. Absent: rash Course Vital Signs 06/29/22 20:26 Temperature 98.2 F Pulse Rate 79 Respiratory 20 Rate Blood Pressure 162/84 O2 Sat by Pulse 99 Oximetry Medical Decision Making - Medical Decision Making Patient's presenting symptomology appears to be consistent with a hemarthrosis involving the right knee joint. Does not appear to be consistent with infectious process. There is no erythema. No fever. This is relatively mild and can be treated conservatively. Will treat with pain medication, compression, elevation, knee immobilizer, and orthopedic follow-up. Per radiology there was some edema noted to the prepatellar space. Alkaline treat the patient for bursitis as well. We'll try a Medrol Dosepak. Patient is on hemodialysis. Patient not diabetic. No evidence of infectious process. Patient was told to return to the ER for any signs or symptoms worsen. Told to return immediately if any other problems arise. All questions answered. Treatment plan discussed. Patient in agreement Every effort has been made to ensure accuracy of this dictation. However, due to the limitations of electronic medical records and dictation devices, errors in charting still occur. Straightedge Man Dr. Rowland - Radiology Data Radiology results: report reviewed, image reviewed Disposition Clinical Impression: Effusion of right knee joint, Arthralgia of right knee Disposition: HOME SELF-CARE Condition: Good Instructions (If sedation given, give patient instructions): Swollen Knee Joint (ED) Additional Instructions: Follow-up with your regular physician as directed. Return to the ER immediately if any symptoms worsen, new symptoms arise, or any other problems develop. Knee immobilizer off and on as tolerated. Follow-up with orthopedics. Call tomorrow a.m. for follow-up appointment. Do not take the acetaminophen/codeine together with regular Tylenol Seybold have acetaminophen in it. He can apply ice to the affected area 20 minutes on and off for times daily. Elevate the affected area when possible. Follow-up with your regular physician as directed. Return to the ER immediately if any symptoms worsen, new symptoms arise, or any other problems develop. Prescriptions: methylPREDNISolone Dose Pack [Medrol Dose Pack] 4 mg PO DIRECTED #21 tab Is patient prescribed a controlled substance at d/c from ED?: No Referrals: Srinivas Wilson MD [STAFF PHYSICIAN] - 07/02/22
--- NOTE | 2022-06-29 21:23 | XR ---
EXAMINATION TYPE: XR knee complete RT DATE OF EXAM: 06/29/2022 8:55 PM INDICATION: Patient age:Male; 57 years old; Reason for study: Right knee pain/swelling;. COMPARISON: Knee radiograph 02/07/2022 TECHNIQUE: The Right knee(s) was examined in 3 projections. Frontal, lateral and oblique. FINDINGS: Osteophyte formation of the tibial plateau, femoral condyles and patella. No evidence of any acute o sseous pathology, joint space narrowing, or joint effusion is noted. Atherosclerosis of the arterial vasculature. Fabella is present. Soft tissue swelling with anterior soft tissues to the knee. IMPRESSION: 1. No acute osseous pathology. 2. Moderate tricompartmental osteoarthritic changes. 3. Prepatellar soft tissue swelling suggested.
== END 2022-06-29 22:02 | disposition home or self-care (01) ==
LOC: EC 20:20
DX: M25.461 Effusion, right knee (principal); E11.9 Type 2 diabetes mellitus without complications; I48.91 Unspecified atrial fibrillation; I12.9 Hypertensive chronic kidney disease with stage 1 through stage 4 chronic kidney disease, or unspecified chronic kidney disease; N18.4 Chronic kidney disease, stage 4 (severe); Z99.2 Dependence on renal dialysis; Z79.899 Other long term (current) drug therapy; Z79.01 Long term (current) use of anticoagulants; Z88.0 Allergy status to penicillin
CPT/HCPCS: 73562; 99283; L1830 ×2

== ENCOUNTER 2022-12-30 10:51 | Day surgery (SDC) | payer MEDICARE, OTHER ==
[~2022-12-30 10:51] MED LIST changes: +ACETAMINOPHEN TAB 500 MG TAB PO PRN; +HEPARIN SODIUM,PORCINE/PF 5,000 UNIT/0.5 ML SYRINGE SQ PRN; -LACTATED RINGERS 1,000 ML IV SCH; -MOXIFLOXACIN HCL 0.5% DROPS 3 ML BTL OP PRN; -TETRACAINE 0.5% OPHTH (PF) DROPS 4 ML BTL OP PRN; -TIMOLOL 0.5% OPHTH DROPS 5 ML BTL OP PRN; +ceFAZolin 3 GM in SODIUM CHLORIDE 0.9% 100 ML IVPB PRN
[2022-12-30] MEDS ORDERED: ONDANSETRON 4 MG/2 ML VIAL IVP ONE (11:12)
[2022-12-30] MEDS ORDERED: DEXAMETHASONE SOD PHOSPHATE 4 MG/ML 1 ML VIAL IV ONE (11:12)
[2022-12-30] MEDS ORDERED: LIDOCAINE 1% (10MG/ML) FOR IV START INTRADERMA PRN (11:12)
[2022-12-30] MEDS ORDERED: HYDROmorphone 0.5 MG/0.5 ML SYRINGE IVP PRN (11:12)
[2022-12-30] MEDS ORDERED: LACTATED RINGERS 1,000 ML IV SCH (11:12)
[2022-12-30] MEDS ORDERED: SODIUM CHLORIDE 0.9% 1,000 ML IV ONE (11:26)
[2022-12-30 11:44] LABS: Glucose,Whole Blood 114 mg/dL (70-110)
--- NOTE | 2022-12-30 12:00 | P.GSHP ---
History of Present Illness H&P Date: 12/30/22 Chief Complaint: Renal failure 57-year-old male here today for peritoneal dialysis catheter placement. Patient currently on hemodialysis. He was last seen in October. No history of hernias currently. Past Medical History Past Medical History: Atrial Fibrillation, CVA/TIA, Diabetes Mellitus, Dialysis, Hypertension, Osteoarthritis (OA), Renal Disease, Sleep Apnea/CPAP/BIPAP Additional Past Medical History / Comment(s): Stage IV chronic kidney disease (hemodialysis M-W-F), has current device in upper rt chest for dialysis. Diet controlled diabetes. Right hand/leg weakness d/t CVA. Hearing loss/DEAF left ear effecting balance experiencing dizziness. History of Any Multi-Drug Resistant Organisms: None Reported Past Surgical History: Adenoidectomy, Appendectomy, Tonsillectomy Additional Past Surgical History / Comment(s): Dialysis device implanted, FISTULAGRAM. Past Anesthesia/Blood Transfusion Reactions: Previous Problems w/ Anesthesia, Motion Sickness Additional Past Anesthesia/Blood Transfusion Reaction / Comment(s): Hard time coming out of anesthesia and waking up Past Psychological History: No Psychological Hx Reported Smoking Status: Never smoker Past Alcohol Use History: None Reported Past Drug Use History: None Reported - Past Family History Father Additional Family Medical History / Comment(s): leukemia Mother Family Medical History: Diabetes Mellitus, Hypertension Medications and Allergies Home Medications Medication Instructions Recorded Confirmed Type amLODIPine [Norvasc] 10 mg PO HS #30 tab 09/17/20 12/27/22 Rx Apixaban [Eliquis] 5 mg PO BID 05/25/21 12/27/22 History Atorvastatin Calcium [Lipitor] 80 mg PO HS 05/25/21 12/27/22 History Isosorbide Mononitrate ER [Imdur] 30 mg PO BID 07/08/21 12/27/22 History Doxazosin [Cardura] 2 mg PO BID 12/24/21 12/27/22 History lisinopriL [Zestril] 5 mg PO MOWEFR 12/24/21 12/27/22 History Allergies Allergy/AdvReac Type Severity Reaction Status Date / Time Penicillins Allergy Swelling Verified 12/30/22 11:26 Surgical - Exam Vital Signs Temp Pulse Resp BP Pulse Ox 97.5 F L 73 16 175/80 97 12/30/22 11:30 12/30/22 11:30 12/30/22 11:30 12/30/22 11:30 12/30/22 11:30 Physical exam: General: Well-developed, well-nourished HEENT: Normocephalic, sclerae nonicteric Abdomen: Nontender, nondistended Extremities: No edema Neuro: Alert and oriented Results - Labs Abnormal Lab Results - Last 24 Hours (Table) 12/30/22 Range/Units 11:42 POC Glucose (mg/dL) 114 H (70-110) mg/dL Assessment and Plan (1) Renal failure Narrative/Plan: Will proceed with peritoneal dialysis catheter placement at this time. Risks of bleeding, infection, scarring, poor function, fluid leak, hernia, possible need for revision, inability to place catheter all reviewed. The patient understands and wishes to proceed. Current Visit: Yes Status: Acute Code(s): N19 - UNSPECIFIED KIDNEY FAILURE SNOMED Code(s): 00687078
[2022-12-30] MEDS ORDERED: PROPOFOL 10 MG/ML 20 ML VIAL IV ONE (12:20)
[2022-12-30] MEDS ORDERED: GLYCOPYRROLATE 0.2 MG/ML 2 ML VIAL ONE (12:20)
[2022-12-30] MEDS ORDERED: fentaNYL (PF) 50 MCG/ML 2 ML AMP ONE (12:20)
[2022-12-30] MEDS ORDERED: SUCCINYLCHOLINE CHLORIDE 200 MG/10 ML VIAL IV ONE (12:20)
[2022-12-30] MEDS ORDERED: LIDOCAINE 2% INJ 20 MG/ML (2 ML VIAL) ONE (12:20)
[2022-12-30] MEDS ORDERED: ROCURONIUM 10 MG/ML (5 ML VIAL) IV ONE (12:20)
[2022-12-30] MEDS ORDERED: NEOSTIGMINE 1 MG/ML 10 ML VIAL ONE (12:20)
[2022-12-30] MEDS ORDERED: MIDAZOLAM 2 MG/2 ML VIAL ONE (12:20)
[2022-12-30] MEDS ORDERED: PHENYLEPHRINE-0.9% NACL SYG 1,000 MCG/10 ML SYRINGE ONE (12:20)
[2022-12-30] MEDS ORDERED: BUPIVACAIN-EPI 0.25%-1:200,000 30 ML VIAL SQ ONE ×2 (12:24→12:44)
[2022-12-30] MEDS ORDERED: MINERAL OIL 1 APPLIC/ML OIL TOPICAL ONE ×2 (12:24→12:46)
[2022-12-30] MEDS ORDERED: NALOXONE 0.4 MG/ML 1 ML VIAL IV PRN (13:18)
[2022-12-30] MEDS ORDERED: ACETAMINOPHEN TAB 325 MG TAB PO PRN (13:24)
[2022-12-30] MEDS ORDERED: HYDROcodone/APAP 5-325MG 1 EACH TAB PO PRN (13:24)
[2022-12-30 13:28] VITALS: TEMP 97.2
--- NOTE | 2022-12-30 13:31 | P.OP ---
Date of Procedure: 12/30/22 Procedure(s) Performed: PREOPERATIVE DIAGNOSIS: Renal failure POSTOPERATIVE DIAGNOSIS: Same PROCEDURE: Peritoneal dialysis catheter insertion SURGEON: Ty EBL: Minimal ANESTHESIA: Sedation plus local COMPLICATIONS: None OPERATIVE PROCEDURE: The patient was placed in the operative table in the supine position. The abdomen was prepped and draped in usual sterile fashion. A small vertical incision was made in the left periumbilical location. Dissection down through the subcutaneous tissues took place using electrocautery. The anterior rectus was divided vertically using the scalpel. The rectus was bluntly. The posterior rectus was visualized. An 0 Vicryl pursestring was placed. A small opening in the posterior rectus fascia and peritoneum took place using a Metzenbaum scissors. There were no adhesions to the suture that was placed. The pigtail catheter was advanced into the pelvis over a stylette. No resistance was met. The inner cuff was secured to the fascia using the 0 Vicryl pursestring that was placed. The catheter was tunneled to an exit site in the right lateral lower quadrant. The catheter was connected to the 1 L bag of saline and approximated 800 mL of saline was easily introduced into the peritoneal cavity. The fluid was then allowed to evacuate. The majority of the fluid was returned. The anterior rectus fascia was then reapproximated using a running 0 Vicryl stitch. The subcutaneous tissues reprepped using 3-0 Vicryl sutures and the skin using 4-0 Monocryl sutures. The outpatient dialysis adapter was applied to the end of the catheter. Sterile dressings were then applied after skin glue was placed over the incision. DISPOSITION: Stable to recovery room
[2022-12-30 14:28] VITALS: BP 121/81; PULSE 60; RESP 16
== END 2022-12-30 14:46 | disposition home or self-care (01) ==
LOC: OR 10:51
PROVIDERS: ATTEND Surgery
DX: N18.4 Chronic kidney disease, stage 4 (severe) (principal); I12.9 Hypertensive chronic kidney disease with stage 1 through stage 4 chronic kidney disease, or unspecified chronic kidney disease; I48.91 Unspecified atrial fibrillation; M19.90 Unspecified osteoarthritis, unspecified site; G47.30 Sleep apnea, unspecified; E11.22 Type 2 diabetes mellitus with diabetic chronic kidney disease; Z86.73 Personal history of transient ischemic attack (TIA), and cerebral infarction without residual deficits; Z90.49 Acquired absence of other specified parts of digestive tract; Z90.89 Acquired absence of other organs; Z83.3 Family history of diabetes mellitus; Z79.899 Other long term (current) drug therapy; Z79.01 Long term (current) use of anticoagulants; Z88.0 Allergy status to penicillin
CPT/HCPCS: 84132; 49418; C1752; J2250; J0330; J1100; J2710; J0690; J2405; J3010; J2370; J2704; J1644; J2001

== ENCOUNTER 2023-02-01 21:10 | Emergency (ER) | payer MEDICARE, OTHER ==
[2023-02-01 21:17] VITALS: TEMP 98.3
[2023-02-01 21:31] LABS: Glucose,Whole Blood 146 mg/dL (70-110)
--- NOTE | 2023-02-01 21:44 | ED ---
General Adult HPI - General Chief complaint: Weakness Stated complaint: Leg weakness Time Seen by Provider: 02/01/23 21:27 Source: patient Mode of arrival: wheelchair Limitations: no limitations - History of Present Illness Initial comments: This patient is a 57-year-old man who presents to have evaluation for a number of symptoms involving his right leg that started this evening after 6 PM. The patient states that he had just done his peritoneal dialysis exchange at 6 PM, then gone to lie down. He states he was awakened from sleep by his right leg twitching. He states he does have history of twitching of the right leg but this was much more vigorous than his usual he was not able to stop it. He states that he tried to get up and then couldn't stand on his right leg. He felt he should have an evaluation here. Currently no pain and he states that the twitching has slowed. The patient also relates that he had a stroke that had left him with right-sided weakness and that it took him a number of months to be able to use his right side, both arm and leg, and also to regain speech. He states that there is some residual right-sided weakness. Onset/Timin -: hour(s) Location: right, lower extremity Radiation: non-radiation Quality: other (Twitching) Consistency: now resolved Improves with: none Worsens with: none Associated Symptoms: weakness Treatments Prior to Arrival: none - Related Data Home Medications Medication Instructions Recorded Confirmed Apixaban [Eliquis] 5 mg PO BID 05/25/21 12/27/22 Atorvastatin Calcium [Lipitor] 80 mg PO HS 05/25/21 12/27/22 Isosorbide Mononitrate ER [Imdur] 30 mg PO BID 07/08/21 12/27/22 Doxazosin [Cardura] 2 mg PO BID 12/24/21 12/27/22 lisinopriL [Zestril] 5 mg PO MOWEFR 12/24/21 12/27/22 Previous Rx's Medication Instructions Recorded amLODIPine [Norvasc] 10 mg PO HS #30 tab 09/17/20 HYDROcodone/APAP 5-325MG [[place] 1 tab PO Q6HR PRN 3 Days #6 tab 12/30/22 5-325] Allergies Allergy/AdvReac Type Severity Reaction Status Date / Time Penicillins Allergy Swelling Verified 02/01/23 21:17 Review of Systems ROS Statement: Those systems with pertinent positive or pertinent negative responses have been documented in the HPI. ROS Other: All systems not noted in ROS Statement are negative. Constitutional: Denies: fever, chills, weakness Eyes: Denies: vision change Respiratory: Denies: cough, dyspnea Cardiovascular: Denies: chest pain, palpitations, edema Gastrointestinal: Denies: abdominal pain, nausea, vomiting, diarrhea, constipation, melena, hematochezia Genitourinary: Denies: dysuria, hematuria Musculoskeletal: Denies: back pain Skin: Denies: rash Neurological: Reports: weakness, numbness. Denies: headache, paresthesias Past Medical History Past Medical History: Atrial Fibrillation, CVA/TIA, Diabetes Mellitus, Dialysis, Hypertension, Osteoarthritis (OA), Renal Disease, Sleep Apnea/CPAP/BIPAP Additional Past Medical History / Comment(s): Stage IV chronic kidney disease (hemodialysis M-W-F), has current device in upper rt chest for dialysis. Diet controlled diabetes. Right hand/leg weakness d/t CVA. Hearing loss/DEAF left ear effecting balance experiencing dizziness. History of Any Multi-Drug Resistant Organisms: None Reported Past Surgical History: Adenoidectomy, Appendectomy, Tonsillectomy Additional Past Surgical History / Comment(s): Dialysis device implanted, FISTULAGRAM. Past Anesthesia/Blood Transfusion Reactions: Previous Problems w/ Anesthesia, Motion Sickness Additional Past Anesthesia/Blood Transfusion Reaction / Comment(s): Hard time coming out of anesthesia and waking up Past Psychological History: No Psychological Hx Reported Smoking Status: Never smoker Past Alcohol Use History: None Reported Past Drug Use History: None Reported - Past Family History Father Additional Family Medical History / Comment(s): leukemia Mother Family Medical History: Diabetes Mellitus, Hypertension General Exam Limitations: no limitations General appearance: alert, in no apparent distress Head exam: Present: atraumatic, normocephalic Eye exam: Present: normal appearance. Absent: scleral icterus, conjunctival injection ENT exam: Present: normal oropharynx Neck exam: Present: normal inspection Respiratory exam: Present: normal lung sounds bilaterally. Absent: respiratory distress, wheezes, rales, rhonchi, stridor Cardiovascular Exam: Present: regular rate, normal rhythm, normal heart sounds. Absent: systolic murmur, diastolic murmur, rubs, gallop GI/Abdominal exam: Present: soft. Absent: distended, tenderness, guarding, rebound, rigid, mass Extremities exam: Present: normal inspection, normal capillary refill. Absent: pedal edema, calf tenderness Back exam: Present: normal inspection. Absent: CVA tenderness (R), CVA tenderness (L) Neurological exam: Present: alert, oriented X3, CN II-XII intact, motor sensory deficit Skin exam: Present: warm, dry, intact, normal color. Absent: rash Course Vital Signs 02/01/23 02/01/23 02/02/23 21:13 22:53 01:21 Temperature 98.3 F Pulse Rate 80 71 78 Respiratory 20 18 12 Rate Blood Pressure 140/75 157/87 145/93 O2 Sat by Pulse 99 99 100 Oximetry EKG Findings - EKG Results: EKG: interpreted by TEO, sinus rhythm (Rate 76 bpm) - Blocks, Cla[place], Hypertrophy, ST Abn: AV and intraventricular conduction: 1 AV block, right bundle branch block (fixe d/intermittent, complete/incomplete), left anterior fascicular block Medical Decision Making - Medical Decision Making This patient is a 57-year-old man with history of end-stage renal disease on hemodialysis. He is here for right leg symptoms that came on after his dialysis session The patient's exam does show that there is some drift with the right leg, however this is where he has the residual from his previous stroke. Was pt. sent in by a medical professional or institution ([facility], [employer], urgent care, hospital, or detention...) When possible be specific @ -[No] Did you speak to anyone other than the patient for history (EMS, parent, family, police, friend...)? What history was obtained from this source @ -[No] Did you review nursing and triage notes (agree or disagree)? Why? @ -[I reviewed and agree with nursing and triage notes] Were old charts reviewed (outside hosp., previous admission, EMS record, old EKG, old radiological studies, urgent care reports/EKG's, detention records)? Report findings @ -[old charts were reviewed] Differential Diagnosis (chest pain, altered mental status, abdominal pain women, abdominal pain men, vaginal bleeding, weakness, fever, dyspnea, syncope, headache, dizziness, GI bleed, back pain, seizure, CVA, palpatations, mental health, musculoskeletal)? @ -[Differential Musculoskeletal Muscular strain, contusion, ligament sprain, fracture, arthritis, septic arthritis, bursitis, cellulitis, muscle spasm, nerve compression, DVT, arterial occlusion, herpes zoster, electrolyte abnormality, tumor.... This is not meant to be in all inclusive list EKG interpreted by me (3pts min.). @ -[As above] X-rays interpreted by me (1pt min.). @ -[None done] CT interpreted by me (1pt min.). @ -[None done] U/S interpreted by me (1pt. min.). @ -[None done] What testing was considered but not performed or refused? (CT, X-rays, U/S, la bs)? Why? @ -[None] What meds were considered but not given or refused? Why? @ -[None] Did you discuss the management of the patient with other professionals (professionals i.e. , PA, NEWSP[employer]ER PUBLISHER, lab, RT, psych nurse, social worker school, marketing recruiter, teacher, protocol officer, disease case manager)? Give summary @ -[Case was discussed with admitting physician Was smoking cessation discussed for >3mins.? @ -[No] Was critical care preformed (if so, how long)? @ -[No] Were there social determinants of health that impacted care today? How? (Homelessness, low income, unemployed, alcoholism, drug addiction, transportation, low edu. Level, literacy, decrease access to med. care, prison, rehab)? @ -[No] Was there de-escalation of care discussed even if they declined (Discuss DNR or withdrawal of care, Hospice)? DNR status @ -[No] What co-morbidities impacted this encounter? (DM, HTN, Smoking, COPD, CAD, Cancer, CVA, ARF, Chemo, Hep., AIDS, mental health diagnosis, sleep apnea, morbid obesity)? @ -[None] Was patient admitted / discharged? Hospital course, mention meds given and route, prescriptions, significant lab abnormalities, going to OR and other pertinent info. @ -[This patient is 57-year-old man who does have multiple risk factors, presenting with right leg symptoms. The initial workup does not reveal the etiology, and I had discussed the patient's case with admitting physician and written admitting orders, when the patient changed his mind and decided to leave. He was able to ambulate from the department. We discussed appropriate further care and follow-up as well as return parameters. Undiagnosed new problem with uncertain prognosis? @ -[No] Drug Therapy requiring intensive monitoring for toxicity (Heparin, Nitro, Insulin, Cardizem)? @ -[No] Were any procedures done? @ -[No] Diagnosis/symptom? @ -[Acute right leg weakness Acute, or Chronic, or Acute on Chronic? @ -[Acute on chronic Uncomplicated (without systemic symptoms) or Complicated (systemic symptoms)? @ -[default] Side effects of treatment? @ -[No] Exacerbation, Progression, or Severe Exacerbation? @ -[No] Poses a threat to life or bodily function? How? (Chest pain, [place], [place], pneumonia, PE, COPD, DKA, ARF, appy, cholecystitis, CVA, Diverticulitis, Homicidal, Suicidal, threat to staff... and all critical care pts) @ -[Undetermined, as patient left AGAINST MEDICAL ADVICE - Lab Data Result diagrams: 02/01/23 21:29 02/01/23 21:29 Lab Results 02/01/23 02/01/23 02/01/23 Range/Units 21:29 21:29 21:29 WBC 8.9 (3.8-10.6) k/uL RBC 3.93 L (4.30-5.90) m/uL Hgb 12.2 L (13.0-17.5) gm/dL Hct 34.6 L (39.0-53.0) % MCV 87.9 (80.0-100.0) fL MCH 31.0 (25.0-35.0) pg MCHC 35.2 (31.0-37.0) g/dL RDW 13.6 (11.5-15.5) % Plt Count 232 (150-450) k/uL MPV 8.3 Neutrophils % 70 % Lymphocytes % 20 % Monocytes % 5 % Eosinophils % 3 % Basophils % 1 % Neutrophils # 6.2 (1.3-7.7) k/uL Lymphocytes # 1.7 (1.0-4.8) k/uL Monocytes # 0.5 (0-1.0) k/uL Eosinophils # 0.2 (0-0.7) k/uL Basophils # 0.1 (0-0.2) k/uL PT 10.9 (9.0-12.0) sec INR 1.0 (<1.2) APTT 27.0 (22.0-30.0) sec Sodium 138 (137-145) mmol/L Potassium 3.2 L (3.5-5.1) mmol/L Chloride 93 L (98-107) mmol/L Carbon Dioxide 31 H (22-30) mmol/L Anion Gap 14 mmol/L BUN 66 H (9-20) mg/dL Creatinine 10.17 H* (0.66-1.25) mg/dL Est GFR (CKD-EPI)AfAm 6 (>60 ml/min/1.73 sqM) Est GFR (CKD-EPI)NonAf 5 (>60 ml/min/1.73 sqM) Glucose 156 H (74-99) mg/dL POC Glucose (mg/dL) (70-110) mg/dL POC Glu Tile Roofer ID Plasma Lactic Acid Kiko (0.7-2.0) mmol/L Calcium 8.2 L (8.4-10.2) mg/dL Magnesium 1.9 (1.6-2.3) mg/dL Total Bilirubin 1.1 (0.2-1.3) mg/dL AST 15 L (17-59) U/L ALT 13 (4-49) U/L Alkaline Phosphatase 65 (38-126) U/L Troponin I (0.000-0.034) ng/mL Total Protein 7.6 (6.3-8.2) g/dL Albumin 4.3 (3.5-5.0) g/dL 02/01/23 02/01/23 02/01/23 Range/Units 21:29 21:29 21:30 WBC (3.8-10.6) k/uL RBC (4.30-5.90) m/uL Hgb (13.0-17.5) gm/dL Hct (39.0-53.0) % MCV (80.0-100.0) fL MCH (25.0-35.0) pg MCHC (31.0-37.0) g/dL RDW (11.5-15.5) % Plt Count (150-450) k/uL MPV Neutrophils % % Lymphocytes % % Monocytes % % Eosinophils % % Basophils % % Neutrophils # (1.3-7.7) k/uL Lymphocytes # (1.0-4.8) k/uL Monocytes # (0-1.0) k/uL Eosinophils # (0-0.7) k/uL Basophils # (0-0.2) k/uL PT (9.0-12.0) sec INR (<1.2) APTT (22.0-30.0) sec Sodium (137-145) mmol/L Potassium (3.5-5.1) mmol/L Chloride (98-107) mmol/L Carbon Dioxide (22-30) mmol/L Anion Gap mmol/L BUN (9-20) mg/dL Creatinine (0.66-1.25) mg/dL Est GFR (CKD-EPI)AfAm (>60 ml/min/1.73 sqM) Est GFR (CKD-EPI)NonAf (>60 ml/min/1.73 sqM) Glucose (74-99) mg/dL POC Glucose (mg/dL) 146 H (70-110) mg/dL POC Glu Tile Roofer ID Christiano Diaz Plasma Lactic Acid Kiko 0.7 (0.7-2.0) mmol/L Calcium (8.4-10.2) mg/dL Magnesium (1.6-2.3) mg/dL Total Bilirubin (0.2-1.3) mg/dL AST (17-59) U/L ALT (4-49) U/L Alkaline Phosphatase (38-126) U/L Troponin I 0.078 H* (0.000-0.034) ng/mL Total Protein (6.3-8.2) g/dL Albumin (3.5-5.0) g/dL Disposition Clinical Impression: Weakness of right lower extremity Disposition: Left Against Medical Advice Condition: Stable Is patient prescribed a controlled substance at d/c from ED?: No
[2023-02-01 21:45] LABS: Basophils # (A) 0.1 k/uL (0-0.2); Basophils % (A) 1 %; Eosinophils # (A) 0.2 k/uL (0-0.7); Eosinophils % (A) 3 %; HCT 34.6 % (39.0-53.0); HGB 12.2 gm/dL (13.0-17.5); Lymphocytes # (A) 1.7 k/uL (1.0-4.8); Lymphocytes % (A) 20 %; MCHC 35.2 g/dL (31.0-37.0); MCV 87.9 fL (80.0-100.0); Mean Platelet Volume 8.3; Monocytes # (A) 0.5 k/uL (0-1.0); Monocytes % (A) 5 %; Neutrophils # (A) 6.2 k/uL (1.3-7.7); Neutrophils % (A) 70 %; Platelet Count 232 k/uL (150-450); RBC 3.93 m/uL (4.30-5.90); RDW 13.6 % (11.5-15.5); WBC 8.9 k/uL (3.8-10.6)
[2023-02-01 21:57] LABS: Albumin 4.3 g/dL (3.5-5.0); Calcium 8.2 mg/dL (8.4-10.2); Magnesium 1.9 mg/dL (1.6-2.3); Potassium 3.2 mmol/L (3.5-5.1); Total Bilirubin 1.1 mg/dL (0.2-1.3); Total Protein 7.6 g/dL (6.3-8.2)
[2023-02-01 22:08] LABS: Prothrombin Time 10.9 sec (9.0-12.0)
--- NOTE | 2023-02-01 22:18 | CT ---
EXAMINATION TYPE: CT brain wo con CT DLP: 1196.4 mGycm, Automated exposure control for dose reduction was used. DATE OF EXAM: 02/01/2023 9:45 PM COMPARISON: 05/04/2022. CLINICAL INDICATION:Male, 57 years old with history of weakness, Weakness TECHNIQUE: Brain: Axial CT images of the brain were obtained with coronal and sagittal reformats created and rev iewed. Contrast used: None. Oral contrast used: None. FINDINGS: Brain: Extra-axial spaces: No abnormal extra-axial fluid collections. Ventricular system: Dilatation in proportion to cerebral atrophy. Cerebral parenchyma: Cerebral atrophy. No acute intraparenchymal hemorrhage or mass effect. The meehan -white junction is well differentiated. Cerebellum: Unremarkable. Mass effect: No evidence of midline shift. Intracranial vasculature: Atherosclerotic calcifications of the intracranial vessels. Soft tissues: Normal. Calvarium/osseous structures: No depressed skull fracture. Paranasal sinuses and mastoid air cells: Mild scattered paranasal sinus disease. Visualized orbits: Bilateral aphakia IMPRESSION: No acute intracranial process.
--- NOTE | 2023-02-01 23:34 | XR ---
EXAM: XR Chest, 2 Views CLINICAL HISTORY: Weakness TECHNIQUE: Frontal and lateral views of the chest. COMPARISON: 09/14/2020 FINDINGS: Lungs: Improved aeration at the lung bases. The pulmonary vasculature is less prominent and thought to be within normal limits. Pleural space: There is blunting of the left costophrenic margin. The right costophrenic margin is sharp. No pneumothorax. Heart: The cardiac silhouette appears less prominent from the previous exam. Mediastinum: Unremarkable. No significant abnormality identified. The trachea is midline. Bones/joints: Unremarkable. Tubes, lines and devices: A right internal jugular approach tunneled hemodialysis catheter is noted with the tip in the right atrium. IMPRESSION: Improved aeration at the lung bases. The pulmonary vasculature is less prominent and thought to be within normal limits. A small left pleural effusion is suspected. No pneumothorax.
[2023-02-02] MEDS ORDERED: NALOXONE 0.4 MG/ML 1 ML VIAL IV PRN (01:08)
[2023-02-02] MEDS ORDERED: ACETAMINOPHEN TAB 325 MG TAB PO PRN (01:08)
[2023-02-02] MEDS ORDERED: DEXTROSE 50% SYRINGE 50 ML IVP PRN ×2 (01:13)
[2023-02-02 01:22] VITALS: BP 145/93; PULSE 78; RESP 12
[2023-02-02] MEDS ORDERED: INSULIN ASPART (NovoLOG) 100 UNIT/ML VIAL SQ SCH (07:30)
== END 2023-02-02 02:17 | disposition left against medical advice (07) ==
LOC: EC 21:10 → UNDOADMIN 02-02 01:12 → 3SCARD 02-02 01:12 → EC 02-02 02:17 → UNDODISIN 02-02 02:17
DX: I69.351 Hemiplegia and hemiparesis following cerebral infarction affecting right dominant side (principal); Z53.29 Procedure and treatment not carried out because of patient's decision for other reasons; N18.4 Chronic kidney disease, stage 4 (severe); I45.2 Bifascicular block; I48.91 Unspecified atrial fibrillation; E11.22 Type 2 diabetes mellitus with diabetic chronic kidney disease; M19.90 Unspecified osteoarthritis, unspecified site; G47.30 Sleep apnea, unspecified; I12.9 Hypertensive chronic kidney disease with stage 1 through stage 4 chronic kidney disease, or unspecified chronic kidney disease; H91.92 Unspecified hearing loss, left ear; I44.0 Atrioventricular block, first degree; Z99.2 Dependence on renal dialysis; Z79.01 Long term (current) use of anticoagulants; Z79.899 Other long term (current) drug therapy
CPT/HCPCS: 36415; 70450; 71046; 80053; 83605; 83735; 84484; 85025; 85610; 85730; 93005; 99285